=== PATIENT | male | born 1940 | race Caucasian/White ===

== ENCOUNTER 2017-01-03 13:08 | Emergency (ER) | payer BC, OTHER ==
[2017-01-03 13:24] VITALS: BP 151/72; PULSE 65; TEMP 97.4; BMI 33.3
--- NOTE | 2017-01-03 15:53 | PDOC ---
History of Present Illness - General Chief Complaint: Redness To Affected Area Stated Complaint: LT ARM/WRIST PAIN, SWOLLEN Time Seen by Provider: 01/03/17 14:07 Past History - Past Medical History Allergies/Adverse Reactions: Allergies Allergy/AdvReac Type Severity Reaction Status Date / Time No Known Allergies Allergy Verified 01/03/17 13:19 Home Medications: Ambulatory Orders Rivaroxaban [Xarelto -] 15 mg PO DAILY 09/11/15 Furosemide [Lasix -] 40 mg PO DAILY 05/04/16 Nebivolol HCl [Bystolic] 10 mg PO DAILY 05/04/16 Gabapentin [Neurontin -] 100 mg PO TID #90 capsule 05/13/16 Rosuvastatin [Crestor -] 5 mg PO HS tablet 05/13/16 Naproxen Sodium [Aleve] 220 mg PO PRN PRN 01/03/17 Oxycodone HCl/Acetaminophen [Percocet 5-325 mg Tablet] 1 tab PO TID PRN Anemia: No Asthma: No Cancer: No Cardiac Disorders: Yes (arrythmia; cad) CVA: No COPD: No Dementia: No Diabetes: No GI Disorders: No Disorders: No HTN: Yes Hypercholesterolemia: No Liver Disease: No Seizures: No Thyroid Disease: No Other medical history: pad - Surgical History Abdominal Surgery: No Appendectomy: No Cardiac Surgery: Yes (triple bypass 1992) Cholecystectomy: No Lung Surgery: No Neurologic Surgery: No Orthopedic Surgery: No - Psycho/Social/Smoking Cessation Hx Anxiety: No Suicidal Ideation: No Smoking History: Never smoked Have you smoked in the past 12 months: No Information on smoking cessation initiated: No Hx Alcohol Use: No Drug/Substance Use Hx: No Substance Use Type: None *Physical Exam - Vital Signs Last Vital Signs Temp Pulse Resp BP Pulse Ox 97.4 F L 65 18 151/72 95 01/03/17 13:19 01/03/17 13:19 01/03/17 13:19 01/03/17 13:19 01/03/17 13:19 Medical Decision Making - Medical Decision Making 01/03/17 15:02 Unable to locate patient in the emergency department, waiting area, ER ramp, or hallways. As per nurse information systems project manager patient was oppositional regards to changing over to a gown for evaluation and feels patient may have left before medical evaluation. *DC/Admit/Observation/Transfer Diagnosis at time of Disposition: lbme - Discharge Dispostion Disposition: LEFT BEFORE MED EVAL, [facility] Condition at time of disposition: Unchanged/Unknown - Referrals Referrals: Isidro Brooks PA [Primary Care Provider] -
== END 2017-01-03 16:30 | disposition left against medical advice (07) ==
LOC: JER 13:08
DX: Z53.21 Procedure and treatment not carried out due to patient leaving prior to being seen by health care provider (principal)
CPT/HCPCS: 99282-25

== ENCOUNTER 2018-10-10 18:43 | Emergency (ER) | payer BC, OTHER ==
--- NOTE | 2018-10-10 18:53 | PDOC ---
Rapid Medical Evaluation Time Seen by Provider: 10/10/18 18:49 Medical Evaluation: Allergies Allergy/AdvReac Type Severity Reaction Status Date / Time No Known Allergies Allergy Verified 01/03/17 13:19 10/10/18 18:50 I have performed a brief in-person evaluation of this patient. The patient presents with a chief complaint of: pedal edema Pertinent physical exam findings: End expiratory wheezes. RRR. s1s1. No m/r/g. I have ordered the following: labs, urine, CXR, EKG The patient will proceed to the ED for further evaluation. Discharge Disposition - Diagnosis Edema - Referrals - Patient Instructions - Post Discharge Activity
[2018-10-10 18:55] VITALS: BMI 32.1
[2018-10-10 20:01] LABS: BASO % 0.9 % (0-2.0); EOS % 5.9 % (0-4.5); HEMOGLOBIN 10.7 GM/dL (11.7-16.9); LYMPH % 12.7 % (8-40); MCH 29.3 pg (25.7-33.7); MCHC 34.5 g/dl (32.0-35.9); MEAN PLT VOLUME 6.3 fl (7.5-11.1); MONO % 7.2 % (3.8-10.2); NEUT % 73.3 % (42.8-82.8); PLATELET COUNT 359 K/MM3 (134-434); RBC 3.65 M/mm3 (4.00-5.60); RDW 15.3 % (11.9-15.9); WHITE BLOOD COUNT 8.1 K/mm3 (4.0-10.0)
[2018-10-10 20:08] LABS: INR 1.35 (0.83-1.09)
[2018-10-10 20:22] LABS: ALBUMIN 2.8 g/dl (3.4-5.0); ALK PHOS 88 U/L (45-117); ANION GAP 8 MMOL/L (8-16); BILIRUBIN,TOTAL 0.6 mg/dL (0.2-1); BLOOD UREA NITROGEN 26 mg/dL (7-18); CALCIUM 8.3 mg/dL (8.5-10.1); CHLORIDE 100 mmol/L (98-107); CO2 27 mmol/L (21-32); CREATININE 1.9 mg/dL (0.55-1.3); GLUCOSE,RANDOM 108 mg/dL (74-106); MAGNESIUM 2.3 mg/dL (1.8-2.4); N-TERMINAL BNP 3466.8 pg/ml (5-450); POTASSIUM 3.9 mmol/L (3.5-5.1); SGOT/AST 15 U/L (15-37); SGPT/ALT 12 U/L (13-61); SODIUM 135 mmol/L (136-145)
--- NOTE | 2018-10-10 22:21 | PDOC ---
History of Present Illness - General Chief Complaint: Edema Stated Complaint: PCP ADMIT/LEG PAIN Time Seen by Provider: 10/10/18 18:49 - History of Present Illness Initial Comments: 10/10/18 22:18 78 yo M with h/o HLD, HTN, CAD s/p CABG, A-fib on AC, who p/w BL LE edema. Patient reports 1 week of worsening BLE swelling. 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 Denies leg pain. Patient with crhonic leg redness, and non healing ulcers. Recent vasuclar procedure and debridement of LLE leg wound/ulcer. Denies recent leg trauma or recent immobilization, or calf pain. Lasix recently d/c'd x 2 weeks ago. Now on Toresmide 20 mg BID. No other complaints. Patient compliant with medications. Patient denies N/V, cough, wheezing, orthopnea, PND, F,C, CP, SOB, urinary complaints, abdominal pain, diarrhea, constipation, lightheadedness, weakness, sensory changes. PMHx: as noted above ROS: as noted Allergies: [facility] [employer] Dr. Margarette Aldrich [facility] Past History - Past Medical History Allergies/Adverse Reactions: Allergies Allergy/AdvReac Type Severity Reaction Status Date / Time No Known Allergies Allergy Verified 01/03/17 13:19 Home Medications: Ambulatory Orders Rivaroxaban [Xarelto] 15 mg PO DAILY 09/11/15 Gabapentin [Neurontin -] 100 mg PO TID #90 capsule 05/13/16 Oxycodone HCl/Acetaminophen [Percocet 5-325 mg Tablet] 1 tab PO TID PRN Atorvastatin Ca [Lipitor] 20 mg PO HS 10/10/18 Torsemide 20 mg PO BID 10/10/18 Anemia: No Asthma: No Cancer: No Cardiac Disorders: Yes (arrythmia; cad) CVA: No COPD: No Dementia: No Diabetes: No GI Disorders: No Disorders: No HTN: Yes Hypercholesterolemia: No Liver Disease: No Seizures: No Thyroid Disease: No - Surgical History Abdominal Surgery: No Appendectomy: No Cardiac Surgery: Yes (triple bypass 1992) Cholecystectomy: No Lung Surgery: No Neurologic Surgery: No Orthopedic Surgery: No - Suicide/Smoking/Psychosocial Hx Smoking History: Never smoked Have you smoked in the past 12 months: No Hx Alcohol Use: No Drug/Substance Use Hx: No Substance Use Type: None Review of Systems - Review of Systems Comments:: 10/10/18 22:20 GENERAL/CONSTITUTIONAL: No fever or chills. No weakness. HEAD, EYES, EARS, NOSE AND THROAT: No change in vision. No ear pain or discharge. No sore throat. CARDIOVASCULAR: No chest pain or shortness of breath RESPIRATORY: No cough, wheezing, or hemoptysis. GASTROINTESTINAL: No nausea, vomiting, diarrhea or constipation. GENITOURINARY: No dysuria, frequency, or change in urination. MUSCULOSKELETAL: BL LE edema. No joint or muscle pain. No neck or back pain. SKIN: No rash NEUROLOGIC: No headache, vertigo, loss of consciousness, or change in strength/ sensation. ENDOCRINE: No increased thirst. No abnormal weight change HEMATOLOGIC/LYMPHATIC: No anemia, easy bleeding, or history of blood clots. ALLERGIC/IMMUNOLOGIC: No hives or skin allergy. *Physical Exam - Vital Signs Last Vital Signs Temp Pulse Resp BP Pulse Ox 97.8 F 82 20 160/72 99 10/10/18 18:49 10/10/18 18:49 10/10/18 18:49 10/10/18 18:49 10/10/18 18:49 - Physical Exam Comments: 10/10/18 22:20 GENERAL: Awake, alert, and fully oriented, in no acute distress HEAD: No signs of trauma, normocephalic, atraumatic EYES: PERRLA, EOMI, sclera anicteric, conjunctiva clear ENT: Auricles normal inspection, hearing grossly normal, nares patent, oropharynx clear without exudates. Moist mucosa NECK: Normal ROM, supple, no lymphadenopathy, JVD, or masses LUNGS: No distress, speaks full sentences, clear to auscultation bilaterally HEART: Regular rate and rhythm, normal S1 and S2, no murmurs, rubs or gallops, peripheral pulses normal and equal bilaterally. EXTREMITIES : BL LE with circumferential, erythema extending from dorsum of foot to knee. 2+ pitting edema throughout BL LE. 2 x 2cm left pretibial ulcers with full thickness tissue loss, and absent bony visualization. BL LE with warmth, and slight ttp. difficult to palpate DP and PT pulses. Normal range of motion, No clubbing or cyanosis. SKIN: Warm, Dry, normal turgor, no rashes or lesions noted Moderate Sedation - Procedure Monitoring Vital Signs: Procedure Monitoring Vital Signs Temperature 97.8 F 10/10/18 18:49 Pulse Rate 82 10/10/18 18:49 Respiratory Rate 20 10/10/18 18:49 Blood Pressure 160/72 10/10/18 18:49 O2 Sat by Pulse Oximetry (%) 99 10/10/18 18:49 ED Treatment Course - LABORATORY CBC & Chemistry Diagram: 10/10/18 19:48 10/10/18 19:48 - ADDITIONAL ORDERS Additional order review: Laboratory Results 10/10/18 10/10/18 19:48 19:48 PT with INR 16.00 H INR 1.35 H Sodium 135 L Potassium 3.9 Chloride 100 Carbon Dioxide 27 Anion Gap 8 BUN 26 H Creatinine 1.9 H Creat Clearance w eGFR 34.46 Random Glucose 108 H Calcium 8.3 L Magnesium 2.3 Total Bilirubin 0.6 AST 15 ALT 12 L Alkaline Phosphatase 88 Creatine Kinase 61 Troponin I < 0.02 B-Natriuretic Peptide 3466.8 H Total Protein 9.0 H Albumin 2.8 L 10/10/18 19:48 RBC 3.65 L MCV 85.0 MCHC 34.5 RDW 15.3 MPV 6.3 L Neutrophils % 73.3 Lymphocytes % 12.7 Monocytes % 7.2 Eosinophils % 5.9 H D Basophils % 0.9 Medical Decision Making - Medical Decision Making 10/10/18 23:18 78 yo M with h/o HLD, HTN, CAD s/p CABG, A-fib on AC, who p/w acute on chronic BL LE edema. VSS, AF, A&OX3. + 2 + BL LE edema, with erythema, and warmth. No other evidence of fluid/volume overload. Lungs CTA. Low suspicon acute CHF. Low risk DVT based on Weils criteria. Possible cellultiis. Low suspicion nec. fasc. or abscess. Ed Course: clindamycin 10/10/18 23:24 WBC: 8.1 Patient with acute IMMANUEL BUN/CR: 26/1.9 (baseline Cr~1.5-1.9) 10/10/18 23:25 BNP: 3467, patient without resp complaints D/c with f/u wound care and cardiology. Medicine / Dr. Wilcox consulted and patient does not meet admission criteria. *DC/Admit/Observation/Transfer Diagnosis at time of Disposition: IMMANUEL (acute kidney injury) Edema Qualifiers: Edema type: unspecified Qualified Code(s): R60.9 - Edema, unspecified - Discharge Dispostion Condition at time of disposition: Stable Decision to Admit order: Yes - Referrals Referrals: Delfino Parks [Primary Care Provider] - Adalberto Owens MD [Non Staff, Medical] - - Patient Instructions Printed Discharge Instructions: DI for Peripheral Edema -- Bilateral Additional Instructions: Please return to the emergency department with any new or worsening symptoms or concerns. Please follow up with your primary care physician within 72 hours. Please follow up with wound care clinic/vascular within one week. - Post Discharge Activity
[2018-10-10] MEDS ORDERED: CLINDAMYCIN 600MG PREMIX IVPB 600 MG/50 ML BAG IVPB ONE (23:30)
--- NOTE | 2018-10-10 23:59 | PDOC ---
Attending Attestation - HPI HPI: 10/10/18 23:59 Patient is a 78 year old male with a significant past medical history of AFIB, CAD, CABG, Vein Stripping/Ligation, who presents to the ED with complaints of bilateral leg swelling that began last week. Patient reports experiencing chronic leg edema but states it began to gradually increase in intensity over time prompting him to come into the ED for further evaluation. He reports experiencing associated drainage from his legs as well as increased redness that begins at the knee and radiates towards his toes. Patient reports being prescribed lasix but states he was recently switched to torsemide x2 weeks ago and has been compliant with the medication. Denies chest pain, Sob. Denies nausea, vomiting. Denies fevers, chills. Denies contact with sick individuals, out of state travelling.. Denies dysuria, hematuria. Denies diarrhea, constipation. Denies trauma to affected area. Denies any other symptoms. Allergies: None Social history: Former smoker. No alcohol. No illicit drugs. Surgical history: triple bypass 1992 PMD: Dr. Parks <Denny Scott - Last Filed: 10/10/18 23:59> - Resident Resident Name: Manjinder Chiu - ED Attending Attestation I have performed the following: I have examined & evaluated the patient, The case was reviewed & discussed with the resident, I agree w/resident's findings & plan, Exceptions are as noted - Physicial Exam PE: 10/11/18 03:48 Agree with exam as documented by resident Ext consistent with skin irritation 2/2 chronic edema - Medical Decision Making 10/11/18 03:49 LE consistent with chronic edema and skin changes with uninfected ulcers distally No signs of infection f/u wound care c/w diruesis plan per pcp <Jan Prabhakar - Last Filed: 10/11/18 03:49>
[2018-10-11 00:39] VITALS: BP 139/68; PULSE 56; TEMP 97.9
--- NOTE | 2018-10-11 11:59 | EKG ---
Test Reason : Blood Pressure : / mmHG Vent. Rate : 066 BPM Atrial Rate : 060 BPM P-R Int : 000 ms QRS Dur : 108 ms QT Int : 432 ms P-R-T Axes : 000 060 -32 degrees QTc Int : 452 ms ATRIAL FIBRILLATION NONSPECIFIC T WAVE ABNORMALITY ABNORMAL ECG WHEN COMPARED WITH ECG OF 04-MAY-2016 17:35, NONSPECIFIC T WAVE ABNORMALITY NOW EVIDENT IN ANTERIOR LEADS Confirmed by MORIAH BLUM, DONOVAN ([id number]) on 10/11/2018 11:59:00 AM Referred By: Confirmed By:DONOVAN MAJOR MD
== END 2018-10-11 00:43 | disposition home or self-care (01) ==
LOC: JER 18:43
DX: N17.9 Acute kidney failure, unspecified (principal); R60.0 Localized edema; I25.810 Atherosclerosis of coronary artery bypass graft(s) without angina pectoris; I13.10 Hypertensive heart and chronic kidney disease without heart failure, with stage 1 through stage 4 chronic kidney disease, or unspecified chronic kidney disease; Z95.1 Presence of aortocoronary bypass graft; I48.91 Unspecified atrial fibrillation; Z79.01 Long term (current) use of anticoagulants; E78.5 Hyperlipidemia, unspecified
CPT/HCPCS: 36415; 71046-TC-FY; 80053; 82550; 83735; 83880; 84484; 85025; 85610; 93005; 93010; 99283-25

== ENCOUNTER 2019-07-22 18:53 | Inpatient (IN) | payer OTHER ==
--- NOTE | 2019-07-22 19:19 | PDOC ---
Rapid Medical Evaluation Medical Evaluation: Allergies Allergy/AdvReac Type Severity Reaction Status Date / Time No Known Allergies Allergy Verified 01/03/17 13:19 I have performed a brief in-person evaluation of this patient. The patient presents with a chief complaint of: hx AFIB, CAD, CABG, Vein Stripping/Ligation; c/o LLQ pain from 2 days ago; +emesis, denies diarrhea; last BM 3 days ago; denies urinary complaints; hx of inguinal hernia 1992, denies other abd surgeries Pertinent physical exam findings: In NAD, +TTP LUQ/LLQ I have ordered the following: Labs The patient will proceed to the ED for further evaluation. 07/22/19 19:15
--- NOTE | 2019-07-22 19:59 | PDOC ---
Attending Attestation - Resident Resident Name: Leopoldo Davis - ED Attending Attestation I have performed the following: I have examined & evaluated the patient, The case was reviewed & discussed with the resident, I agree w/resident's findings & plan - HPI HPI: 07/23/19 03:07 see resident hpi - Physicial Exam PE: 07/23/19 03:07 agree with resident exam - Medical Decision Making 07/23/19 03:07 79-year-old male with abdominal pain CT scan consistent with small bowel obstruction Plan for surgical consultation and admission
[2019-07-22 21:19] LABS: BASO % 0.5 % (0-2.0); EOS % 0.5 % (0-4.5); HEMATOCRIT 44.7 % (35.4-49); HEMOGLOBIN 14.7 GM/dL (11.7-16.9); LYMPH % 10.8 % (8-40); MCH 28.9 pg (25.7-33.7); MCHC 32.8 g/dl (32.0-35.9); MEAN CELL VOLUME 87.9 fl (80-96); MEAN PLT VOLUME 7.3 fl (7.5-11.1); MONO % 14.8 % (3.8-10.2); NEUT % 73.4 % (42.8-82.8); PLATELET COUNT 327 K/MM3 (134-434); RBC 5.09 M/mm3 (4.00-5.60); RDW 15.8 % (11.9-15.9)
[2019-07-22 21:37] LABS: INR 1.23 (0.83-1.09); PROTHROMBIN TIME (PATIENT) 14.6 SEC (9.7-13.0)
[2019-07-22 21:39] LABS: ACTIVATED PTT 34.8 SECONDS (25.2-36.5)
[2019-07-22 21:52] LABS: ALBUMIN 3.8 g/dl (3.4-5.0); BILIRUBIN,TOTAL 1.8 mg/dL (0.2-1); CALCIUM 9.6 mg/dL (8.5-10.1); CREATININE 2.2 mg/dL (0.55-1.3); POTASSIUM 4.7 mmol/L (3.5-5.1)
[2019-07-22] MEDS ORDERED: ACETAMINOPHEN 1000 MG/100 ML VIAL (NON FORMULARY) IVPB ONE (23:08)
--- NOTE | 2019-07-23 01:34 | PDOC ---
History of Present Illness - General Chief Complaint: Pain Stated Complaint: LOWER ABD PAIN Time Seen by Provider: 07/22/19 19:14 History Source: Patient - History of Present Illness Initial Comments: 07/23/19 02:34 Mr. Arevalo is a 79 y/o M with hx afib on eliquis, HTN, CABG, CHF p/w three days of lower abdominal pain, N, V. He reports that the pain began on Monday after eating a sandwhich and has been worsening since its onset. 06/22 intensity, no radiation, sharp. He endorses nausea that also began on Monday, as well as 3x NBNB vomiting today. He reports that he has maintained a liquid diet since it's onset as he has been nauseated and concerned that he would vomit with solid food. He reports that the episodes of emesis today were after attempting to eat crackers. Hernia repair in 1992. PCP: [facility] Associate: Valdemar Past History - Past Medical History Allergies/Adverse Reactions: Allergies Allergy/AdvReac Type Severity Reaction Status Date / Time No Known Allergies Allergy Verified 01/03/17 13:19 Home Medications: Ambulatory Orders Rivaroxaban [Xarelto] 15 mg PO DAILY 09/11/15 Gabapentin [Neurontin -] 100 mg PO TID #90 capsule 05/13/16 Oxycodone HCl/Acetaminophen [Percocet 5-325 mg Tablet] 1 tab PO TID PRN Atorvastatin Ca [Lipitor] 20 mg PO HS 10/10/18 Torsemide 20 mg PO BID 10/10/18 Anemia: No Asthma: No Cancer: No Cardiac Disorders: Yes (arrythmia; cad) CVA: No COPD: No Dementia: No Diabetes: No GI Disorders: No Disorders: No HTN: Yes Hypercholesterolemia: No Liver Disease: No Seizures: No Thyroid Disease: No - Surgical History Abdominal Surgery: No Appendectomy: No Cardiac Surgery: Yes (triple bypass 1992) Cholecystectomy: No Lung Surgery: No Neurologic Surgery: No Orthopedic Surgery: No - Suicide/Smoking/Psychosocial Hx Smoking History: Current every day smoker Have you smoked in the past 12 months: No Number of Cigarettes Smoked Daily: 1 Information on smoking cessation initiated: No Hx Alcohol Use: No Drug/Substance Use Hx: No Substance Use Type: None Review of Systems - Review of Systems Able to Perform ROS?: Yes Comments:: 07/23/19 03:45 ROS: GENERAL/CONSTITUTIONAL: No fever or chills. No weakness. HEAD, EYES, EARS, NOSE AND THROAT: No change in vision. No ear pain or discharge. No sore throat. CARDIOVASCULAR: No chest pain or shortness of breath RESPIRATORY: No cough, wheezing, or hemoptysis. GASTROINTESTINAL: Nausea, vomiting, constipation, watery diarrhea. GENITOURINARY: No dysuria, frequency, or change in urination. MUSCULOSKELETAL: No joint or muscle swelling or pain. No neck or back pain. SKIN: No rash NEUROLOGIC: No headache, vertigo, loss of consciousness, or change in strength/ sensation. ENDOCRINE: No increased thirst. No abnormal weight change HEMATOLOGIC/LYMPHATIC: No anemia, easy bleeding, or history of blood clots. ALLERGIC/IMMUNOLOGIC: No hives or skin allergy. *Physical Exam - Vital Signs Last Vital Signs Temp Pulse Resp BP Pulse Ox 98.2 F 64 18 108/59 L 100 07/22/19 19:16 07/22/19 19:16 07/22/19 19:16 07/22/19 19:16 07/22/19 19:16 - Physical Exam Comments: 07/23/19 03:42 PE: GENERAL: Awake, alert, and fully oriented, mild distress HEAD: No signs of trauma, normocephalic, atraumatic EYES: PERRLA, EOMI, sclera anicteric, conjunctiva clear ENT: Auricles normal inspection, hearing grossly normal, nares patent, oropharynx clear without exudates. Moist mucosa NECK: Normal ROM, supple, no lymphadenopathy, JVD, or masses LUNGS: No distress, speaks full sentences, clear to auscultation bilaterally HEART: Regular rate and rhythm, normal S1 and S2, no murmurs, rubs or gallops, peripheral pulses normal and equal bilaterally. ABDOMEN: Mild tenderness with deep palpations of LLQ, RLQ. Soft, normoactive bowel sounds. No guarding, no rebound. No masses EXTREMITIES : Normal inspection, Normal range of motion, no edema. No clubbing or cyanosis NEUROLOGICAL: Normal speech, normal gait, no focal sensorimotor deficits SKIN: Warm, Dry, normal turgor, no rashes or lesions noted ED Treatment Course - LABORATORY CBC & Chemistry Diagram: 07/22/19 21:05 07/22/19 21:05 - ADDITIONAL ORDERS Additional order review: Laboratory Results 07/22/19 07/22/19 07/22/19 21:05 21:05 21:05 PT with INR 14.60 H INR 1.23 H PTT (Actin FS) 34.8 Sodium Potassium Chloride Carbon Dioxide Anion Gap BUN Creatinine Est GFR (CKD-EPI)AfAm Est GFR (CKD-EPI)NonAf Random Glucose Lactic Acid 2.0 Calcium Total Bilirubin AST ALT Alkaline Phosphatase Creatine Kinase 98 Troponin I < 0.02 Total Protein Albumin Lipase 07/22/19 21:05 PT with INR INR PTT (Actin FS) Sodium 137 Potassium 4.7 Chloride 96 L Carbon Dioxide 32 Anion Gap 9 BUN 44.0 H Creatinine 2.2 H Est GFR (CKD-EPI)AfAm 31.84 Est GFR (CKD-EPI)NonAf 27.47 Random Glucose 109 H Lactic Acid Calcium 9.6 Total Bilirubin 1.8 H AST 21 ALT 15 Alkaline Phosphatase 98 Creatine Kinase Troponin I Total Protein 9.0 H Albumin 3.8 Lipase 79 07/22/19 21:05 RBC 5.09 MCV 87.9 MCHC 32.8 RDW 15.8 MPV 7.3 L D Neutrophils % 73.4 Lymphocytes % 10.8 Monocytes % 14.8 H D Eosinophils % 0.5 D Basophils % 0.5 - RADIOLOGY Radiology Studies Ordered: Category Date Time Status ABDOMEN & PELVIS CT W/O CONTR [CT] Stat CT Scan 07/23/19 00:13 Taken - Medications Given in the ED: ED Medications Discontinued Medications Generic Name Dose Route Start Last Admin Trade Name Freq PRN Reason Stop Dose Admin Acetaminophen 1,000 mg 07/22/19 23:08 07/23/19 00:10 Ofirmev Injection - IVPB 07/22/19 23:09 1,000 mg ONCE ONE Administration Medical Decision Making - Medical Decision Making 79 M with hx afib on eliquis, HTN, CABG, CHF p/w three days of lower abdominal pain, N, V, constipation, concerning for SBO vs other abdominal pathology. Plan: CBC CMP Lactate Lipase UA CT abdomen pelvis Dispo: Pending imaging, labs 07/23/19 02:45 CT notable for small bowel obstruction - R inguinal hernia with dilated bowel entering, collapsed bowel exiting. Transition zone - distal ileum within R sided inguinal hernia sac. Calcifications of L inguinal hernia sac. Some fluid in hernia sacs, in peritoneal cavity. 07/23/19 04:[address] Barone, he will see pt in AM. Plan for admission. *DC/Admit/Observation/Transfer Diagnosis at time of Disposition: Small bowel obstruction - Discharge Dispostion Condition at time of disposition: Stable Decision to Admit order: Yes - Referrals - Patient Instructions - Post Discharge Activity
[2019-07-23 01:51] LABS: EPI CELLS 2.6 /HPF (0-5/HPF); HYALINE CASTS 28 /lpf (0-8); URINE APPEARANCE CLOUDY; URINE BACTERIA 1185.1 /hpf (NEGATIVE); URINE BILIRUBIN 2+ (NEGATIVE); URINE COLOR DK YELLOW; URINE GLUCOSE (UA) NEGATIVE (NEGATIVE); URINE KETONE TRACE (NEGATIVE); URINE LEUK ESTERASE 1+ (NEGATIVE); URINE NITRITE NEGATIVE (NEGATIVE); URINE PROTEIN TRACE (NEGATIVE); URINE WBC 42 /hpf (0-5)
[2019-07-23 02:08] LABS: URINE RBC 4 /hpf (0-4)
--- NOTE | 2019-07-23 04:45 | HP ---
Admitting History and Physical - Primary Care Physician PCP: Dr. Sherman - Admission Chief Complaint: Lower/Mid abdomen pain History Source: Patient Limitations to Obtaining History: No Limitations - Past Medical History Cardiovascular: Yes: AFIB, CAD, CHF, HTN Musculoskeletal: Yes: Other (pvd/venous statsis b/l) - Past Surgical History Past Surgical History: Yes: CABG, Vein Stripping/Ligation (left leg) - Smoking History Smoking history: Current every day smoker Have you smoked in the past 12 months: No Aproximately how many cigarettes per day: 1 - Alcohol/Substance Use Hx Alcohol Use: No Home Medications - Allergies Allergies/Adverse Reactions: Allergies Allergy/AdvReac Type Severity Reaction Status Date / Time No Known Allergies Allergy Verified 01/03/17 13:19 - Home Medications Home Medications: Ambulatory Orders Rivaroxaban [Xarelto] 15 mg PO DAILY 09/11/15 Gabapentin [Neurontin -] 100 mg PO TID #90 capsule 05/13/16 Oxycodone HCl/Acetaminophen [Percocet 5-325 mg Tablet] 1 tab PO TID PRN Atorvastatin Ca [Lipitor] 20 mg PO HS 10/10/18 Torsemide 20 mg PO BID 10/10/18 Family Disease History - Family Disease History Family Disease History: Diabetes: Mother Review of Systems - Review of Systems Constitutional: reports: No Symptoms Eyes: reports: No Symptoms HENT: reports: No Symptoms Neck: reports: No Symptoms Cardiovascular: reports: No Symptoms Respiratory: reports: No Symptoms Gastrointestinal: reports: Abdominal Pain (lower abdominal pain, N, V, constipation - monday night had watery diarrhea x1) Genitourinary: reports: No Symptoms Musculoskeletal: reports: No Symptoms Integumentary: reports: No Symptoms Neurological: reports: No Symptoms Endocrine: reports: No Symptoms Hematology/Lymphatic: reports: No Symptoms Psychiatric: reports: No Symptoms Physical Examination Vital Signs: Vital Signs Temperature 97.3 F L 07/23/19 01:33 Pulse Rate 81 07/23/19 01:33 Respiratory Rate 20 07/23/19 01:33 Blood Pressure 136/75 07/23/19 01:33 O2 Sat by Pulse Oximetry (%) 96 07/23/19 01:33 Constitutional: Yes: No Distress, Calm Eyes: Yes: Conjunctiva Clear, EOM Intact HENT: Yes: Atraumatic, Normocephalic Neck: Yes: Supple, Trachea Midline Respiratory: Yes: Regular, CTA Bilaterally Gastrointestinal: Yes: Normal Bowel Sounds, Soft, Other (mild tenderness with deep palpations of LLQ, RLQ) Musculoskeletal: Yes: WNL Extremities: Yes: WNL Integumentary: Yes: WNL Neurological: Yes: Alert, Oriented Labs: CBC, BMP 07/22/19 21:05 07/22/19 21:05 Imaging - Results Cat Scan: Pending, Report Reviewed (CT Abd: notable for small bowel obstruction - R inguinal hernia with dilated bowel entering, collapsed bowel exiting. Transition zone - distal ileum within R sided inguinal hernia sac. Calcifications of L inguinal hernia sac. Some fluid in hernia sacs, in peritoneal cavity.) Problem List - Problems (1) CKD (chronic kidney disease) Code(s): N18.9 - CHRONIC KIDNEY DISEASE, UNSPECIFIED (2) CHF (congestive heart failure) Code(s): I50.9 - HEART FAILURE, UNSPECIFIED (3) Small bowel obstruction Code(s): K56.609 - UNSP INTESTNL OBST, UNSP TO PARTIAL VERSUS COMPLETE OBST (4) Hyperlipidemia Code(s): E78.5 - HYPERLIPIDEMIA, UNSPECIFIED Qualifiers: Hyperlipidemia type: Pure hypercholesterolemia (5) Hypertension Code(s): I10 - ESSENTIAL (PRIMARY) HYPERTENSION Qualifiers: Hypertension type: essential hypertension Qualified Code(s): I10 - Essential (primary) hypertension (6) S/P CABG (coronary artery bypass graft) Code(s): Z95.1 - PRESENCE OF AORTOCORONARY BYPASS GRAFT Assessment/Plan 79 y/o M with hx afib on eliquis, HTN, CABG, CHF arrived to ED for three days of lower abdominal pain, N, V. Patient reports that the pain began on Monday after eating a sandwich and has been worsening since its onset. pain 8/10, no radiation, sharp at times. patient complains of nausea that began on Monday, as well as 3x NBNB vomiting today. Patient has been avoiding whole food, has been maintained a liquid diet since onset of symptoms. # SBO CT Abd: notable for small bowel obstruction - R inguinal hernia with dilated bowel entering, collapsed bowel exiting. Transition zone - distal ileum within R sided inguinal hernia sac. Calcifications of L inguinal hernia sac. Some fluid in hernia sacs, in peritoneal cavity. - NPO - will start low rate IV fluids - follow up cbc, bmp - follow up Dr. Barone in AM # CKD - monito renal function - continue with low rate hydration # A-fib, HTN, h/o CABG, CHF - monitor vitals - hold home meds for now until cleared by surgery - Rivaroxaban 15 mg PO DAILY - Atorvastatin Ca 20 mg PO HS - Torsemide 20 mg PO BID DVT: heparin SQ for now, until cleared by surgery for Po meds Diet: NPO Visit type - Emergency Visit Emergency Visit: Yes Care time: The patient presented to the Emergency Department on the above date and was hospitalized for further evaluation of their emergent condition. - New Patient This patient is new to me today: Yes Date on this admission: 07/23/19 - Critical Care Critical Care patient: No
[2019-07-23] MEDS ORDERED: SODIUM CHLORIDE 1,000 ML IV SCH (05:15)
[2019-07-23] MEDS ORDERED: ACETAMINOPHEN 1000 MG/100 ML VIAL (NON FORMULARY) IVPB ONE ×2 (08:12→14:00)
--- NOTE | 2019-07-23 09:17 | CONSULT ---
Consult Consult Specialty:: General Surgery Reason for Consultation:: SBO - History of Present Illness Chief Complaint: Abdominal Pain and Vomiting History of Present Illness: 79 yo male PMH Afib on eliquis, HTN, CABG, CHF presented to the ED with three days of lower abdominal pain, nausea and vomiting. He reports that the pain began on Monday after eating a sandwhich and has been worsening since its onset. 8/10 intensity, no radiation, sharp. He endorses nausea that also began on Monday, as well as 3x NBNB vomiting today. He reports that he has maintained a liquid diet since it's onset as he has been nauseated and concerned that he would vomit with solid food. He reports that the episodes of emesis today were after attempting to eat crackers. Hernia repair in 1992. no previous colonoscopy (he refused when offred by PMD) we were called to assess. - History Source History Provided By: Patient, Medical Record Limitations to Obtaining History: No Limitations - Past Medical History Cardio/Vascular: Yes: AFIB, CAD, CHF, HTN Musculoskeletal: Yes: Other (pvd/venous statsis b/l) - Past Surgical History Past Surgical History: Yes: CABG, Vein Stripping/Ligation (left leg) - Alcohol/Substance Use Hx Alcohol Use: No History of Substance Use: reports: None - Smoking History Smoking history: Current every day smoker Have you smoked in the past 12 months: No Aproximately how many cigarettes per day: 1 - Social History Place of : [facility] History of Recent Travel: No Home Medications - Allergies Allergies/Adverse Reactions: Allergies Allergy/AdvReac Type Severity Reaction Status Date / Time No Known Allergies Allergy Verified 01/03/17 13:19 - Home Medications Home Medications: Ambulatory Orders Rivaroxaban [Xarelto] 15 mg PO DAILY 09/11/15 Gabapentin [Neurontin -] 100 mg PO TID #90 capsule 05/13/16 Oxycodone HCl/Acetaminophen [Percocet 5-325 mg Tablet] 1 tab PO TID PRN Atorvastatin Ca [Lipitor] 20 mg PO HS 10/10/18 Torsemide 20 mg PO BID 10/10/18 Family Disease History - Family Disease History Family Disease History: Diabetes: Mother Review of Systems - Review of Systems Constitutional: denies: Chills, Fever Eyes: denies: Blind Spots, Recent Change in Vision HENT: denies: Difficult Swallowing, Throat Pain Neck: denies: Decreased ROM, Tenderness Cardiovascular: denies: Chest Pain, Palpitations Respiratory: denies: Cough, SOB Gastrointestinal: reports: Abdominal Pain, Constipation, Vomiting Genitourinary: denies: Burning, Discharge, Dysuria Breasts: reports: No Symptoms Reported. denies: Pain Musculoskeletal: denies: Joint Swelling, Muscle Pain Integumentary: denies: Lump, Rash Neurological: denies: Seizure, Syncope Endocrine: denies: Unexplained Weight Gain, Unexplained Weight Loss Hematology/Lymphatic: denies: Easily Bruised, Excessive Bleeding Psychiatric: denies: Anxiety, Depression Physical Exam Vital Signs: Vital Signs Temperature 97.8 F 07/23/19 08:18 Pulse Rate 84 07/23/19 08:18 Respiratory Rate 16 07/23/19 08:18 Blood Pressure 143/79 07/23/19 08:18 O2 Sat by Pulse Oximetry (%) 95 07/23/19 08:18 Constitutional: Yes: Well Nourished, No Distress, Calm Eyes: Yes: Conjunctiva Clear, EOM Intact HENT: Yes: Atraumatic, Normocephalic Neck: Yes: Supple, Trachea Midline Cardiovascular: Yes: Regular Rate and Rhythm, S1, S2 Respiratory: Yes: Regular, CTA Bilaterally Gastrointestinal: Yes: Normal Bowel Sounds, Soft, Abdomen, Obese, Distention, Hernia (Bilateral inguinal hernias, right is non reducible) ...Rectal Exam: Yes: Deferred Renal/: No: CVA Tenderness - Left, CVA Tenderness - Right Breast(s): No: Mass, Nipple Inversion, Skin Changes Musculoskeletal: No: Muscle Pain, Muscle Weakness Extremities: No: Cool, Cyanosis Edema: No Peripheral Pulses WNL: Yes Integumentary: No: Jaundice, Rash Neurological: Yes: Alert, Oriented Psychiatric: Yes: Alert, Oriented Labs: CBC, BMP 07/22/19 21:05 07/22/19 21:05 Imaging - Results Cat Scan: Report Reviewed, Image Reviewed Problem List - Problems (1) Incarcerated right inguinal hernia Assessment/Plan: 79 yo male with MMP with recurrent incarcerated right inginal hernia causing SBO and a reducible left inguinal hernia NPO and IVF hydration IV antibiotcis Adequate analgesia OR for repair of recurrent incarcerted right inguinal hernia with mesh Discussed with patient risks, benefits and alternatives of laparoscopic possible open ectomy, including but not limited to bleeding, infection, injury to adjacent structures, leak or injury, intraabdominal abscess, incisional hernia, need for further procedures, ; alternatives include antibiotics, delayed or no surgery - risks of this include failure of nonoperative therapy, perforation, sepsis, recurrence, . Patient desires to proceed with operation - will take to OR for above. Informed consent signed for same. Thank you for the opportunity to participate in the care of this patient. Code(s): K40.30 - UNIL INGUINAL HERNIA, W OBST, W/O GANGR, NOT SPCF RECUR (2) CHF (congestive heart failure) Code(s): I50.9 - HEART FAILURE, UNSPECIFIED Qualifiers: Heart failure type: diastolic Heart failure chronicity: chronic Qualified Code(s): I50.32 - Chronic diastolic (congestive) heart failure (3) CKD (chronic kidney disease) Code(s): N18.9 - CHRONIC KIDNEY DISEASE, UNSPECIFIED Qualifiers: Chronic kidney disease stage: stage 3 (moderate) Qualified Code(s): N18.3 - Chronic kidney disease, stage 3 (moderate) (4) IMMANUEL (acute kidney injury) Code(s): N17.9 - ACUTE KIDNEY FAILURE, UNSPECIFIED (5) Atrial fibrillation Code(s): I48.91 - UNSPECIFIED ATRIAL FIBRILLATION Qualifiers: Atrial fibrillation type: persistent Qualified Code(s): I48.1 - Persistent atrial fibrillation
--- NOTE | 2019-07-23 09:32 | PDOC ---
*Physical Exam - Vital Signs Last Vital Signs Temp Pulse Resp BP Pulse Ox 97.8 F 84 16 143/79 95 07/23/19 08:18 07/23/19 08:18 07/23/19 08:18 07/23/19 08:18 07/23/19 08:18 ED Treatment Course - LABORATORY CBC & Chemistry Diagram: 07/22/19 21:05 07/22/19 21:05 - ADDITIONAL ORDERS Additional order review: Laboratory Results 07/23/19 07/22/19 07/22/19 00:45 21:05 21:05 PT with INR 14.60 H INR 1.23 H PTT (Actin FS) 34.8 Sodium Potassium Chloride Carbon Dioxide Anion Gap BUN Creatinine Est GFR (CKD-EPI)AfAm Est GFR (CKD-EPI)NonAf Random Glucose Lactic Acid 2.0 Calcium Total Bilirubin AST ALT Alkaline Phosphatase Creatine Kinase Troponin I Total Protein Albumin Lipase Urine Color Dk yellow Urine Appearance Cloudy Urine pH 5.0 Ur Specific [place] 1.031 Urine Protein Trace Urine Glucose (UA) Negative Urine Ketones Trace H Urine Blood Negative Urine Nitrite Negative Urine Bilirubin 2+ H Urine Urobilinogen 1.0 Ur Leukocyte Esterase 1+ H Urine WBC (Auto) 42 Urine RBC (Auto) 4 Urine Casts (Auto) 28 U Pathogenic Cast Auto None seen U Epithel Cells (Auto) 2.6 Urine Bacteria (Auto) 1185.1 07/22/19 07/22/19 21:05 21:05 PT with INR INR PTT (Actin FS) Sodium 137 Potassium 4.7 Chloride 96 L Carbon Dioxide 32 Anion Gap 9 BUN 44.0 H Creatinine 2.2 H Est GFR (CKD-EPI)AfAm 31.84 Est GFR (CKD-EPI)NonAf 27.47 Random Glucose 109 H Lactic Acid Calcium 9.6 Total Bilirubin 1.8 H AST 21 ALT 15 Alkaline Phosphatase 98 Creatine Kinase 98 Troponin I < 0.02 Total Protein 9.0 H Albumin 3.8 Lipase 79 Urine Color Urine Appearance Urine pH Ur Specific [place] Urine Protein Urine Glucose (UA) Urine Ketones Urine Blood Urine Nitrite Urine Bilirubin Urine Urobilinogen Ur Leukocyte Esterase Urine WBC (Auto) Urine RBC (Auto) Urine Casts (Auto) U Pathogenic Cast Auto U Epithel Cells (Auto) Urine Bacteria (Auto) 07/22/19 21:05 RBC 5.09 MCV 87.9 MCHC 32.8 RDW 15.8 MPV 7.3 L D Neutrophils % 73.4 Lymphocytes % 10.8 Monocytes % 14.8 H D Eosinophils % 0.5 D Basophils % 0.5 - Medications Given in the ED: ED Medications Discontinued Medications Generic Name Dose Route Start Last Admin Trade Name Thu PRN Reason Stop Dose Admin Acetaminophen 1,000 mg 07/22/19 23:08 07/23/19 00:10 Ofirmev Injection - IVPB 07/22/19 23:09 1,000 mg ONCE ONE Administration Acetaminophen 1,000 mg 07/23/19 08:12 07/23/19 08:29 Ofirmev Injection - IVPB 07/23/19 08:13 1,000 mg ONCE ONE Administration Medical Decision Making - Medical Decision Making 07/23/19 09:30 Elvin Arevalo is a 79yM w SBO NG tube not placed because hospital does not have NG tubes in supply. OG tubes do not connect to wall suction Attempted to place gastric tube x2 in both nostrils, pt refused due to discomfort. *DC/Admit/Observation/Transfer Diagnosis at time of Disposition: Small bowel obstruction - Discharge Dispostion Condition at time of disposition: Stable - Referrals - Patient Instructions - Post Discharge Activity
[2019-07-23 09:34] LABS: HEMATOCRIT 41.7 % (35.4-49); HEMOGLOBIN 13.8 GM/dL (11.7-16.9); MCH 29.1 pg (25.7-33.7); MCHC 33.2 g/dl (32.0-35.9); MEAN CELL VOLUME 87.8 fl (80-96); MEAN PLT VOLUME 7.3 fl (7.5-11.1); PLATELET COUNT 275 K/MM3 (134-434); RBC 4.75 M/mm3 (4.00-5.60); RDW 16.3 % (11.9-15.9); WHITE BLOOD COUNT 3.8 K/mm3 (4.0-10.0)
[2019-07-23 09:53] LABS: BLOOD UREA NITROGEN 53.2 mg/dL (7-18); CALCIUM 9.1 mg/dL (8.5-10.1); CREATININE 2.1 mg/dL (0.55-1.3); POTASSIUM 3.9 mmol/L (3.5-5.1)
[2019-07-23] MEDS: HEPARIN NA (PORCINE) 5,000 UNITS/ML 1ML VIAL SQ SCH ×3 (10:25→21:37)
--- NOTE | 2019-07-23 10:50 | EKG ---
Test Reason : Blood Pressure : / mmHG Vent. Rate : 092 BPM Atrial Rate : 086 BPM P-R Int : 000 ms QRS Dur : 100 ms QT Int : 386 ms P-R-T Axes : 000 059 260 degrees QTc Int : 477 ms POOR DATA QUALITY, INTERPRETATION MAY BE ADVERSELY AFFECTED ATRIAL FIBRILLATION T WAVE ABNORMALITY, CONSIDER INFEROLATERAL ISCHEMIA PROLONGED QT ABNORMAL ECG WHEN COMPARED WITH ECG OF 10-OCT-2018 19:55, T WAVE INVERSION MORE EVIDENT IN INFERIOR LEADS T WAVE INVERSION NOW EVIDENT IN LATERAL LEADS Confirmed by Lexa Mattson MD ([id number]) on 07/23/2019 10:50:22 AM Referred By: Confirmed By:Lexa Mattson MD
--- NOTE | 2019-07-23 11:00 | PN ---
Progress Note, Physician Chief Complaint: SBO History of Present Illness: 79 year old pleasant male, reluctant to get surgical intervention for SBO. Wants to consult Jagruti Mcfadden-Cardiology from [facility], would like to get transferred if Dr Aldrich agrees. Denies any pain or discomfort during my exam. Seen by surgery - Current Medication List Current Medications: Active Medications Heparin Sodium (Porcine) (Heparin -) 5,000 unit SQ BID [facility] Last Admin: 07/23/19 10:25 Dose: 5,000 unit Sodium Chloride (Normal Saline -) 1,000 mls @ 42 mls/hr IV ASDIR [facility] Last Admin: 07/23/19 05:32 Dose: 42 mls/hr - Objective Vital Signs: Vital Signs Temperature 97.8 F 07/23/19 08:18 Pulse Rate 84 07/23/19 08:18 Respiratory Rate 16 07/23/19 08:18 Blood Pressure 143/79 07/23/19 08:18 O2 Sat by Pulse Oximetry (%) 95 07/23/19 08:18 Constitutional: Yes: Well Nourished, No Distress, Calm Cardiovascular: Yes: Pulse Irregular Respiratory: Yes: Regular Gastrointestinal: Yes: Abdomen, Obese, Hypoactive Bowel Sounds, Other (diffuse rigidity) Musculoskeletal: Yes: WNL Extremities: Yes: WNL Edema: No Peripheral Pulses WNL: Yes Integumentary: Yes: Erythema (BLLE) Wound/Incision: Yes: Dressing Dry and Intact (BLLE javier bandage for PVD) Neurological: Yes: Alert, Oriented Psychiatric: Yes: Alert, Oriented Labs: CBC, BMP 07/23/19 09:10 07/23/19 09:10 INR, PTT INR 1.23 (0.83-1.09) H 07/22/19 21:05 Problem List - Problems (1) Small bowel obstruction Assessment/Plan: -CT Abd: notable for small bowel obstruction - R inguinal hernia with dilated bowel entering, collapsed bowel exiting. Transition zone - distal ileum within R sided inguinal hernia sac. Calcifications of L inguinal hernia sac. Some fluid in hernia sacs, in peritoneal cavity. -Seen by general surgery -Pt refused NG/OG -NPO -Change IVF to D51/2NS+[id number] @50cc/hr Code(s): K56.609 - UNSP INTESTNL OBST, UNSP TO PARTIAL VERSUS COMPLETE OBST (2) Atrial fibrillation Assessment/Plan: -AC on hold pending surgical intervention -Pt refuses dvt ppx Code(s): I48.91 - UNSPECIFIED ATRIAL FIBRILLATION Qualifiers: Atrial fibrillation type: persistent Qualified Code(s): I48.1 - Persistent atrial fibrillation (3) Venous (peripheral) insufficiency Assessment/Plan: -Continue with Javier bandage dressing daily -BLLE elevation Code(s): I87.2 - VENOUS INSUFFICIENCY (CHRONIC) (PERIPHERAL) Assessment/Plan -Pending surgical intervention, if patient agrees or gets transferred to [facility]. Dr Barone has already initiated communication to reach Dr Aldrich.
[2019-07-23] MEDS ORDERED: ACETAMINOPHEN 1000 MG/100 ML VIAL (NON FORMULARY) IVPB PRN (11:07)
[2019-07-23] MEDS ORDERED: D5-NS + 20 MEQ KCL - 20 MEQ/1,000 ML INFUS.BAG IV SCH (11:15)
[2019-07-23] MEDS ORDERED: PETROLATUM, WHITE 30 GM TUBE TP SCH (11:30)
[2019-07-23] MEDS ORDERED: D5-1/2NS+20 MEQ KCL - 20 MEQ/1,000 ML INFUS.BAG IV SCH (11:30)
[2019-07-23] MEDS ORDERED: ROCURONIUM BROMIDE 50 MG/5 ML SYRINGE ONE (12:09)
[2019-07-23] MEDS ORDERED: DEXAMETHASONE SOD PHOSPHATE 4 MG/1 ML VIAL ONE (12:12)
[2019-07-23] MEDS ORDERED: KETOROLAC TROMETHAMINE 30 MG/1 ML VIAL ONE (12:12)
[2019-07-23] MEDS ORDERED: LIDOCAINE HCL/PF 2% SDV 5ML VIAL ONE (12:12)
[2019-07-23] MEDS ORDERED: PROPOFOL 20 ML ONE ×2 (12:13)
[2019-07-23] MEDS ORDERED: SUCCINYLCHOLINE CHLORIDE 200 MG/10 ML SYRINGE ONE (12:14)
[2019-07-23] MEDS ORDERED: MIDAZOLAM HCL 2 MG/2 ML SINGLE DOSE VIAL ONE (12:34)
[2019-07-23] MEDS ORDERED: ONDANSETRON 4 MG/2 ML VIAL IVPUSH PRN (12:38)
[2019-07-23] MEDS ORDERED: LIDOCAINE HCL 1%, 10 MG/ML (20ML VIAL) ONE (12:45)
[2019-07-23] MEDS ORDERED: BUPIVACAINE HCL/PF 0.5% (5 MG/ML) 30 ML VIAL IJ ONE ×2 (12:45→13:04)
[2019-07-23] MEDS ORDERED: LACTATED RINGERS SOLUTION 1,000 ML IV SCH (12:45)
[2019-07-23] MEDS ORDERED: LIDOCAINE HCL 1%, 10 MG/ML (20ML VIAL) INF ONE (13:05)
[2019-07-23] MEDS ORDERED: ceFAZolin SODIUM 1 GM VIAL ONE (13:30)
[2019-07-23] MEDS ORDERED: ceFAZolin SODIUM 1 GM VIAL IVPB ONE (13:31)
[2019-07-23] MEDS ORDERED: NEOSTIGMINE METHYLSULFATE 0.5 MG/ML - 10 ML MDV ONE (14:52)
--- NOTE | 2019-07-23 15:18 | OP ---
Operative Note - Note: Operative Date: 07/23/19 Pre-Operative Diagnosis: recurrent incarcerted right inguinal hernia with small bowel obstruction Operation: repair of recurrent incarcerated/ strangulated right inguinal hernia with mesh, removal of right inguinal hernia mesh, segmental resection of small bowel with primary stapled anatomisis Findings: recurrent incarcerted right inguinal hernia, strangulated stricture of small intestines, segmental resection of this area with a primary stapled anastomosis. Onlay phasixs mesh used to reinforce the resecured area of repair Implants: phasics mesh [id number] cut to [id number] Post-Operative Diagnosis: Same as Pre-op Surgeon: Xavier Barone Tool Procurement Coordinator: Onofre Abrams Anesthesiologist/INSULATION SPRAYER: Stephanie Fitzpatrick Anesthesia: General Specimens Removed: explanted mesh and segment of small intestines Estimated Blood Loss (mls): 10 Drains & Tubes with Location: shanks and gastric tube (single lumen) Drains, Volume Out (mls): 40 (UOP (shanks)) Fluid Volume Replaced (mls): 1,200
[2019-07-23] MEDS: D5-1/2NS+20 MEQ KCL - 20 MEQ/1,000 ML INFUS.BAG IV SCH (18:15)
--- NOTE | 2019-07-23 19:07 | OP ---
DATE OF OPERATION: 07/23/2019 PREOPERATIVE DIAGNOSIS: Recurrent incarcerated right inguinal hernia with small-bowel obstruction. POSTOPERATIVE DIAGNOSIS: Recurrent incarcerated right inguinal hernia with small-bowel obstruction. PROCEDURE: Repair of incarcerated strangulated right inguinal hernia with mesh, removal of right inguinal hernia mesh, and segmental resection of small bowel with primary stapled anastomosis. ATTENDING SURGEON: Xavier Barone MD LEAD DATA ENTRY OPERATOR: Onofre Abrams MD ANESTHESIA: Stephanie Fitzpatrick, REF-CRN ANESTHESIA TYPE: General. SPECIMEN REMOVED: Explanted mesh and a segment of small intestines. ESTIMATED BLOOD LOSS: 10 mL. IV FLUID ADMINISTERED: 1200 mL. DRAINS: Munroe and single-lumen gastric tube to intermittent suction. URINE OUTPUT: 40 mL during the case. IMPLANT: A Phasix mesh 4 x 6, cut down to 2 x 6 inches. BRIEF FINDINGS: The patient had a recurrent incarcerated right inguinal hernia, a strangulated stricture of small intestines. Segmental resection of this area was performed in a primary stapled anastomosis. Onlay Phasix mesh used to reinforce the area and secured in the area of the repair. INDICATION: The patient is a 79-year-old male presenting with bowel obstructive symptoms for a period of 1 week. He was obstipated, he was dehydrated. CAT scan revealed a segment of small intestines incarcerated in the right inguinal hernia, although he had bilateral inguinal hernias. A previous right inguinal hernia repair had failed. He was counseled regarding risks, benefits, and alternatives to surgical repair, signed informed consent, and was taken for procedure. PROCEDURE: The patient was brought to the operating room, placed in supine position on the operating table. The lower extremities had SCDs placed to compression. The patient was induced with general anesthesia and endotracheally intubated without incident. He received intravenous Ancef prior to the start of surgery. A formal timeout was completed, identifying the operative site and procedure. The prince was identified, with all parties in agreement. We began first with an incision which was localized over the inguinal ligament between the anterior superior iliac spine and the pubic tubercle. It was incised with a 15 blade scalpel, deepened and widened through subcutaneous tissue with Bovie cautery. Hemostasis was obtained down to dissection of the external oblique fibers, which were running diagonal, superior to inferior. These fibers were then opened with a small slit with a 15 blade scalpel and then extended with the Metzenbaum towards the external ring. The wings of the external oblique reflection were then used to identify the spermatic cord where it entered adjacent to the pubic tubercle. The spermatic cord structures in the previous repair were encircled with a Alexis drain and retracted. The previous mesh was also then debrided from the underlying external oblique fascia and the transversalis. It was sent for final pathologic diagnosis and confirmation. With the cord structures and hernia isolated, there was a blunt entry into the hernia sac itself. The contents of the hernia sac was reduced into the surgical wound. There appeared to be a strictured area of small intestines. It was freed and then it was identified that this strictured area was strangulated and nonviable. Decision was made to do a segmental resection of this area. A segment of approximately 8 cm was taken, including the necrotic stricture. The cut ends were then fashioned into a primary stapled anastomosis in standard fashion. JOSE CARLOS 60 stapler was used to transect the segment, LigaSure device used to take the segment off its mesenteric pedicle, followed by approximation of the 2 cut ends using 3-0 silk, and in standard fashion, a stapled anastomosis was performed with a 60 JOSE CARLOS and a TA 60 stapler. Once complete, the anastomosis was checked for integrity and the rent in the mesentery was closed with 3-0 Vicryl. The anastomosis and the remainder of the small intestines was then dropped into the abdomen and reduced with a sponge stick. The peritoneal layer was then approximated with 3-0 Vicryl in running fashion along its length, closing the abdominal cavity. With the abdominal cavity closed, we proceeded then with the remaining scar on the previous repair, which had the mesh debrided from it, was then packed to the transversalis fascia as an overlay layer, reapproximating the spermatic cord structures in anatomic position. A Phasix mesh 4 x 6 inches was then cut to 2 x 6 to allow for additional onlay repair of this area. The onlay was carried through from the pubic tubercle on the lower aspect along the inguinal ligament and then superiorly onto the transversalis fascia. The repair was then carried to its leaf, lateralizing the cord structures to the repair. After this was complete, it was secured in approximately 9 locations using 2-0 Prolene stitch. Once completed, the area was irrigated and then the external oblique fascia was repaired over it. This was done with 2-0 Vicryl in running fashion, recreating the external ring. The skin was then cleaned and closed in layers. Kristie fascia was approximated with 3-0 Vicryl, followed by a deep dermal layer and then finally skin christiano. The patient was awoken from general anesthesia, having tolerated the procedure well. He was stable throughout the procedure. All instrument counts were correct prior to closure of the abdomen. MD ROSE MARIE Hunter/[id number]
[2019-07-24] MEDS: SODIUM CHLORIDE 0.45% 1,000 ML IV SCH ×2 (04:52→18:59)
[2019-07-24] MEDS: ACETAMINOPHEN 1000 MG/100 ML VIAL (NON FORMULARY) IVPB PRN ×3 (07:00→23:39)
[2019-07-24 07:18] LABS: BASO % 0.6 % (0-2.0); EOS % 0.1 % (0-4.5); HEMATOCRIT 37.3 % (35.4-49); HEMOGLOBIN 12.5 GM/dL (11.7-16.9); LYMPH % 6.1 % (8-40); MCH 29.3 pg (25.7-33.7); MCHC 33.5 g/dl (32.0-35.9); MEAN CELL VOLUME 87.7 fl (80-96); MEAN PLT VOLUME 7.4 fl (7.5-11.1); MONO % 10.8 % (3.8-10.2); NEUT % 82.4 % (42.8-82.8); PLATELET COUNT 231 K/MM3 (134-434); RBC 4.26 M/mm3 (4.00-5.60); RDW 15.8 % (11.9-15.9)
[2019-07-24 08:14] LABS: ALBUMIN 2.7 g/dl (3.4-5.0); BILIRUBIN,TOTAL 1.2 mg/dL (0.2-1); BLOOD UREA NITROGEN 55.8 mg/dL (7-18); CALCIUM 8.2 mg/dL (8.5-10.1); POTASSIUM 4.3 mmol/L (3.5-5.1); TOT PROT 6.7 g/dl (6.4-8.2)
[2019-07-24] MEDS ORDERED: PETROLATUM, WHITE 30 GM TUBE TP SCH (10:00)
[2019-07-24] MEDS: HEPARIN NA (PORCINE) 5,000 UNITS/ML 1ML VIAL SQ SCH ×2 (10:54→22:09)
--- NOTE | 2019-07-24 11:48 | CON.CARD ---
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 CT scan confirms SBO with recurrent incarcerted right inguinal hernia for which he underwent repair of recurrent incarcerated/ strangulated right inguinal hernia with mesh, removal of right inguinal hernia mesh, segmental resection of small bowel with primary stapled anatomisis. Since then, he reports relief of nausea, emesis, NGT in place, awaiting flatus, denies chest pain, dyspnea, near or true syncope, palpitations, orthopnea, PND or LE edema. - History Source History Provided By: Patient Limitations to Obtaining History: No Limitations - Past Medical History Cardio/Vascular: Yes: AFIB, CAD, CHF, HTN Musculoskeletal: Yes: Other (pvd/venous statsis b/l) - Past Surgical History Past Surgical History: Yes: CABG, Vein Stripping/Ligation (left leg) - Alcohol/Substance Use Hx Alcohol Use: No - Smoking History Smoking history: Former smoker Have you smoked in the past 12 months: No Aproximately how many cigarettes per day: 1 Home Medications - Allergies Allergies/Adverse Reactions: Allergies Allergy/AdvReac Type Severity Reaction Status Date / Time No Known Allergies Allergy Verified 01/03/17 13:19 - Home Medications Home Medications: Ambulatory Orders Rivaroxaban [Xarelto] 15 mg PO DAILY 09/11/15 Gabapentin [Neurontin -] 100 mg PO TID #90 capsule 05/13/16 Oxycodone HCl/Acetaminophen [Percocet 5-325 mg Tablet] 1 tab PO TID PRN Atorvastatin Ca [Lipitor] 20 mg PO HS 10/10/18 Torsemide 20 mg PO BID 10/10/18 Family Disease History - Family Disease History Family Disease History: Diabetes: Mother Review of Systems - Review of Systems Gastrointestinal: reports: Abdominal Pain, Nausea, Vomiting Vital Signs: Vital Signs Temperature 98.4 F 07/24/19 05:40 Pulse Rate 71 07/24/19 05:40 Respiratory Rate 18 07/24/19 05:40 Blood Pressure 122/59 L 07/24/19 05:40 O2 Sat by Pulse Oximetry (%) 96 07/23/19 21:00 Constitutional: Yes: No Distress, Calm Neck: Yes: Supple Respiratory: Yes: Regular, Diminished, On Nasal O2 Gastrointestinal: Yes: Soft, Hypoactive Bowel Sounds, Other (Post-op) Cardiovascular: Yes: Pulse Irregular JVD: No Carotid Bruit: Yes Murmur: Yes: Systolic Murmur, Grade 1 Edema: Yes Edema: LLE: Trace, RLE: Trace - Other Data Labs, Other Data: CBC, BMP 07/24/19 06:40 07/24/19 06:40 INR, PTT INR 1.23 (0.83-1.09) H 07/22/19 21:05 Afib @ 92 inferolateral [facility] Imaging - Results Chest X-ray: Report Reviewed (NAD) Problem List - Problems (1) CHF (congestive heart failure) Code(s): I50.9 - HEART FAILURE, UNSPECIFIED Qualifiers: Heart failure type: diastolic Heart failure chronicity: chronic Qualified Code(s): I50.32 - Chronic diastolic (congestive) heart failure (2) CKD (chronic kidney disease) Code(s): N18.9 - CHRONIC KIDNEY DISEASE, UNSPECIFIED Qualifiers: Chronic kidney disease stage: stage 3 (moderate) Qualified Code(s): N18.3 - Chronic kidney disease, stage 3 (moderate) (3) Small bowel obstruction Code(s): K56.609 - UNSP INTESTNL OBST, UNSP TO PARTIAL VERSUS COMPLETE OBST (4) Atrial fibrillation Code(s): I48.91 - UNSPECIFIED ATRIAL FIBRILLATION Qualifiers: Atrial fibrillation type: persistent Qualified Code(s): I48.1 - Persistent atrial fibrillation (5) Coronary artery disease Code(s): I25.10 - ATHSCL HEART DISEASE OF [place] CORONARY ARTERY W/O ANG PCTRS Qualifiers: Coronary Disease-Associated Artery/Lesion type: [place] artery [place] vs. transplanted heart: [place] heart Associated angina: without angina Qualified Code(s): I25.10 - Atherosclerotic heart disease of [place] coronary artery without angina pectoris (6) Hyperlipidemia Code(s): E78.5 - HYPERLIPIDEMIA, UNSPECIFIED Qualifiers: Hyperlipidemia type: pure hypercholesterolemia Qualified Code(s): E78.00 - Pure hypercholesterolemia, unspecified; E78.0 - Pure hypercholesterolemia (7) Hypertension Code(s): I10 - ESSENTIAL (PRIMARY) HYPERTENSION Qualifiers: Hypertension type: essential hypertension Qualified Code(s): I10 - Essential (primary) hypertension (8) S/P CABG (coronary artery bypass graft) Code(s): Z95.1 - PRESENCE OF AORTOCORONARY BYPASS GRAFT (9) Chronic anticoagulation Code(s): Z79.01 - ADMINISTRATOR [employer] W[employer] (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 Transition zone - distal ileum within R sided inguinal hernia sac. Calcifications of L inguinal hernia sac. Some fluid in hernia sacs, in peritoneal cavity.) 1. SBO referable to recurrent incarcerated/strangulated right inguinal hernia with mesh s/p repair (removal of right inguinal hernia mesh, segmental resection of small bowel with primary stapled anatomisis) 2. CAD s/p CABG 3. Persistent afib 4. Chronic venous insufficiency 5. Carotid stenosis 6. Gout P:1. Routine post-op care, await recovery of bowel function, judicious hydration 2. Resume Lipitor 20 qd, Xarelto 20 qd, Aldactone 50 qd, Demadex 20 bid once oral intake restored and hemostasis assured 3. DVT prophylaxis, compression therapy 4. Eventual f/u with his archivist Dr. Jairo Aldrich at [facility] [place] 5. Thank you for consultative opportunity
--- NOTE | 2019-07-24 13:37 | PN ---
Progress Note, Physician Chief Complaint: SBO Afib History of Present Illness: Previous notes and events reviewed awake and alert NAD complain of pain to surgical site no reports of BM or passing flatus NGT to LCS minimal output noted in cannister - Current Medication List Current Medications: Active Medications Acetaminophen (Ofirmev Injection -) 1,000 mg IVPB Q6H PRN PRN Reason: FEVER Last Admin: 07/24/19 07:00 Dose: 1,000 mg Heparin Sodium (Porcine) (Heparin -) 5,000 unit SQ BID [facility] Last Admin: 07/24/19 10:54 Dose: Not Given Potassium Chloride/Dextrose/Sod Cl (D5-1/2ns+20 Meq Kcl -) 20 meq in 1,000 mls @ 50 mls/hr IV ASDIR [facility] Last Admin: 07/23/19 18:15 Dose: 0 mls Sodium Chloride (1/2 Normal Saline) 1,000 mls @ 75 mls/hr IV ASDIR [facility] Last Admin: 07/24/19 04:52 Dose: 75 mls/hr - Objective Vital Signs: Vital Signs Temperature 98.4 F 07/24/19 09:00 Pulse Rate 74 07/24/19 09:00 Respiratory Rate 18 07/24/19 09:00 Blood Pressure 125/58 L 07/24/19 09:00 O2 Sat by Pulse Oximetry (%) 96 07/24/19 09:00 Constitutional: Yes: No Distress, Calm Eyes: Yes: Conjunctiva Clear HENT: Yes: Atraumatic Neck: Yes: Thyromegaly Cardiovascular: Yes: Pulse Irregular Respiratory: Yes: Regular, CTA Bilaterally Gastrointestinal: Yes: Normal Bowel Sounds, Soft, Tenderness (diffuse) Genitourinary: Yes: [place] Present (dark colored urine) Musculoskeletal: Yes: Muscle Weakness Extremities: Yes: WNL Wound/Incision: Yes: Dressing Dry and Intact Neurological: Yes: Alert, Oriented Psychiatric: Yes: Alert, Oriented Labs: CBC, BMP 07/24/19 06:40 07/24/19 06:40 INR, PTT INR 1.23 (0.83-1.09) H 07/22/19 21:05 Problem List - Problems (1) CKD (chronic kidney disease) Assessment/Plan: -BUN/Cr 55.8/2.0 -monitor renal function Code(s): N18.9 - CHRONIC KIDNEY DISEASE, UNSPECIFIED Qualifiers: Chronic kidney disease stage: stage 3 (moderate) Qualified Code(s): N18.3 - Chronic kidney disease, stage 3 (moderate) (2) Small bowel obstruction Assessment/Plan: -POD #1 repair of incarcerated strangulated hernia and segmental resection of small bowel -NGT to LCS -Incentive Spirometer -pain control -dvt ppx -initial CT scan showed high grade SBO related to an incarcerated right inguinal hernia involving distal ileal loops, left inguinal hernia without evidence of incarceration Code(s): K56.609 - UNSP INTESTNL OBST, UNSP TO PARTIAL VERSUS COMPLETE OBST (3) Atrial fibrillation Assessment/Plan: -continue Xarelto when resume PO intake -Heparin SQ Code(s): I48.91 - UNSPECIFIED ATRIAL FIBRILLATION Qualifiers: Atrial fibrillation type: persistent Qualified Code(s): I48.1 - Persistent atrial fibrillation (4) Hyperlipidemia Assessment/Plan: -continue Lipitor when resume PO intake Code(s): E78.5 - HYPERLIPIDEMIA, UNSPECIFIED Qualifiers: Hyperlipidemia type: pure hypercholesterolemia Qualified Code(s): E78.00 - Pure hypercholesterolemia, unspecified; E78.0 - Pure hypercholesterolemia Assessment/Plan see problem list
--- NOTE | 2019-07-24 15:13 | PN ---
Progress Note, Physician Chief Complaint: Reccurent incarcerated right inguinal hernia with SBO History of Present Illness: 79 yo male PMH Afib on eliquis, HTN, CABG, CHF presented to the ED with three days of lower abdominal pain, nausea and vomiting. He reports that the pain began on Monday after eating a sandwhich and has been worsening since its onset. 8/10 intensity, no radiation, sharp. He has been stable post operatively. - Current Medication List Current Medications: Active Medications Acetaminophen (Ofirmev Injection -) 1,000 mg IVPB Q6H PRN PRN Reason: FEVER Last Admin: 07/24/19 07:00 Dose: 1,000 mg Heparin Sodium (Porcine) (Heparin -) 5,000 unit SQ BID [facility] Last Admin: 07/24/19 10:54 Dose: Not Given Potassium Chloride/Dextrose/Sod Cl (D5-1/2ns+20 Meq Kcl -) 20 meq in 1,000 mls @ 50 mls/hr IV ASDIR [facility] Last Admin: 07/23/19 18:15 Dose: 0 mls Sodium Chloride (1/2 Normal Saline) 1,000 mls @ 75 mls/hr IV ASDIR [facility] Last Admin: 07/24/19 04:52 Dose: 75 mls/hr - Objective Vital Signs: Vital Signs Temperature 98.4 F 07/24/19 09:00 Pulse Rate 74 07/24/19 09:00 Respiratory Rate 18 07/24/19 09:00 Blood Pressure 125/58 L 07/24/19 09:00 O2 Sat by Pulse Oximetry (%) 96 07/24/19 09:00 Constitutional: Yes: Well Nourished, No Distress, Calm Eyes: Yes: Conjunctiva Clear, EOM Intact HENT: Yes: Atraumatic, Normocephalic Neck: Yes: Supple, Trachea Midline Cardiovascular: Yes: Regular Rate and Rhythm, S1, S2 Respiratory: Yes: Regular, CTA Bilaterally Gastrointestinal: Yes: Normal Bowel Sounds, Soft, Hernia (reducible left inguinal hernia,), Tenderness (incisonal tenderness) ...Rectal Exam: Yes: Deferred Genitourinary: No: CVA Tenderness - Left, CVA Tenderness - Right Breast(s): No: Mass, Skin Changes Musculoskeletal: No: Muscle Pain, Muscle Weakness Extremities: No: Cool, Cyanosis Edema: No Peripheral Pulses WNL: Yes Peripheral Pulses: Left Radial: 2+, Right Radial: 2+, Left Doralis Pedis: 2+, Right Dorsalis Pedis: 2+, Left Femoral: 2+, Right Femoral: 2+ Wound/Incision: Yes: Clean/Dry, Well Approximated, Royce Intact. No: Draining , Reddened Neurological: Yes: Alert, Oriented Psychiatric: Yes: Alert, Oriented Labs: CBC, BMP 07/24/19 06:40 07/24/19 06:40 INR, PTT INR 1.23 (0.83-1.09) H 07/22/19 21:05 Problem List - Problems (1) Incarcerated right inguinal hernia Assessment/Plan: 79 yo male with MMP with recurrent incarcerated right inginal hernia causing SBO and a reducible left inguinal hernia POD#2 s/p repair of right recurrent incarcerated RIH with mesh. clear liquid diet, advance as tolerated Remove NGT Remove Munroe Adequate analgesia OOB and ambulate Physical therapy evaluation for mobilization Will follow Code(s): K40.30 - UNIL INGUINAL HERNIA, W OBST, W/O GANGR, NOT SPCF RECUR (2) CHF (congestive heart failure) Code(s): I50.9 - HEART FAILURE, UNSPECIFIED Qualifiers: Heart failure type: diastolic Heart failure chronicity: chronic Qualified Code(s): I50.32 - Chronic diastolic (congestive) heart failure (3) CKD (chronic kidney disease) Code(s): N18.9 - CHRONIC KIDNEY DISEASE, UNSPECIFIED Qualifiers: Chronic kidney disease stage: stage 3 (moderate) Qualified Code(s): N18.3 - Chronic kidney disease, stage 3 (moderate) (4) Small bowel obstruction Code(s): K56.609 - UNSP INTESTNL OBST, UNSP TO PARTIAL VERSUS COMPLETE OBST (5) Atrial fibrillation Code(s): I48.91 - UNSPECIFIED ATRIAL FIBRILLATION Qualifiers: Atrial fibrillation type: persistent Qualified Code(s): I48.1 - Persistent atrial fibrillation
[2019-07-25] MEDS: SODIUM CHLORIDE 0.45% 1,000 ML IV SCH (06:41)
[2019-07-25 08:40] LABS: HEMATOCRIT 38.4 % (35.4-49); HEMOGLOBIN 12.9 GM/dL (11.7-16.9); MCH 29.5 pg (25.7-33.7); MCHC 33.5 g/dl (32.0-35.9); MEAN CELL VOLUME 88.1 fl (80-96); MEAN PLT VOLUME 7.6 fl (7.5-11.1); PLATELET COUNT 215 K/MM3 (134-434); RBC 4.36 M/mm3 (4.00-5.60); RDW 16.1 % (11.9-15.9); WHITE BLOOD COUNT 9.6 K/mm3 (4.0-10.0)
[2019-07-25 09:01] LABS: ALBUMIN 2.5 g/dl (3.4-5.0); BILIRUBIN,TOTAL 1.4 mg/dL (0.2-1); BLOOD UREA NITROGEN 42.6 mg/dL (7-18); CALCIUM 8.4 mg/dL (8.5-10.1); CREATININE 1.3 mg/dL (0.55-1.3); POTASSIUM 3.9 mmol/L (3.5-5.1); TOT PROT 6.4 g/dl (6.4-8.2)
[2019-07-25] MEDS: ACETAMINOPHEN 1000 MG/100 ML VIAL (NON FORMULARY) IVPB PRN (09:27)
[2019-07-25] MEDS: HEPARIN NA (PORCINE) 5,000 UNITS/ML 1ML VIAL SQ SCH ×2 (09:28→21:43)
--- NOTE | 2019-07-25 10:31 | PN ---
Progress Note, Physician Chief Complaint: SBO Afib History of Present Illness: Previous notes and events reviewed awake and alert NAD complain of pain to surgical site with cough refusing Heparin SQ continues with no report of BM or passing flatus NGT to LCS with 500cc dark colored output - Current Medication List Current Medications: Active Medications Heparin Sodium (Porcine) (Heparin -) 5,000 unit SQ BID [facility] Last Admin: 07/25/19 09:28 Dose: Not Given Potassium Chloride/Dextrose/Sod Cl (D5-1/2ns+20 Meq Kcl -) 20 meq in 1,000 mls @ 50 mls/hr IV ASDIR [facility] Last Admin: 07/23/19 18:15 Dose: 0 mls Sodium Chloride (1/2 Normal Saline) 1,000 mls @ 75 mls/hr IV ASDIR [facility] Last Admin: 07/25/19 06:41 Dose: 75 mls/hr - Objective Vital Signs: Vital Signs Temperature 98.0 F 07/25/19 05:48 Pulse Rate 77 07/25/19 05:48 Respiratory Rate 18 07/25/19 05:48 Blood Pressure 154/80 07/25/19 05:48 O2 Sat by Pulse Oximetry (%) 95 07/25/19 08:46 Constitutional: Yes: No Distress, Calm Eyes: Yes: Conjunctiva Clear HENT: Yes: Atraumatic Cardiovascular: Yes: Pulse Irregular Respiratory: Yes: Regular, CTA Bilaterally, On Nasal O2 Gastrointestinal: Yes: Soft, Hypoactive Bowel Sounds, Tenderness (diffuse) Genitourinary: Yes: [place] Present Musculoskeletal: Yes: Muscle Weakness Extremities: Yes: WNL Edema: No Wound/Incision: Yes: Dressing Dry and Intact Neurological: Yes: Alert, Oriented Psychiatric: Yes: Alert, Oriented Labs: CBC, BMP 07/25/19 08:00 07/25/19 08:00 INR, PTT INR 1.23 (0.83-1.09) H 07/22/19 21:05 Problem List - Problems (1) CKD (chronic kidney disease) Assessment/Plan: -BUN/Cr 42.6/1.3 -monitor renal function -improving Code(s): N18.9 - CHRONIC KIDNEY DISEASE, UNSPECIFIED Qualifiers: Chronic kidney disease stage: stage 3 (moderate) Qualified Code(s): N18.3 - Chronic kidney disease, stage 3 (moderate) (2) Small bowel obstruction Assessment/Plan: -POD #2 repair of incarcerated strangulated hernia and segmental resection of small bowel -NGT to LCS -Incentive Spirometer -pain control -dvt ppx -initial CT scan showed high grade SBO related to an incarcerated right inguinal hernia involving distal ileal loops, left inguinal hernia without evidence of incarceration Code(s): K56.609 - UNSP INTESTNL OBST, UNSP TO PARTIAL VERSUS COMPLETE OBST (3) Atrial fibrillation Assessment/Plan: -continue Xarelto when resume PO intake -since refusing Heparin will consider Lovenox until resumes PO intake Code(s): I48.91 - UNSPECIFIED ATRIAL FIBRILLATION Qualifiers: Atrial fibrillation type: persistent Qualified Code(s): I48.1 - Persistent atrial fibrillation (4) Hyperlipidemia Assessment/Plan: -continue Lipitor when resume PO intake Code(s): E78.5 - HYPERLIPIDEMIA, UNSPECIFIED Qualifiers: Hyperlipidemia type: pure hypercholesterolemia Qualified Code(s): E78.00 - Pure hypercholesterolemia, unspecified; E78.0 - Pure hypercholesterolemia Assessment/Plan see problem list
--- NOTE | 2019-07-25 11:25 | PN ---
Progress Note, Physician History of Present Illness: No nausea, emesis, NGT in place, awaiting flatus, denies chest pain, dyspnea, near or true syncope, palpitations, orthopnea, PND or LE edema. - Current Medication List Current Medications: Active Medications Heparin Sodium (Porcine) (Heparin -) 5,000 unit SQ BID [facility] Last Admin: 07/25/19 09:28 Dose: Not Given Potassium Chloride/Dextrose/Sod Cl (D5-1/2ns+20 Meq Kcl -) 20 meq in 1,000 mls @ 50 mls/hr IV ASDIR [facility] Last Admin: 07/23/19 18:15 Dose: 0 mls Sodium Chloride (1/2 Normal Saline) 1,000 mls @ 75 mls/hr IV ASDIR [facility] Last Admin: 07/25/19 06:41 Dose: 75 mls/hr - Objective Vital Signs: Vital Signs Temperature 98.0 F 07/25/19 05:48 Pulse Rate 77 07/25/19 05:48 Respiratory Rate 18 07/25/19 05:48 Blood Pressure 154/80 07/25/19 05:48 O2 Sat by Pulse Oximetry (%) 95 07/25/19 08:46 Constitutional: Yes: No Distress, Calm HENT: Yes: Other (NGT in place) Neck: Yes: Supple Cardiovascular: Yes: Pulse Irregular Respiratory: Yes: Regular, Diminished Gastrointestinal: Yes: Soft, Hypoactive Bowel Sounds Edema: No Labs: CBC, BMP 07/25/19 08:00 07/25/19 08:00 INR, PTT INR 1.23 (0.83-1.09) H 07/22/19 21:05 Problem List - Problems (1) CHF (congestive heart failure) Code(s): I50.9 - HEART FAILURE, UNSPECIFIED Qualifiers: Heart failure type: diastolic Heart failure chronicity: chronic Qualified Code(s): I50.32 - Chronic diastolic (congestive) heart failure (2) CKD (chronic kidney disease) Code(s): N18.9 - CHRONIC KIDNEY DISEASE, UNSPECIFIED Qualifiers: Chronic kidney disease stage: stage 3 (moderate) Qualified Code(s): N18.3 - Chronic kidney disease, stage 3 (moderate) (3) Small bowel obstruction Code(s): K56.609 - UNSP INTESTNL OBST, UNSP TO PARTIAL VERSUS COMPLETE OBST (4) Atrial fibrillation Code(s): I48.91 - UNSPECIFIED ATRIAL FIBRILLATION Qualifiers: Atrial fibrillation type: persistent Qualified Code(s): I48.1 - Persistent atrial fibrillation (5) Coronary artery disease Code(s): I25.10 - ATHSCL HEART DISEASE OF [place] CORONARY ARTERY W/O ANG PCTRS Qualifiers: Coronary Disease-Associated Artery/Lesion type: [place] artery [place] vs. transplanted heart: [place] heart Associated angina: without angina Qualified Code(s): I25.10 - Atherosclerotic heart disease of [place] coronary artery without angina pectoris (6) Hyperlipidemia Code(s): E78.5 - HYPERLIPIDEMIA, UNSPECIFIED Qualifiers: Hyperlipidemia type: pure hypercholesterolemia Qualified Code(s): E78.00 - Pure hypercholesterolemia, unspecified; E78.0 - Pure hypercholesterolemia (7) Hypertension Code(s): I10 - ESSENTIAL (PRIMARY) HYPERTENSION Qualifiers: Hypertension type: essential hypertension Qualified Code(s): I10 - Essential (primary) hypertension (8) S/P CABG (coronary artery bypass graft) Code(s): Z95.1 - PRESENCE OF AORTOCORONARY BYPASS GRAFT (9) Chronic anticoagulation Code(s): Z79.01 - [employer]RE [employer]UT[employer]INE (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 Transition zone - distal ileum within R sided inguinal hernia sac. Calcifications of L inguinal hernia sac. Some fluid in hernia sacs, in peritoneal cavity.) 1. SBO referable to recurrent incarcerated/strangulated right inguinal hernia with mesh s/p repair (removal of right inguinal hernia mesh, segmental resection of small bowel with primary stapled anatomisis) POD#2 2. CAD s/p CABG 3. Persistent afib 4. Chronic venous insufficiency 5. Carotid stenosis 6. Gout 7. Acute on ckd resolving P:1. Routine post-op care, await recovery of bowel function, judicious hydration 2. Resume Lipitor 20 qd, Xarelto 20 qd, Aldactone 50 qd, but hold Demadex 20 bid once oral intake restored and hemostasis assured 3. DVT prophylaxis, compression therapy 4. Eventual f/u with his upstairs maid Dr. Jairo Aldrich at [facility] [place]
--- NOTE | 2019-07-25 15:12 | PATH ---
Surgical Pathology Report Patient Name: SONDRA WHITTEN [facility]. Rec. #: [id number] /Age/Gender: 1940 (Age: 79) / M Account: [id number] Location: [address] [place] [address] Taken: 07/23/2019 Received: 07/24/2019 Reported: 07/25/2019 Physicians: Brando Sherman M.D. Specimen(s) Received A: SEGMENT OF SMALL BOWEL B: EXPLANTED MESH Clinical History Small bowel obstruction Incarcerated right inguinal hernia, recurrent Final Diagnosis A. SMALL BOWEL SEGMENT, RESECTION: PORTION OF SMALL BOWEL WITH AREA OF MARKED ACUTE AND CHRONIC TRANSMURAL INFLAMMATION WITH ASSOCIATED STRICTURE FORMATION. SURGICAL MARGINS ARE VIABLE. SEPARATE SEGMENT OF SMALL BOWEL MUCOSA WITHOUT SIGNIFICANT PATHOLOGIC FINDINGS (DONUT). B. EXPLANTED MESH, EXPLANTATION: FOREIGN BODY MATERIAL (MESH) WITH ADHERENT FIBROADIPOSE TISSUE WITH ASSOCIATED FOREIGN BODY GIANT CELL REACTION. Electronically Signed yJoti Sprague M.D. Gross Description A. Received in formalin labeled "segment of small bowel" is a segment of undesignated small bowel with stapled margins of resection and surrounding scant cecile-intestinal fat measuring 6 cm in length with a luminal diameter of 3 cm. Focal circumferential stricture is identified, 2 cm from both resection margins. Received separately in the container is an annular portion of bowel consistent with donut measuring 3 x 1.5 x 1 cm. Specification Consultant section of the segment of small bowel, and entire donut are submitted as follows: A1-2- resection margins; A3- stricture; 4- doughnut. B. Received in formalin labeled "explanted mesh" is a portion of irregular mesh with adherent soft tissue measuring 4 x 4 x 1.5 cm. Specification Consultant section is submitted in one cassette. MLSZ/07/24/2019 sanml/07/24/2019
[2019-07-25] MEDS ORDERED: ONDANSETRON 4 MG/2 ML VIAL IVPUSH PRN (16:00)
[2019-07-25] MEDS: D5-1/2NS+20 MEQ KCL - 20 MEQ/1,000 ML INFUS.BAG IV SCH ×2 (16:40)
[2019-07-25] MEDS: CEFAZOLIN 2 GM/D5W 2 GM/50 ML ML IVPB SCH (17:26)
[2019-07-26] MEDS: CEFAZOLIN 2 GM/D5W 2 GM/50 ML ML IVPB SCH ×2 (01:03→09:09)
[2019-07-26] MEDS: MORPHINE SULFATE 2 MG/ML VIAL IVPUSH PRN ×2 (04:41→18:29)
[2019-07-26] MEDS: D5-1/2NS+20 MEQ KCL - 20 MEQ/1,000 ML INFUS.BAG IV SCH (04:48)
[2019-07-26] MEDS ORDERED: PT OWN MED DRAWER 7, Y5N ONE (09:02)
[2019-07-26] MEDS: HEPARIN NA (PORCINE) 5,000 UNITS/ML 1ML VIAL SQ SCH (09:08)
[2019-07-26 09:33] LABS: ALBUMIN 2.4 g/dl (3.4-5.0); BILIRUBIN,TOTAL 0.9 mg/dL (0.2-1); BLOOD UREA NITROGEN 35.6 mg/dL (7-18); CALCIUM 8.4 mg/dL (8.5-10.1); CREATININE 1.3 mg/dL (0.55-1.3); HEMATOCRIT 37.7 % (35.4-49); HEMOGLOBIN 12.4 GM/dL (11.7-16.9); MCH 28.9 pg (25.7-33.7); MCHC 32.9 g/dl (32.0-35.9); MEAN PLT VOLUME 7.8 fl (7.5-11.1); PLATELET COUNT 216 K/MM3 (134-434); RBC 4.28 M/mm3 (4.00-5.60); RDW 15.7 % (11.9-15.9); TOT PROT 6.1 g/dl (6.4-8.2); WHITE BLOOD COUNT 11.4 K/mm3 (4.0-10.0)
--- NOTE | 2019-07-26 11:25 | PN ---
Progress Note, Physician History of Present Illness: NGT d/boby, having BM and tolerating clear liquid diet, denies chest pain, dyspnea, near or true syncope, palpitations, orthopnea, PND or LE edema. - Current Medication List Current Medications: Active Medications Heparin Sodium (Porcine) (Heparin -) 5,000 unit SQ BID ENDER Last Admin: 07/26/19 09:08 Dose: Not Given Potassium Chloride/Dextrose/Sod Cl (D5-1/2ns+20 Meq Kcl -) 20 meq in 1,000 mls @ 50 mls/hr IV ASDIR ENDER Last Admin: 07/25/19 16:40 Dose: Not Given Cefazolin Sodium/Dextrose (Ancef 2 Gm Premixed Ivpb -) 2 gm in 50 mls @ 100 mls /hr IVPB Q8H-IV ENDER Stop: 07/26/19 17:59 Last Admin: 07/26/19 09:09 Dose: 100 mls/hr Potassium Chloride/Dextrose/Sod Cl (D5-1/2ns+20 Meq Kcl -) 20 meq in 1,000 mls @ 125 mls/hr IV ASDIR ENDER Last Admin: 07/26/19 04:48 Dose: 125 mls/hr Morphine Sulfate (Morphine Sulfate) 4 mg IVPUSH Q4H PRN PRN Reason: PAIN LEVEL 7 - 10 Last Admin: 07/26/19 04:41 Dose: 4 mg Ondansetron HCl (Zofran Injection) 4 mg IVPUSH Q8H PRN PRN Reason: NAUSEA - Objective Vital Signs: Vital Signs Temperature 98.4 F 07/26/19 05:33 Pulse Rate 92 H 07/26/19 05:33 Respiratory Rate 20 07/26/19 05:33 Blood Pressure 162/84 07/26/19 05:33 O2 Sat by Pulse Oximetry (%) 96 07/25/19 21:00 Constitutional: Yes: No Distress, Calm Neck: Yes: Supple Cardiovascular: Yes: Pulse Irregular Respiratory: Yes: Regular, Diminished Gastrointestinal: Yes: Normal Bowel Sounds, Soft Edema: No Integumentary: Yes: Venous Stasis Changes Labs: CBC, BMP 07/26/19 07:42 07/26/19 07:42 INR, PTT INR 1.23 (0.83-1.09) H 07/22/19 21:05 Problem List - Problems (1) CHF (congestive heart failure) Code(s): I50.9 - HEART FAILURE, UNSPECIFIED Qualifiers: Heart failure type: diastolic Heart failure chronicity: chronic Qualified Code(s): I50.32 - Chronic diastolic (congestive) heart failure (2) CKD (chronic kidney disease) Code(s): N18.9 - CHRONIC KIDNEY DISEASE, UNSPECIFIED Qualifiers: Chronic kidney disease stage: stage 3 (moderate) Qualified Code(s): N18.3 - Chronic kidney disease, stage 3 (moderate) (3) Small bowel obstruction Code(s): K56.609 - UNSP INTESTNL OBST, UNSP TO PARTIAL VERSUS COMPLETE OBST (4) Atrial fibrillation Code(s): I48.91 - UNSPECIFIED ATRIAL FIBRILLATION Qualifiers: Atrial fibrillation type: persistent Qualified Code(s): I48.1 - Persistent atrial fibrillation (5) Coronary artery disease Code(s): I25.10 - ATHSCL HEART DISEASE OF [place] CORONARY ARTERY W/O ANG PCTRS Qualifiers: Coronary Disease-Associated Artery/Lesion type: [place] artery [place] vs. transplanted heart: [place] heart Associated angina: without angina Qualified Code(s): I25.10 - Atherosclerotic heart disease of [place] coronary artery without angina pectoris (6) Hyperlipidemia Code(s): E78.5 - HYPERLIPIDEMIA, UNSPECIFIED Qualifiers: Hyperlipidemia type: pure hypercholesterolemia Qualified Code(s): E78.00 - Pure hypercholesterolemia, unspecified; E78.0 - Pure hypercholesterolemia (7) Hypertension Code(s): I10 - ESSENTIAL (PRIMARY) HYPERTENSION Qualifiers: Hypertension type: essential hypertension Qualified Code(s): I10 - Essential (primary) hypertension (8) S/P CABG (coronary artery bypass graft) Code(s): Z95.1 - PRESENCE OF AORTOCORONARY BYPASS GRAFT (9) Chronic anticoagulation Code(s): Z79.01 - [employer] (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 Transition zone - distal ileum within R sided inguinal hernia sac. Calcifications of L inguinal hernia sac. Some fluid in hernia sacs, in peritoneal cavity.) 1. SBO referable to recurrent incarcerated/strangulated right inguinal hernia with mesh s/p repair (removal of right inguinal hernia mesh, segmental resection of small bowel with primary stapled anatomisis) POD#3 2. CAD s/p CABG 3. Persistent afib 4. Chronic venous insufficiency 5. Carotid stenosis 6. Gout 7. Acute on ckd resolving to baseline P:1. Routine post-op care, advance diet as tolerated, d/c hydration 2. Resume Allopurinol 100 qd, Lipitor 20 qd, Xarelto 20 qd, Aldactone 25 qd, but hold Demadex 20 bid as LE edema resolved and hemostasis assured 3. DVT prophylaxis, compression therapy 4. Eventual f/u with his draw frame tender Dr. Jairo Aldrich at [facility]
--- NOTE | 2019-07-26 15:19 | DS ---
Physical Examination Vital Signs: Vital Signs Temperature 98.2 F 07/26/19 14:59 Pulse Rate 86 07/26/19 14:59 Respiratory Rate 18 07/26/19 14:59 Blood Pressure 142/73 07/26/19 14:59 O2 Sat by Pulse Oximetry (%) 95 07/26/19 10:00 Constitutional: Yes: Calm Cardiovascular: Yes: Regular Rate and Rhythm, S1, S2 Respiratory: Yes: CTA Bilaterally Gastrointestinal: Yes: Normal Bowel Sounds, Soft Neurological: Yes: Alert Labs: CBC, BMP 07/26/19 07:42 07/26/19 07:42 Discharge Summary Reason For Visit: SMALL BOWEL OBSTRUCTION Current Active Problems CHF (congestive heart failure) (Acute) CKD (chronic kidney disease) (Acute) Chronic anticoagulation (Acute) Incarcerated right inguinal hernia (Acute) Small bowel obstruction (Acute) Hospital Course: Chief Complaint: came in for palpitations History of Present Illness: 74 yo M with a hx of HTN (on HCTZ and lisinopril), HLD, and BPH presents to the emergency department with referral for tachycardia at Dr. Sherman's office. Per the patient, he was asymptomatic and was getting a routine check up at the office when it was noted he had tachycardia. The patient while in our emergency department stated he continued to have no symptoms. Denies the following: palpitations, chest pain, SOB, lightheadedness, dizziness, headache, visual disturbance, previous cardiax hx, new medications, dysuria, hematuria, and leg pain/swelling. Allergies: NKDA' admitted for surgery right incarcerated hernia s/p surgery now to go home CT scan high grade SBO with incarcerated hernia Condition: Stable - Instructions Diet, Activity, Other Instructions: Postoperative instructions: You had a right inguinal hernia repair with segmental ressection of small bowel on 07/24/[address] Xavier Barone of [facility]. Activity: Resume your usual activities gradually, but no heavy exertion or lifting more than 10-15 pounds for 4-6 weeks. Remove dressings 48 hours after surgery, if they are not already off. You may shower daily starting then, just pat the incision areas dry. No bath or swimming until skin incisions have healed. [place] should not need to be recovered with any dressings, unless you have been told otherwise. Eat lightly at first, but advance to your usual diet as tolerated. Pain: For pain, you may use and alternate Tylenol (acetaminophen) 1-2 pills and/ or ibuprofen 200 mg (1-3 pills) every 6 hours each as needed; this means that you can take one OR the other at 3-hour intervals. If you are prescribed a Tylenol/narcotic combination for severe pain, use it instead of plain Tylenol as needed and switch back when your pain starts decreasing. Do not take more than 4000 mg of acetaminophen in a day. Take medications as prescribed or indicated on the labeling. Follow-up: Call Dr. Barone' office at [phone] to make your postop appointment (Monday in approximately 2 weeks after surgery as advised). Clinic is held in the [facility] on the first floor of [facility]. Call the office if you have: * increasing pain not responsive to pain medication * fever of 101F or higher * vomiting * unusual or increasing bleeding or drainage from wounds * increasing redness or swelling at wound sites * inability to urinate Also, see your primary medical doctor within 1-2 weeks. Referrals: Brando Sherman MD [Staff Physician] - Disposition: HOME - Home Medications Comprehensive Discharge Medication List: Ambulatory Orders Rivaroxaban [Xarelto] 15 mg PO DAILY 09/11/15 Gabapentin [Neurontin -] 100 mg PO TID #90 capsule 05/13/16 Oxycodone HCl/Acetaminophen [Percocet 5-325 mg Tablet] 1 tab PO TID PRN Atorvastatin Ca [Lipitor] 20 mg PO HS 10/10/18 Torsemide 20 mg PO BID 10/10/18
--- NOTE | 2019-07-26 16:52 | PN ---
Progress Note (short form) - Note Progress Note: dc home if tolerates diet with VNS and home care
[2019-07-26] MEDS: RIVAROXABAN 20 MG TABLET PO SCH (17:18)
[2019-07-26] MEDS: ATORVASTATIN CA 20 MG TABLET (FP) PO SCH (21:39)
[2019-07-27 07:07] LABS: BASO % 0.8 % (0-2.0); EOS % 4.3 % (0-4.5); HEMATOCRIT 37.2 % (35.4-49); HEMOGLOBIN 12.5 GM/dL (11.7-16.9); LYMPH % 9.7 % (8-40); MCH 29.4 pg (25.7-33.7); MCHC 33.5 g/dl (32.0-35.9); MEAN CELL VOLUME 87.8 fl (80-96); MEAN PLT VOLUME 7.4 fl (7.5-11.1); MONO % 8.9 % (3.8-10.2); NEUT % 76.3 % (42.8-82.8); PLATELET COUNT 207 K/MM3 (134-434); RBC 4.24 M/mm3 (4.00-5.60); WHITE BLOOD COUNT 9.3 K/mm3 (4.0-10.0)
[2019-07-27] MEDS: SPIRONOLACTONE 25 MG TABLET (FP) PO SCH (09:42)
[2019-07-27] MEDS: ALLOPURINOL 100 MG TABLET (FP) PO SCH (09:42)
--- NOTE | 2019-07-27 11:31 | PN ---
Progress Note, Physician Chief Complaint: SBO History of Present Illness: 79 year old male s/p hernia mesh repair of incarcerated hernia with mesh, c/o pain 9/10, denies abdominal pain at rest. In no distress. pt states he is tolerating his diet. Denies Nausea and Vomiting. Feels frustrated, doesn't want to be in the hospital. - Current Medication List Current Medications: Active Medications Allopurinol (Zyloprim -) 100 mg PO DAILY [facility] Last Admin: 07/27/19 09:42 Dose: 100 mg Atorvastatin Calcium (Lipitor -) 20 mg PO HS [facility] Last Admin: 07/26/19 21:39 Dose: 20 mg Morphine Sulfate (Morphine Sulfate) 4 mg IVPUSH Q4H PRN PRN Reason: PAIN LEVEL 7 - 10 Last Admin: 07/26/19 18:29 Dose: 4 mg Ondansetron HCl (Zofran Injection) 4 mg IVPUSH Q8H PRN PRN Reason: NAUSEA Rivaroxaban (Xarelto) 20 mg PO DAILY@1800 [facility] Last Admin: 07/26/19 17:18 Dose: 20 mg Spironolactone (Aldactone -) 25 mg PO DAILY [facility] Last Admin: 07/27/19 09:42 Dose: 25 mg - Objective Vital Signs: Vital Signs Temperature 98.0 F 07/27/19 10:00 Pulse Rate 88 07/27/19 10:00 Respiratory Rate 18 07/27/19 10:00 Blood Pressure 130/68 07/27/19 10:00 O2 Sat by Pulse Oximetry (%) 96 07/27/19 08:38 Constitutional: Yes: No Distress, Calm, Anxious, Other (frustrated) Cardiovascular: Yes: Regular Rate and Rhythm Respiratory: Yes: Regular Gastrointestinal: Yes: Normal Bowel Sounds, Hypoactive Bowel Sounds, Tenderness (RUQ/ RLQ) Musculoskeletal: Yes: Muscle Weakness Extremities: Yes: WNL Edema: No Peripheral Pulses WNL: Yes Wound/Incision: Yes: Dressing Dry and Intact Neurological: Yes: Alert, Oriented Psychiatric: Yes: Alert, Oriented Labs: CBC, BMP 07/27/19 06:48 07/26/19 07:42 INR, PTT INR 1.23 (0.83-1.09) H 07/22/19 21:05 Problem List - Problems (1) Small bowel obstruction Assessment/Plan: -CT Abd: notable for small bowel obstruction - R inguinal hernia with dilated bowel entering, collapsed bowel exiting. Transition zone - distal ileum within R sided inguinal hernia sac. Calcifications of L inguinal hernia sac. Some fluid in hernia sacs, in peritoneal cavity. -Seen by general surgery -s/p repair of recurrent incarcerated/ strangulated right inguinal hernia with mesh, removal of right inguinal hernia mesh, segmental resection of small bowel with primary stapled anastomosis -Pain management -tolerating diet Code(s): K56.609 - UNSP INTESTNL OBST, UNSP TO PARTIAL VERSUS COMPLETE OBST (2) Atrial fibrillation Assessment/Plan: -AC Xarelto resumed -rate controlled Code(s): I48.91 - UNSPECIFIED ATRIAL FIBRILLATION Qualifiers: Atrial fibrillation type: persistent Qualified Code(s): I48.1 - Persistent atrial fibrillation (3) Venous (peripheral) insufficiency Assessment/Plan: -Continue with Javier bandage dressing daily -BLLE elevation Code(s): I87.2 - VENOUS INSUFFICIENCY (CHRONIC) (PERIPHERAL) Assessment/Plan Pt lives by himself, has walked with PT POD1 25 ft unsteady gait. Likely not a safe discharge even with home care services. Will reassess physical condition after pain is better controlled and patient is able to do PT. Pt may need SNF
[2019-07-27] MEDS: oxyCODONE HCL 5 MG TABLET PO PRN (12:08)
[2019-07-27] MEDS ORDERED: SODIUM CHLORIDE 1,000 ML IV SCH (12:15)
[2019-07-27] MEDS: RIVAROXABAN 20 MG TABLET PO SCH (17:33)
[2019-07-27] MEDS: ATORVASTATIN CA 20 MG TABLET (FP) PO SCH (21:27)
[2019-07-28] MEDS: ALLOPURINOL 100 MG TABLET (FP) PO SCH (10:14)
[2019-07-28] MEDS: SPIRONOLACTONE 25 MG TABLET (FP) PO SCH (10:14)
[2019-07-28] MEDS: DOCUSATE SODIUM 100 MG CAPSULE (FP) PO SCH (10:14)
[2019-07-28] MEDS: ACETAMINOPHEN 325 MG TABLET (FP) PO PRN (10:17)
[2019-07-28] MEDS: oxyCODONE HCL 5 MG TABLET PO PRN ×2 (10:18→17:11)
--- NOTE | 2019-07-28 11:34 | PN ---
Progress Note, Physician Chief Complaint: SBO History of Present Illness: 79 year old male s/p hernia mesh repair of incarcerated hernia with mesh, c/o pain 9/10, denies abdominal pain at rest. In no distress. pt states he is tolerating his diet. Denies Nausea and Vomiting. Feels frustrated, doesn't want to be in the hospital. Urine is more clear today. Encouraged PO fluids Refused PT, encouraged to get out bed. PT to see pt again in the afternoon - Current Medication List Current Medications: Active Medications Acetaminophen (Tylenol -) 650 mg PO Q4H PRN PRN Reason: FEVER Last Admin: 07/28/19 10:17 Dose: 650 mg Allopurinol (Zyloprim -) 100 mg PO DAILY [facility] Last Admin: 07/28/19 10:14 Dose: 100 mg Atorvastatin Calcium (Lipitor -) 20 mg PO HS [facility] Last Admin: 07/27/19 21:27 Dose: 20 mg Docusate Sodium (Colace -) 100 mg PO DAILY [facility] Last Admin: 07/28/19 10:14 Dose: 100 mg Sodium Chloride (Normal Saline -) 1,000 mls @ 50 mls/hr IV ASDIR [facility] Stop: 07/28/19 12:10 Last Admin: 07/27/19 12:16 Dose: 50 mls/hr Ondansetron HCl (Zofran Injection) 4 mg IVPUSH Q8H PRN PRN Reason: NAUSEA Oxycodone HCl (Roxicodone -) 5 mg PO Q6H PRN PRN Reason: PAIN LEVEL 7 - 10 Last Admin: 07/28/19 10:18 Dose: 5 mg Rivaroxaban (Xarelto) 20 mg PO DAILY@1800 [facility] Last Admin: 07/27/19 17:33 Dose: 20 mg Spironolactone (Aldactone -) 25 mg PO DAILY [facility] Last Admin: 07/28/19 10:14 Dose: 25 mg Tramadol HCl (Ultram -) 50 mg PO Q8H PRN PRN Reason: PAIN LEVEL 4 - 6 - Objective Vital Signs: Vital Signs Temperature 97.6 F 07/28/19 08:50 Pulse Rate 96 H 07/28/19 08:50 Respiratory Rate 18 07/28/19 09:00 Blood Pressure 132/82 07/28/19 08:50 O2 Sat by Pulse Oximetry (%) 96 07/28/19 09:00 Constitutional: Yes: Well Nourished, No Distress, Calm Cardiovascular: Yes: Regular Rate and Rhythm Respiratory: Yes: Regular Gastrointestinal: Yes: Normal Bowel Sounds, Soft, Abdomen, Obese, Tenderness ( incisional) Genitourinary: Yes: WNL Musculoskeletal: Yes: Muscle Weakness Extremities: Yes: WNL Edema: No Peripheral Pulses WNL: Yes Neurological: Yes: Alert, Oriented Psychiatric: Yes: Alert, Oriented Labs: CBC, BMP 07/27/19 06:48 07/26/19 07:42 INR, PTT INR 1.23 (0.83-1.09) H 07/22/19 21:05 Problem List - Problems (1) Small bowel obstruction Assessment/Plan: -CT Abd: notable for small bowel obstruction - R inguinal hernia with dilated bowel entering, collapsed bowel exiting. Transition zone - distal ileum within R sided inguinal hernia sac. Calcifications of L inguinal hernia sac. Some fluid in hernia sacs, in peritoneal cavity. -Seen by general surgery -s/p repair of recurrent incarcerated/ strangulated right inguinal hernia with mesh, removal of right inguinal hernia mesh, segmental resection of small bowel with primary stapled anastomosis -Pain management -tolerating diet -Encourage PO fluids -Continue IVF Code(s): K56.609 - UNSP INTESTNL OBST, UNSP TO PARTIAL VERSUS COMPLETE OBST (2) Atrial fibrillation Assessment/Plan: -AC Xarelto resumed -rate controlled Code(s): I48.91 - UNSPECIFIED ATRIAL FIBRILLATION Qualifiers: Atrial fibrillation type: persistent Qualified Code(s): I48.1 - Persistent atrial fibrillation (3) Venous (peripheral) insufficiency Assessment/Plan: -Continue with Javier bandage dressing daily -BLLE elevation Code(s): I87.2 - VENOUS INSUFFICIENCY (CHRONIC) (PERIPHERAL) Assessment/Plan Pt lives by himself, has walked with PT POD1 25 ft unsteady gait. Likely not a safe discharge even with home care services. Will reassess physical condition after pain is better controlled and patient is able to do PT. Pt may need SNF
--- NOTE | 2019-07-28 12:43 | PN ---
Progress Note, Physician Chief Complaint: Reccurent incarcerated right inguinal hernia with SBO History of Present Illness: 79 yo male PMH Afib on eliquis, HTN, CABG, CHF presented to the ED with three days of lower abdominal pain, nausea and vomiting. He reports that the pain began on Monday after eating a sandwhich and has been worsening since its onset. 8/10 intensity, no radiation, sharp. He has been stable post operatively and has resumed GI fucntion - Current Medication List Current Medications: Active Medications Acetaminophen (Tylenol -) 650 mg PO Q4H PRN PRN Reason: FEVER Last Admin: 07/28/19 10:17 Dose: 650 mg Allopurinol (Zyloprim -) 100 mg PO DAILY [facility] Last Admin: 07/28/19 10:14 Dose: 100 mg Atorvastatin Calcium (Lipitor -) 20 mg PO HS [facility] Last Admin: 07/27/19 21:27 Dose: 20 mg Docusate Sodium (Colace -) 100 mg PO DAILY [facility] Last Admin: 07/28/19 10:14 Dose: 100 mg Ondansetron HCl (Zofran Injection) 4 mg IVPUSH Q8H PRN PRN Reason: NAUSEA Oxycodone HCl (Roxicodone -) 5 mg PO Q6H PRN PRN Reason: PAIN LEVEL 7 - 10 Last Admin: 07/28/19 10:18 Dose: 5 mg Rivaroxaban (Xarelto) 20 mg PO DAILY@1800 [facility] Last Admin: 07/27/19 17:33 Dose: 20 mg Spironolactone (Aldactone -) 25 mg PO DAILY [facility] Last Admin: 07/28/19 10:14 Dose: 25 mg Tramadol HCl (Ultram -) 50 mg PO Q8H PRN PRN Reason: PAIN LEVEL 4 - 6 - Objective Vital Signs: Vital Signs Temperature 97.6 F 07/28/19 08:50 Pulse Rate 96 H 07/28/19 08:50 Respiratory Rate 18 07/28/19 09:00 Blood Pressure 132/82 07/28/19 08:50 O2 Sat by Pulse Oximetry (%) 96 07/28/19 09:00 Vital Signs Period Temp Pulse Resp BP Sys/Blas Pulse Ox Last 24 Hr 97.6 F-98.9 F 81-96 18-18 128-146/64-82 96-96 Intake & Output 07/27/19 07/28/19 07/28/19 23:59 07:59 15:59 Intake Total 300 600 220 Balance 300 600 220 Weight 221 lb 5 oz Intake: IV 600 Normal Saline - 1,000 ml 600 @ 50 mls/hr IV ASDIR ENDER Rx#:[id number] Oral 300 220 Other: Voiding Method Urinal Urinal # Unmeasured Voids [place] 1 Void 2 Bowel Movement Yes Yes # Bowel Movements 1 Weight Measurement Method Built in [facility] Constitutional: Yes: Well Nourished, No Distress, Calm Eyes: Yes: Conjunctiva Clear, EOM Intact HENT: Yes: Atraumatic, Normocephalic Neck: Yes: Supple, Trachea Midline Cardiovascular: Yes: Regular Rate and Rhythm, S1, S2 Respiratory: Yes: Regular, CTA Bilaterally Gastrointestinal: Yes: Normal Bowel Sounds, Soft, Distention, Tenderness (right inguinal incision) ...Rectal Exam: Yes: Deferred Genitourinary: No: CVA Tenderness - Left, CVA Tenderness - Right Breast(s): No: Mass, Skin Changes Musculoskeletal: No: Muscle Pain, Muscle Weakness Extremities: No: Cool, Cyanosis Edema: No Peripheral Pulses WNL: Yes Peripheral Pulses: Left Radial: 2+, Right Radial: 2+, Left Doralis Pedis: 2+, Right Dorsalis Pedis: 2+, Left Femoral: 2+, Right Femoral: 2+ Integumentary: No: Jaundice Wound/Incision: Yes: Clean/Dry, Well Approximated, [place] Intact, Open to air Neurological: Yes: Alert Psychiatric: Yes: Alert, Oriented Labs: CBC, BMP 07/27/19 06:48 07/26/19 07:42 INR, PTT INR 1.23 (0.83-1.09) H 07/22/19 21:05 Problem List - Problems (1) Incarcerated right inguinal hernia Assessment/Plan: 79 yo male with MMP with recurrent incarcerated right inginal hernia causing SBO and a reducible left inguinal hernia POD#5 s/p repair of right recurrent incarcerated RIH with mesh. Tolerating his diet complaining of team. Diet as tolerated Adequate analgesia OOB and ambulate Physical therapy evaluation for mobilization discharge at discretion of primary team Code(s): K40.30 - UNIL INGUINAL HERNIA, W OBST, W/O GANGR, NOT SPCF RECUR (2) CHF (congestive heart failure) Code(s): I50.9 - HEART FAILURE, UNSPECIFIED Qualifiers: Heart failure type: diastolic Heart failure chronicity: chronic Qualified Code(s): I50.32 - Chronic diastolic (congestive) heart failure (3) CKD (chronic kidney disease) Code(s): N18.9 - CHRONIC KIDNEY DISEASE, UNSPECIFIED Qualifiers: Chronic kidney disease stage: stage 3 (moderate) Qualified Code(s): N18.3 - Chronic kidney disease, stage 3 (moderate) (4) Small bowel obstruction Code(s): K56.609 - UNSP INTESTNL OBST, UNSP TO PARTIAL VERSUS COMPLETE OBST (5) Atrial fibrillation Code(s): I48.91 - UNSPECIFIED ATRIAL FIBRILLATION Qualifiers: Atrial fibrillation type: persistent Qualified Code(s): I48.1 - Persistent atrial fibrillation
[2019-07-28] MEDS: RIVAROXABAN 20 MG TABLET PO SCH (17:11)
--- NOTE | 2019-07-28 18:10 | PN ---
Progress Note, Physician History of Present Illness: Having BM, reports nausea w/o emesis, denies chest pain, dyspnea, near or true syncope, palpitations, orthopnea, PND or LE edema. Awaiting PT and d/c planning. - Current Medication List Current Medications: Active Medications Acetaminophen (Tylenol -) 650 mg PO Q4H PRN PRN Reason: FEVER Last Admin: 07/28/19 10:17 Dose: 650 mg Allopurinol (Zyloprim -) 100 mg PO DAILY [facility] Last Admin: 07/28/19 10:14 Dose: 100 mg Atorvastatin Calcium (Lipitor -) 20 mg PO HS [facility] Last Admin: 07/27/19 21:27 Dose: 20 mg Docusate Sodium (Colace -) 100 mg PO DAILY [facility] Last Admin: 07/28/19 10:14 Dose: 100 mg Ondansetron HCl (Zofran Injection) 4 mg IVPUSH Q8H PRN PRN Reason: NAUSEA Oxycodone HCl (Roxicodone -) 5 mg PO Q6H PRN PRN Reason: PAIN LEVEL 7 - 10 Last Admin: 07/28/19 17:11 Dose: 5 mg Rivaroxaban (Xarelto) 20 mg PO DAILY@1800 [facility] Last Admin: 07/28/19 17:11 Dose: 20 mg Spironolactone (Aldactone -) 25 mg PO DAILY [facility] Last Admin: 07/28/19 10:14 Dose: 25 mg Tramadol HCl (Ultram -) 50 mg PO Q8H PRN PRN Reason: PAIN LEVEL 4 - 6 - Objective Vital Signs: Vital Signs Temperature 97.6 F 07/28/19 08:50 Pulse Rate 96 H 07/28/19 08:50 Respiratory Rate 18 07/28/19 09:00 Blood Pressure 132/82 07/28/19 08:50 O2 Sat by Pulse Oximetry (%) 96 07/28/19 09:00 Constitutional: Yes: No Distress, Calm Neck: Yes: Supple Cardiovascular: Yes: Pulse Irregular Respiratory: Yes: Regular, Diminished Gastrointestinal: Yes: Normal Bowel Sounds, Soft Edema: No Integumentary: Yes: Venous Stasis Changes Labs: CBC, BMP 07/27/19 06:48 07/26/19 07:42 INR, PTT INR 1.23 (0.83-1.09) H 07/22/19 21:05 Problem List - Problems (1) CHF (congestive heart failure) Code(s): I50.9 - HEART FAILURE, UNSPECIFIED Qualifiers: Heart failure type: diastolic Heart failure chronicity: chronic Qualified Code(s): I50.32 - Chronic diastolic (congestive) heart failure (2) CKD (chronic kidney disease) Code(s): N18.9 - CHRONIC KIDNEY DISEASE, UNSPECIFIED Qualifiers: Chronic kidney disease stage: stage 3 (moderate) Qualified Code(s): N18.3 - Chronic kidney disease, stage 3 (moderate) (3) Small bowel obstruction Code(s): K56.609 - UNSP INTESTNL OBST, UNSP TO PARTIAL VERSUS COMPLETE OBST (4) Atrial fibrillation Code(s): I48.91 - UNSPECIFIED ATRIAL FIBRILLATION Qualifiers: Atrial fibrillation type: persistent Qualified Code(s): I48.1 - Persistent atrial fibrillation (5) Coronary artery disease Code(s): I25.10 - ATHSCL HEART DISEASE OF [place] CORONARY ARTERY W/O ANG PCTRS Qualifiers: Coronary Disease-Associated Artery/Lesion type: [place] artery [place] vs. transplanted heart: [place] heart Associated angina: without angina Qualified Code(s): I25.10 - Atherosclerotic heart disease of 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 Transition zone - distal ileum within R sided inguinal hernia sac. Calcifications of L inguinal hernia sac. Some fluid in hernia sacs, in peritoneal cavity.) 1. SBO referable to recurrent incarcerated/strangulated right inguinal hernia with mesh s/p repair (removal of right inguinal hernia mesh, segmental resection of small bowel with primary stapled anatomisis) POD#5 2. CAD s/p CABG 3. Persistent afib 4. Chronic venous insufficiency 5. Carotid stenosis 6. Gout 7. Acute on ckd resolving to baseline P:1. Routine post-op care, diet as tolerated 2. Continue Allopurinol 100 qd, Lipitor 20 qd, Xarelto 20 qd, Aldactone 25 qd, add Toprol XL 25 qd for rate-control, but hold Demadex 20 bid as LE edema has resolved 3. DVT prophylaxis, compression therapy 4. 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 Jairo Aldrich at [facility] upon d/c
[2019-07-28] MEDS: metoPROLOL SUCCINATE 25 MG TAB.SR.24H (FP) PO SCH (18:24)
[2019-07-28] MEDS: ATORVASTATIN CA 20 MG TABLET (FP) PO SCH (21:54)
[2019-07-28] MEDS: traMADol HCL 50 MG TABLET PO PRN (21:55)
[2019-07-29] MEDS: ACETAMINOPHEN 325 MG TABLET (FP) PO PRN (09:02)
[2019-07-29] MEDS: SPIRONOLACTONE 25 MG TABLET (FP) PO SCH (09:02)
[2019-07-29] MEDS: oxyCODONE HCL 5 MG TABLET PO PRN ×2 (09:02→21:05)
[2019-07-29] MEDS: ALLOPURINOL 100 MG TABLET (FP) PO SCH (09:03)
[2019-07-29] MEDS: metoPROLOL SUCCINATE 25 MG TAB.SR.24H (FP) PO SCH (09:03)
[2019-07-29] MEDS: DOCUSATE SODIUM 100 MG CAPSULE (FP) PO SCH (09:04)
--- NOTE | 2019-07-29 10:54 | PN ---
Progress Note, Physician Chief Complaint: patient seen and examined in bed - Current Medication List Current Medications: Active Medications Acetaminophen (Tylenol -) 650 mg PO Q4H PRN PRN Reason: FEVER Last Admin: 07/29/19 09:02 Dose: 650 mg Allopurinol (Zyloprim -) 100 mg PO DAILY [facility] Last Admin: 07/29/19 09:03 Dose: 100 mg Atorvastatin Calcium (Lipitor -) 20 mg PO HS [facility] Last Admin: 07/28/19 21:54 Dose: 20 mg Docusate Sodium (Colace -) 100 mg PO DAILY [facility] Last Admin: 07/29/19 09:04 Dose: Not Given Metoprolol Succinate (Toprol Xl -) 25 mg PO DAILY [facility] Last Admin: 07/29/19 09:03 Dose: 25 mg Ondansetron HCl (Zofran Injection) 4 mg IVPUSH Q8H PRN PRN Reason: NAUSEA Oxycodone HCl (Roxicodone -) 5 mg PO Q6H PRN PRN Reason: PAIN LEVEL 7 - 10 Last Admin: 07/29/19 09:02 Dose: 5 mg Rivaroxaban (Xarelto) 20 mg PO DAILY@1800 [facility] Last Admin: 07/28/19 17:11 Dose: 20 mg Spironolactone (Aldactone -) 25 mg PO DAILY [facility] Last Admin: 07/29/19 09:02 Dose: 25 mg Tramadol HCl (Ultram -) 50 mg PO Q8H PRN PRN Reason: PAIN LEVEL 4 - 6 Last Admin: 07/28/19 21:55 Dose: 50 mg - Objective Vital Signs: Vital Signs Temperature 99.1 F 07/29/19 09:00 Pulse Rate 91 H 07/29/19 09:00 Respiratory Rate 18 07/29/19 09:00 Blood Pressure 116/59 L 07/29/19 09:00 O2 Sat by Pulse Oximetry (%) 96 07/29/19 09:00 Constitutional: Yes: Calm Cardiovascular: Yes: Pulse Irregular, S1, S2 Respiratory: Yes: CTA Bilaterally Gastrointestinal: Yes: Soft, Other (right ingiunal incision) Wound/Incision: Yes: Dressing Dry and Intact Labs: CBC, BMP 07/27/19 06:48 07/26/19 07:42 INR, PTT INR 1.23 (0.83-1.09) H 07/22/19 21:05 Problem List - Problems (1) Incarcerated right inguinal hernia Assessment/Plan: s/p surgery oob to chair analgesic Code(s): K40.30 - UNIL INGUINAL HERNIA, W OBST, W/O GANGR, NOT SPCF RECUR (2) Atrial fibrillation Assessment/Plan: xarelto and toprol for rate control Code(s): I48.91 - UNSPECIFIED ATRIAL FIBRILLATION Qualifiers: Atrial fibrillation type: persistent Qualified Code(s): I48.1 - Persistent atrial fibrillation (3) Hyperlipidemia Assessment/Plan: statin Code(s): E78.5 - HYPERLIPIDEMIA, UNSPECIFIED Qualifiers: Hyperlipidemia type: pure hypercholesterolemia Qualified Code(s): E78.00 - Pure hypercholesterolemia, unspecified; E78.0 - Pure hypercholesterolemia Assessment/Plan PT dc planning home with VNS
--- NOTE | 2019-07-29 11:40 | PN ---
Progress Note, Physician History of Present Illness: Having BM, reports nausea w/o emesis, denies chest pain, dyspnea, near or true syncope, palpitations, orthopnea, PND or LE edema. Tolerating diet, awaiting PT and d/c planning. - Current Medication List Current Medications: Active Medications Acetaminophen (Tylenol -) 650 mg PO Q4H PRN PRN Reason: FEVER Last Admin: 07/29/19 09:02 Dose: 650 mg Allopurinol (Zyloprim -) 100 mg PO DAILY [facility] Last Admin: 07/29/19 09:03 Dose: 100 mg Atorvastatin Calcium (Lipitor -) 20 mg PO HS [facility] Last Admin: 07/28/19 21:54 Dose: 20 mg Docusate Sodium (Colace -) 100 mg PO DAILY [facility] Last Admin: 07/29/19 09:04 Dose: Not Given Metoprolol Succinate (Toprol Xl -) 25 mg PO DAILY [facility] Last Admin: 07/29/19 09:03 Dose: 25 mg Ondansetron HCl (Zofran Injection) 4 mg IVPUSH Q8H PRN PRN Reason: NAUSEA Oxycodone HCl (Roxicodone -) 5 mg PO Q6H PRN PRN Reason: PAIN LEVEL 7 - 10 Last Admin: 07/29/19 09:02 Dose: 5 mg Rivaroxaban (Xarelto) 20 mg PO DAILY@1800 [facility] Last Admin: 07/28/19 17:11 Dose: 20 mg Spironolactone (Aldactone -) 25 mg PO DAILY [facility] Last Admin: 07/29/19 09:02 Dose: 25 mg Tramadol HCl (Ultram -) 50 mg PO Q8H PRN PRN Reason: PAIN LEVEL 4 - 6 Last Admin: 07/28/19 21:55 Dose: 50 mg - Objective Vital Signs: Vital Signs Temperature 99.1 F 07/29/19 09:00 Pulse Rate 91 H 07/29/19 09:00 Respiratory Rate 18 07/29/19 09:00 Blood Pressure 116/59 L 07/29/19 09:00 O2 Sat by Pulse Oximetry (%) 96 07/29/19 09:00 Constitutional: Yes: No Distress, Calm Neck: Yes: Supple Cardiovascular: Yes: Pulse Irregular Respiratory: Yes: Regular, CTA Bilaterally Gastrointestinal: Yes: Normal Bowel Sounds, Soft Edema: No Integumentary: Yes: Venous Stasis Changes Labs: CBC, BMP 07/27/19 06:48 07/26/19 07:42 INR, PTT INR 1.23 (0.83-1.09) H 07/22/19 21:05 Problem List - Problems (1) CHF (congestive heart failure) Code(s): I50.9 - HEART FAILURE, UNSPECIFIED Qualifiers: Heart failure type: diastolic Heart failure chronicity: chronic Qualified Code(s): I50.32 - Chronic diastolic (congestive) heart failure (2) CKD (chronic kidney disease) Code(s): N18.9 - CHRONIC KIDNEY DISEASE, UNSPECIFIED Qualifiers: Chronic kidney disease stage: stage 3 (moderate) Qualified Code(s): N18.3 - Chronic kidney disease, stage 3 (moderate) (3) Small bowel obstruction Code(s): K56.609 - UNSP INTESTNL OBST, UNSP TO PARTIAL VERSUS COMPLETE OBST (4) Atrial fibrillation Code(s): I48.91 - UNSPECIFIED ATRIAL FIBRILLATION Qualifiers: Atrial fibrillation type: persistent Qualified Code(s): I48.1 - Persistent atrial fibrillation (5) Coronary artery disease Code(s): I25.10 - ATHSCL HEART DISEASE OF [place] CORONARY ARTERY W/O ANG PCTRS Qualifiers: Coronary Disease-Associated Artery/Lesion type: [place] artery [place] vs. transplanted heart: [place] heart Associated angina: without angina Qualified Code(s): I25.10 - Atherosclerotic heart disease of [place] coronary artery without angina pectoris (6) Hyperlipidemia Code(s): E78.5 - HYPERLIPIDEMIA, UNSPECIFIED Qualifiers: Hyperlipidemia type: pure hypercholesterolemia Qualified Code(s): E78.00 - Pure hypercholesterolemia, unspecified; E78.0 - Pure hypercholesterolemia (7) Hypertension Code(s): I10 - ESSENTIAL (PRIMARY) HYPERTENSION Qualifiers: Hypertension type: essential hypertension Qualified Code(s): I10 - Essential (primary) hypertension (8) S/P CABG (coronary artery bypass graft) Code(s): Z95.1 - PRESENCE OF AORTOCORONARY BYPASS GRAFT (9) Chronic anticoagulation Code(s): Z79.01 - LACQUER MIXER (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 Transition zone - distal ileum within R sided inguinal hernia sac. Calcifications of L inguinal hernia sac. Some fluid in hernia sacs, in peritoneal cavity.) 1. SBO referable to recurrent incarcerated/strangulated right inguinal hernia with mesh s/p repair (removal of right inguinal hernia mesh, segmental resection of small bowel with primary stapled anatomisis) POD#6 2. CAD s/p CABG 3. Persistent afib 4. Chronic venous insufficiency 5. Carotid stenosis 6. Gout 7. Acute on ckd resolving to baseline P:1. Routine post-op care, diet as tolerated 2. Continue Allopurinol 100 qd, Lipitor 20 qd, Xarelto 20 qd, Aldactone 25 qd, Toprol XL 25 qd for rate-control, but hold Demadex 20 bid as LE edema has resolved 3. DVT prophylaxis, compression therapy, PT as tolerated 4. Eventual f/u with his ring maker Dr. Jairo Aldrich at [facility] [place] upon d/c
--- NOTE | 2019-07-29 13:52 | PN ---
Progress Note, Physician Chief Complaint: Reccurent incarcerated right inguinal hernia with SBO History of Present Illness: 79 yo male PMH Afib on eliquis, HTN, CABG, CHF presented to the ED with three days of lower abdominal pain, nausea and vomiting. He reports that the pain began on Monday after eating a sandwhich and has been worsening since its onset. 8/10 intensity, no radiation, sharp. He has been stable post operatively and has resumed GI fucntion. - Current Medication List Current Medications: Active Medications Acetaminophen (Tylenol -) 650 mg PO Q4H PRN PRN Reason: FEVER Last Admin: 07/29/19 09:02 Dose: 650 mg Allopurinol (Zyloprim -) 100 mg PO DAILY [facility] Last Admin: 07/29/19 09:03 Dose: 100 mg Atorvastatin Calcium (Lipitor -) 20 mg PO HS [facility] Last Admin: 07/28/19 21:54 Dose: 20 mg Docusate Sodium (Colace -) 100 mg PO DAILY [facility] Last Admin: 07/29/19 09:04 Dose: Not Given Metoprolol Succinate (Toprol Xl -) 25 mg PO DAILY [facility] Last Admin: 07/29/19 09:03 Dose: 25 mg Ondansetron HCl (Zofran Injection) 4 mg IVPUSH Q8H PRN PRN Reason: NAUSEA Oxycodone HCl (Roxicodone -) 5 mg PO Q6H PRN PRN Reason: PAIN LEVEL 7 - 10 Last Admin: 07/29/19 09:02 Dose: 5 mg Rivaroxaban (Xarelto) 20 mg PO DAILY@1800 [facility] Last Admin: 07/28/19 17:11 Dose: 20 mg Spironolactone (Aldactone -) 25 mg PO DAILY [facility] Last Admin: 07/29/19 09:02 Dose: 25 mg Tramadol HCl (Ultram -) 50 mg PO Q8H PRN PRN Reason: PAIN LEVEL 4 - 6 Last Admin: 07/28/19 21:55 Dose: 50 mg - Objective Vital Signs: Vital Signs Temperature 99.1 F 07/29/19 09:00 Pulse Rate 91 H 07/29/19 09:00 Respiratory Rate 18 07/29/19 09:00 Blood Pressure 116/59 L 07/29/19 09:00 O2 Sat by Pulse Oximetry (%) 96 07/29/19 09:00 Vital Signs Period Temp Pulse Resp BP Sys/Blas Pulse Ox Last 24 Hr 98 F-99.1 F 84-91 18-21 116-139/59-80 96-98 Constitutional: Yes: Well Nourished, No Distress, Calm, Obese Eyes: Yes: Conjunctiva Clear, EOM Intact HENT: Yes: Atraumatic, Normocephalic Neck: Yes: Supple, Trachea Midline Cardiovascular: Yes: Regular Rate and Rhythm, S1, S2 Respiratory: Yes: Regular, CTA Bilaterally Gastrointestinal: Yes: Normal Bowel Sounds, Soft ...Rectal Exam: Yes: Deferred Genitourinary: No: CVA Tenderness - Left, CVA Tenderness - Right Breast(s): No: Mass, Skin Changes Musculoskeletal: No: Muscle Pain, Muscle Weakness Extremities: No: Cool, Cyanosis Edema: No Peripheral Pulses WNL: Yes Peripheral Pulses: Left Radial: 2+, Right Radial: 2+, Left Doralis Pedis: 2+, Right Dorsalis Pedis: 2+, Left Femoral: 2+, Right Femoral: 2+ Wound/Incision: Yes: Clean/Dry, Well Approximated, [place] Intact, Dressing Dry and Intact, Reddened. No: Draining, Bleeding, Excoriated Neurological: Yes: Alert, Oriented Psychiatric: Yes: Alert, Oriented Labs: CBC, BMP 07/27/19 06:48 07/26/19 07:42 INR, PTT INR 1.23 (0.83-1.09) H 07/22/19 21:05 Problem List - Problems (1) Incarcerated right inguinal hernia Assessment/Plan: 79 yo male with MMP with recurrent incarcerated right inginal hernia causing SBO and a reducible left inguinal hernia POD#5 s/p repair of right recurrent incarcerated RIH with mesh. Tolerating his diet complaining of team. Diet as tolerated Adequate analgesia OOB and ambulate Physical therapy evaluation for mobilization discharge at discretion of primary team Code(s): K40.30 - UNIL INGUINAL HERNIA, W OBST, W/O GANGR, NOT SPCF RECUR (2) CHF (congestive heart failure) Code(s): I50.9 - HEART FAILURE, UNSPECIFIED Qualifiers: Heart failure type: diastolic Heart failure chronicity: chronic Qualified Code(s): I50.32 - Chronic diastolic (congestive) heart failure (3) CKD (chronic kidney disease) Code(s): N18.9 - CHRONIC KIDNEY DISEASE, UNSPECIFIED Qualifiers: Chronic kidney disease stage: stage 3 (moderate) Qualified Code(s): N18.3 - Chronic kidney disease, stage 3 (moderate) (4) Small bowel obstruction Code(s): K56.609 - UNSP INTESTNL OBST, UNSP TO PARTIAL VERSUS COMPLETE OBST (5) Atrial fibrillation Code(s): I48.91 - UNSPECIFIED ATRIAL FIBRILLATION Qualifiers: Atrial fibrillation type: persistent Qualified Code(s): I48.1 - Persistent atrial fibrillation
--- NOTE | 2019-07-29 15:25 | PN ---
Progress Note (short form) - Note Progress Note: ID CONSULT DICTATED ASYMPTOMATIC BACTERURIA + URINE C/S VRE/E COLI S/P REPAIR OF INCARCERATED HERNIA OBSERVE OFF ANTIBIOTICS CONTACT PRECAUTIONS
[2019-07-29 16:01] LABS: BASO % 0.7 % (0-2.0); EOS % 2.3 % (0-4.5); HEMATOCRIT 35.5 % (35.4-49); HEMOGLOBIN 11.7 GM/dL (11.7-16.9); LYMPH % 8.2 % (8-40); MCH 29.3 pg (25.7-33.7); MCHC 32.9 g/dl (32.0-35.9); MEAN CELL VOLUME 89.2 fl (80-96); MEAN PLT VOLUME 7.3 fl (7.5-11.1); MONO % 8.5 % (3.8-10.2); NEUT % 80.3 % (42.8-82.8); PLATELET COUNT 237 K/MM3 (134-434); RBC 3.98 M/mm3 (4.00-5.60); RDW 15.5 % (11.9-15.9); WHITE BLOOD COUNT 11.2 K/mm3 (4.0-10.0)
[2019-07-29 16:41] LABS: ALBUMIN 2.2 g/dl (3.4-5.0); ALK PHOS 88 U/L (45-117); ANION GAP 7 MMOL/L (8-16); BILIRUBIN,TOTAL 0.9 mg/dL (0.2-1); BLOOD UREA NITROGEN 29.8 mg/dL (7-18); CALCIUM 8.3 mg/dL (8.5-10.1); CHLORIDE 102 mmol/L (98-107); CO2 28 mmol/L (21-32); CREATININE 1.3 mg/dL (0.55-1.3); GLUCOSE,RANDOM 86 mg/dL (74-106); POTASSIUM 4.2 mmol/L (3.5-5.1); SGOT/AST 17 U/L (15-37); SGPT/ALT < 6 U/L (13-61); SODIUM 136 mmol/L (136-145); TOT PROT 6.1 g/dl (6.4-8.2)
[2019-07-29] MEDS: RIVAROXABAN 20 MG TABLET PO SCH (17:18)
--- NOTE | 2019-07-29 18:38 | CONS ---
INFECTIOUS DISEASE CONSULTATION DATE OF CONSULTATION: DATE OF DICTATION: 07/29/2019 The patient is a 79-year-old male who is evaluated for positive urine culture. He was admitted to the hospital on July 23, 2019, with a 3-day history of left lower quadrant abdominal pain and constipation. CAT scan revealed a small-bowel obstruction secondary to an incarcerated right inguinal hernia. The patient was taken to the operating room on July 23, where small-bowel resection and repair of the incarcerated hernia were performed. Postoperatively, he reports discoloration of his urine. However, denied any dysuria or hematuria. A [place] catheter, which was inserted perioperatively, was discontinued. At the present time, he is able to void. He has no urinary tract complaints. He denies any dysuria or hematuria. No fever or chills. PAST MEDICAL HISTORY: Positive for atrial fibrillation, hypertension, coronary artery disease, congestive heart failure. PAST SURGICAL HISTORY: Status post coronary artery bypass graft, hernia repairs. ALLERGIES: No known allergies. MEDICATIONS: Include Tylenol, Zyloprim, Lipitor, Colace, Toprol, oxycodone, Aldactone, tramadol. SOCIAL HISTORY: Resides in the community. He is a smoker. No history of alcohol abuse. SYSTEMS REVIEW: Neurologic: No loss of consciousness, seizure activity, focal weakness. Cardiac: Negative chest pain or palpitations. Respiratory: Negative cough or sputum production. Gastrointestinal: As per HPI. Genitourinary: As per HPI. LABORATORY DATA: White count 9.3, hematocrit 37.2, platelets 207. BUN 35, creatinine 1.3. Urinalysis: White cells 4. Urine culture E. coli and VRE. PHYSICAL EXAMINATION: General: He is awake and alert. Has moderate postoperative incisional discomfort. Non-toxic appearing. Vital Signs: Temperature 97.7; blood pressure 146/71; pulse 68, regular; respirations 18 per minute. HEENT: Sclera anicteric. Heart: Sounds S1, S2. Lungs: Clear. Abdomen: Soft. There is lower quadrant tenderness to palpation. Surgical dressing is in place. Extremities: Edema 1+. Bilateral lower extremity stasis dermatitis. There is a 1-cm ulceration present over the mid right pretibial area without purulent drainage or surrounding erythema. IMPRESSION: 1. Asymptomatic bacteriuria. 2. Positive urine culture, vancomycin-resistant enterococci and Escherichia coli. 3. Status post repair of incarcerated hernia. Advise observation off antibiotic therapy for this patient with asymptomatic bacteriuria. Contact precautions for VRE. Thank you for the kind referral. MIQUEL RODRIGUEZ M.D. [id number]
[2019-07-29] MEDS: ATORVASTATIN CA 20 MG TABLET (FP) PO SCH (21:41)
--- NOTE | 2019-07-30 10:54 | PN ---
Progress Note, Physician Chief Complaint: SBO History of Present Illness: 79 year old male s/p hernia mesh repair of incarcerated hernia with mesh, c/o pain 9/10, denies abdominal pain at rest. In no distress. pt states he is tolerating his diet. Denies Nausea and Vomiting. Feels frustrated, doesn't want to be in the hospital. Urine is more clear today. Encouraged PO fluids Has been refusing physical therapy due to pain Pt lives alone in apartment building, takes care of 1 cat. Last PT note, pt walked 25 ft, hesitant, is at fall risk Pt encouraged to get OOB w/ assistance once pain control is achieved - Current Medication List Current Medications: Active Medications Acetaminophen (Tylenol -) 650 mg PO Q4H PRN PRN Reason: FEVER Last Admin: 07/29/19 09:02 Dose: 650 mg Allopurinol (Zyloprim -) 100 mg PO DAILY [facility] Last Admin: 07/29/19 09:03 Dose: 100 mg Atorvastatin Calcium (Lipitor -) 20 mg PO HS [facility] Last Admin: 07/29/19 21:41 Dose: 20 mg Docusate Sodium (Colace -) 100 mg PO DAILY [facility] Last Admin: 07/29/19 09:04 Dose: Not Given Metoprolol Succinate (Toprol Xl -) 25 mg PO DAILY [facility] Last Admin: 07/29/19 09:03 Dose: 25 mg Ondansetron HCl (Zofran Injection) 4 mg IVPUSH Q8H PRN PRN Reason: NAUSEA Oxycodone HCl (Roxicodone -) 5 mg PO Q6H PRN PRN Reason: PAIN LEVEL 7 - 10 Last Admin: 07/29/19 21:05 Dose: 5 mg Rivaroxaban (Xarelto) 20 mg PO DAILY@1800 [facility] Last Admin: 07/29/19 17:18 Dose: 20 mg Spironolactone (Aldactone -) 25 mg PO DAILY [facility] Last Admin: 07/29/19 09:02 Dose: 25 mg Tramadol HCl (Ultram -) 50 mg PO Q8H PRN PRN Reason: PAIN LEVEL 4 - 6 Last Admin: 07/28/19 21:55 Dose: 50 mg - Objective Vital Signs: Vital Signs Temperature 98.4 F 07/30/19 06:00 Pulse Rate 80 07/30/19 06:00 Respiratory Rate 18 07/29/19 22:00 Blood Pressure 125/68 07/30/19 06:00 O2 Sat by Pulse Oximetry (%) 96 07/29/19 22:00 Constitutional: Yes: Well Nourished, No Distress, Calm Cardiovascular: Yes: Regular Rate and Rhythm Respiratory: Yes: Regular Gastrointestinal: Yes: Normal Bowel Sounds, Soft Genitourinary: Yes: WNL Musculoskeletal: Yes: WNL Extremities: Yes: WNL Edema: No Peripheral Pulses WNL: Yes Neurological: Yes: Alert, Oriented Psychiatric: Yes: Alert, Oriented Labs: CBC, BMP 07/29/19 15:00 07/29/19 15:00 INR, PTT INR 1.23 (0.83-1.09) H 07/22/19 21:05 Problem List - Problems (1) Small bowel obstruction Assessment/Plan: -CT Abd: notable for small bowel obstruction - R inguinal hernia with dilated bowel entering, collapsed bowel exiting. Transition zone - distal ileum within R sided inguinal hernia sac. Calcifications of L inguinal hernia sac. Some fluid in hernia sacs, in peritoneal cavity. -Seen by general surgery -s/p repair of recurrent incarcerated/ strangulated right inguinal hernia with mesh, removal of right inguinal hernia mesh, segmental resection of small bowel with primary stapled anastomosis -Pain management -tolerating diet -Encourage PO fluids -Aggressive physical therapy Code(s): K56.609 - UNSP INTESTNL OBST, UNSP TO PARTIAL VERSUS COMPLETE OBST (2) Atrial fibrillation Assessment/Plan: -AC Xarelto resumed -rate controlled Code(s): I48.91 - UNSPECIFIED ATRIAL FIBRILLATION Qualifiers: Atrial fibrillation type: persistent Qualified Code(s): I48.1 - Persistent atrial fibrillation (3) Venous (peripheral) insufficiency Assessment/Plan: -Continue with Javier bandage dressing daily -BLLE elevation Code(s): I87.2 - VENOUS INSUFFICIENCY (CHRONIC) (PERIPHERAL) Assessment/Plan Pt lives by himself, has walked with PT POD1 25 ft unsteady gait. Not a safe discharge even with home care services. Will reassess physical condition after pain is better controlled and patient is able to do PT. Auth for SNF Communicated with DC planning team
[2019-07-30] MEDS: oxyCODONE HCL 5 MG TABLET PO PRN ×3 (10:58→22:00)
[2019-07-30] MEDS: SPIRONOLACTONE 25 MG TABLET (FP) PO SCH (10:58)
[2019-07-30] MEDS: metoPROLOL SUCCINATE 25 MG TAB.SR.24H (FP) PO SCH (10:58)
[2019-07-30] MEDS: ALLOPURINOL 100 MG TABLET (FP) PO SCH (10:59)
[2019-07-30] MEDS: DOCUSATE SODIUM 100 MG CAPSULE (FP) PO SCH (11:00)
--- NOTE | 2019-07-30 14:03 | PN ---
Progress Note, Physician Chief Complaint: Events noted Expresses frustration History of Present Illness: Patient was seen and examined. Awake and alert. Chart was reviewed Denies chest pain or shortness of breath Asking for help with bowel movement - Current Medication List Current Medications: Active Medications Acetaminophen (Tylenol -) 650 mg PO Q4H PRN PRN Reason: FEVER Last Admin: 07/29/19 09:02 Dose: 650 mg Allopurinol (Zyloprim -) 100 mg PO DAILY [facility] Last Admin: 07/30/19 10:59 Dose: 100 mg Atorvastatin Calcium (Lipitor -) 20 mg PO HS [facility] Last Admin: 07/29/19 21:41 Dose: 20 mg Docusate Sodium (Colace -) 100 mg PO DAILY [facility] Last Admin: 07/30/19 11:00 Dose: 100 mg Metoprolol Succinate (Toprol Xl -) 25 mg PO DAILY [facility] Last Admin: 07/30/19 10:58 Dose: 25 mg Ondansetron HCl (Zofran Injection) 4 mg IVPUSH Q8H PRN PRN Reason: NAUSEA Oxycodone HCl (Roxicodone -) 5 mg PO Q4H PRN PRN Reason: PAIN LEVEL 7 - 10 Rivaroxaban (Xarelto) 20 mg PO DAILY@1800 [facility] Last Admin: 07/29/19 17:18 Dose: 20 mg Spironolactone (Aldactone -) 25 mg PO DAILY [facility] Last Admin: 07/30/19 10:58 Dose: 25 mg Tramadol HCl (Ultram -) 50 mg PO Q8H PRN PRN Reason: PAIN LEVEL 4 - 6 Last Admin: 07/28/19 21:55 Dose: 50 mg - Objective Vital Signs: Vital Signs Temperature 98.4 F 07/30/19 06:00 Pulse Rate 80 07/30/19 06:00 Respiratory Rate 18 07/29/19 22:00 Blood Pressure 125/68 07/30/19 06:00 O2 Sat by Pulse Oximetry (%) 96 07/29/19 22:00 Neck: Yes: Supple Cardiovascular: Yes: Pulse Irregular, S1, S2 Respiratory: Yes: Diminished Gastrointestinal: Yes: Other (Post op) Edema: Yes Integumentary: Yes: Venous Stasis Changes Labs: CBC, BMP 07/29/19 15:00 07/29/19 15:00 Problem List - Problems (1) CHF (congestive heart failure) Code(s): I50.9 - HEART FAILURE, UNSPECIFIED Qualifiers: Heart failure type: diastolic Heart failure chronicity: chronic Qualified Code(s): I50.32 - Chronic diastolic (congestive) heart failure (2) CKD (chronic kidney disease) Code(s): N18.9 - CHRONIC KIDNEY DISEASE, UNSPECIFIED Qualifiers: Chronic kidney disease stage: stage 3 (moderate) Qualified Code(s): N18.3 - Chronic kidney disease, stage 3 (moderate) (3) Incarcerated right inguinal hernia Code(s): K40.30 - UNIL INGUINAL HERNIA, W OBST, W/O GANGR, NOT SPCF RECUR (4) Small bowel obstruction Code(s): K56.609 - UNSP INTESTNL OBST, UNSP TO PARTIAL VERSUS COMPLETE OBST (5) Atrial fibrillation Code(s): I48.91 - UNSPECIFIED ATRIAL FIBRILLATION Qualifiers: Atrial fibrillation type: persistent Qualified Code(s): I48.1 - Persistent atrial fibrillation (6) Coronary artery disease Code(s): I25.10 - ATHSCL HEART DISEASE OF [place] CORONARY ARTERY W/O ANG PCTRS Qualifiers: Coronary Disease-Associated Artery/Lesion type: [place] artery [place] vs. transplanted heart: [place] heart Associated angina: without angina Qualified Code(s): I25.10 - Atherosclerotic heart disease of [place] coronary artery without angina pectoris (7) Hyperlipidemia Code(s): E78.5 - HYPERLIPIDEMIA, UNSPECIFIED Qualifiers: Hyperlipidemia type: pure hypercholesterolemia Qualified Code(s): E78.00 - Pure hypercholesterolemia, unspecified; E78.0 - Pure hypercholesterolemia (8) Hypertension Code(s): I10 - ESSENTIAL (PRIMARY) HYPERTENSION Qualifiers: Hypertension type: essential hypertension Qualified Code(s): I10 - Essential (primary) hypertension (9) S/P CABG (coronary artery bypass graft) Code(s): Z95.1 - PRESENCE OF AORTOCORONARY BYPASS GRAFT (10) Venous (peripheral) insufficiency Code(s): I87.2 - VENOUS INSUFFICIENCY (CHRONIC) (PERIPHERAL) Assessment/Plan 1. SBO referable to recurrent incarcerated/strangulated right inguinal hernia with mesh s/p repair (removal of right inguinal hernia mesh, segmental resection of small bowel) 2. CAD s/p CABG 3. Persistent AF 4. Chronic venous insufficiency 5. Carotid stenosis 6. Gout 7. Acute on ckd resolving to baseline PLAN: 1. Continue post op care 2. Continue Allopurinol 100 mg QD, Lipitor 20 mg QD, Xarelto 20 mg QD, Aldactone 25 mg QD and Toprol XL 25 mg QD for rate-control. Demadex held 3. DVT prophylaxis, compression therapy and PT as tolerated 4. 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airo [place] [facility] [place] Further plans are to follow Bharath King MD
[2019-07-30 16:45] VITALS: BMI 28.5
[2019-07-30] MEDS: RIVAROXABAN 20 MG TABLET PO SCH (17:32)
[2019-07-30] MEDS: ATORVASTATIN CA 20 MG TABLET (FP) PO SCH (22:02)
[2019-07-31] MEDS: oxyCODONE HCL 5 MG TABLET PO PRN ×2 (10:00→19:50)
[2019-07-31] MEDS: metoPROLOL SUCCINATE 25 MG TAB.SR.24H (FP) PO SCH (10:01)
[2019-07-31] MEDS: DOCUSATE SODIUM 100 MG CAPSULE (FP) PO SCH (10:01)
[2019-07-31] MEDS: SPIRONOLACTONE 25 MG TABLET (FP) PO SCH (10:01)
[2019-07-31] MEDS: ALLOPURINOL 100 MG TABLET (FP) PO SCH (10:01)
--- NOTE | 2019-07-31 11:03 | PN ---
Progress Note, Physician History of Present Illness: Reports RLQ pain and tenderness, hesitant for physical therapy. - Current Medication List Current Medications: Active Medications Acetaminophen (Tylenol -) 650 mg PO Q4H PRN PRN Reason: FEVER Last Admin: 07/29/19 09:02 Dose: 650 mg Allopurinol (Zyloprim -) 100 mg PO DAILY [facility] Last Admin: 07/31/19 10:01 Dose: 100 mg Atorvastatin Calcium (Lipitor -) 20 mg PO HS [facility] Last Admin: 07/30/19 22:02 Dose: 20 mg Docusate Sodium (Colace -) 100 mg PO DAILY [facility] Last Admin: 07/31/19 10:01 Dose: 100 mg Metoprolol Succinate (Toprol Xl -) 25 mg PO DAILY [facility] Last Admin: 07/31/19 10:01 Dose: 25 mg Ondansetron HCl (Zofran Injection) 4 mg IVPUSH Q8H PRN PRN Reason: NAUSEA Oxycodone HCl (Roxicodone -) 5 mg PO Q4H PRN PRN Reason: PAIN LEVEL 7 - 10 Last Admin: 07/31/19 10:00 Dose: 5 mg Rivaroxaban (Xarelto) 20 mg PO DAILY@1800 [facility] Last Admin: 07/30/19 17:32 Dose: 20 mg Spironolactone (Aldactone -) 25 mg PO DAILY [facility] Last Admin: 07/31/19 10:01 Dose: 25 mg Tramadol HCl (Ultram -) 50 mg PO Q8H PRN PRN Reason: PAIN LEVEL 4 - 6 Last Admin: 07/28/19 21:55 Dose: 50 mg - Objective Vital Signs: Vital Signs Temperature 98.6 F 07/31/19 10:05 Pulse Rate 86 07/31/19 10:05 Respiratory Rate 18 07/31/19 10:05 Blood Pressure 129/69 07/31/19 10:05 O2 Sat by Pulse Oximetry (%) 95 07/30/19 21:00 Constitutional: Yes: No Distress, Calm Neck: Yes: Supple Cardiovascular: Yes: Pulse Irregular Respiratory: Yes: Regular, Diminished Gastrointestinal: Yes: Soft, Hypoactive Bowel Sounds, Tenderness (RLQ) Edema: No Labs: CBC, BMP 07/29/19 15:00 07/29/19 15:00 INR, PTT INR 1.23 (0.83-1.09) H 07/22/19 21:05 Problem List - Problems (1) CHF (congestive heart failure) Code(s): I50.9 - HEART FAILURE, UNSPECIFIED Qualifiers: Heart failure type: diastolic Heart failure chronicity: chronic Qualified Code(s): I50.32 - Chronic diastolic (congestive) heart failure (2) CKD (chronic kidney disease) Code(s): N18.9 - CHRONIC KIDNEY DISEASE, UNSPECIFIED Qualifiers: Chronic kidney disease stage: stage 3 (moderate) Qualified Code(s): N18.3 - Chronic kidney disease, stage 3 (moderate) (3) Small bowel obstruction Code(s): K56.609 - UNSP INTESTNL OBST, UNSP TO PARTIAL VERSUS COMPLETE OBST (4) Atrial fibrillation Code(s): I48.91 - UNSPECIFIED ATRIAL FIBRILLATION Qualifiers: Atrial fibrillation type: persistent Qualified Code(s): I48.1 - Persistent atrial fibrillation (5) Coronary artery disease Code(s): I25.10 - ATHSCL HEART DISEASE OF [place] CORONARY ARTERY W/O ANG PCTRS Qualifiers: Coronary Disease-Associated Artery/Lesion type: [place] artery [place] vs. transplanted heart: [place] heart Associated angina: without angina Qualified Code(s): I25.10 - Atherosclerotic heart disease of [place] coronary artery without angina pectoris (6) Hyperlipidemia Code(s): E78.5 - HYPERLIPIDEMIA, UNSPECIFIED Qualifiers: Hyperlipidemia type: pure hypercholesterolemia Qualified Code(s): E78.00 - Pure hypercholesterolemia, unspecified; E78.0 - Pure hypercholesterolemia (7) Hypertension Code(s): I10 - ESSENTIAL (PRIMARY) HYPERTENSION Qualifiers: Hypertension type: essential hypertension Qualified Code(s): I10 - Essential (primary) hypertension (8) S/P CABG (coronary artery bypass graft) Code(s): Z95.1 - PRESENCE OF AORTOCORONARY BYPASS GRAFT (9) Chronic anticoagulation Code(s): Z79.01 - 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 Transition zone - distal ileum within R sided inguinal hernia sac. Calcifications of L inguinal hernia sac. Some fluid in hernia sacs, in peritoneal cavity.) 1. SBO referable to recurrent incarcerated/strangulated right inguinal hernia with mesh s/p repair (removal of right inguinal hernia mesh, segmental resection of small bowel) 2. CAD s/p CABG 3. Persistent AF 4. Chronic venous insufficiency 5. Carotid stenosis 6. Gout 7. Acute on ckd resolving to baseline PLAN: 1. Continue post op care, surgical f/u, analgesia as needed 2. Continue Allopurinol 100 mg QD, Lipitor 20 mg QD, Xarelto 20 mg QD, Aldactone 25 mg QD and Toprol XL 25 mg QD for rate-control. Demadex held 3. DVT prophylaxis, compression therapy and PT as tolerated 4. Eventual f/u [place] his informatics consultant [place] [facility] [place]
--- NOTE | 2019-07-31 11:21 | DS ---
Physical Examination Vital Signs: Vital Signs Temperature 98.6 F 07/31/19 10:05 Pulse Rate 86 07/31/19 10:05 Respiratory Rate 18 07/31/19 10:05 Blood Pressure 129/69 07/31/19 10:05 O2 Sat by Pulse Oximetry (%) 95 07/30/19 21:00 Findings/Remarks: Mr. Arevalo is a 79 y/o M with hx afib on eliquis, HTN, CABG, CHF p/w three days of lower abdominal pain, N, V. He reports that the pain began on Monday after eating a sandwhich and has been worsening since its onset. 06/22 intensity, no radiation, sharp. He endorses nausea that also began on Monday, as well as 3x NBNB vomiting today. He reports that he has maintained a liquid diet since it's onset as he has been nauseated and concerned that he would vomit with solid food. He reports that the episodes of emesis today were after attempting to eat crackers. Hernia repair in 1992. Constitutional: Yes: Well Nourished, No Distress, Calm Cardiovascular: Yes: Regular Rate and Rhythm Respiratory: Yes: Regular Gastrointestinal: Yes: Normal Bowel Sounds, Soft, Tenderness (incisional) Renal/: Yes: WNL Musculoskeletal: Yes: Muscle Weakness Extremities: Yes: WNL Edema: No Peripheral Pulses WNL: Yes Wound/Incision: Yes: Dressing Dry and Intact Neurological: Yes: Alert, Oriented Psychiatric: Yes: Alert, Oriented Labs: CBC, BMP 07/29/19 15:00 07/29/19 15:00 Discharge Summary Reason For Visit: SMALL BOWEL OBSTRUCTION Current Active Problems CHF (congestive heart failure) (Acute) CKD (chronic kidney disease) (Acute) Chronic anticoagulation (Acute) Incarcerated right inguinal hernia (Acute) Small bowel obstruction (Acute) Other Procedures: Right inguinal hernia repair with segmental ressection of small bowel on 07/24/[address] Xavier Barone of [facility]. Hospital Course: Laboratory Last Values WBC 11.2 K/mm3 (4.0-10.0) H 07/29/19 15:00 RBC 3.98 M/mm3 (4.00-5.60) L 07/29/19 15:00 Hgb 11.7 GM/dL (11.7-16.9) 07/29/19 15:00 Hct 35.5 % (35.4-49) 07/29/19 15:00 MCV 89.2 fl (80-96) 07/29/19 15:00 MCH 29.3 pg (25.7-33.7) 07/29/19 15:00 MCHC 32.9 g/dl (32.0-35.9) 07/29/19 15:00 RDW 15.5 % (11.9-15.9) 07/29/19 15:00 Plt Count 237 K/MM3 (134-434) 07/29/19 15:00 MPV 7.3 fl (7.5-11.1) L 07/29/19 15:00 Absolute Neuts (auto) 9.0 K/mm3 (1.5-8.0) H 07/29/19 15:00 Neutrophils % 80.3 % (42.8-82.8) 07/29/19 15:00 Lymphocytes % 8.2 % (8-40) 07/29/19 15:00 Monocytes % 8.5 % (3.8-10.2) 07/29/19 15:00 Eosinophils % 2.3 % (0-4.5) 07/29/19 15:00 Basophils % 0.7 % (0-2.0) 07/29/19 15:00 Nucleated RBC % 0 % (0-0) 07/29/19 15:00 PT with INR 14.60 SEC (9.7-13.0) H 07/22/19 21:05 INR 1.23 (0.83-1.09) H 07/22/19 21:05 PTT (Actin FS) 34.8 SECONDS (25.2-36.5) 07/22/19 21:05 Sodium 136 mmol/L (136-145) 07/29/19 15:00 Potassium 4.2 mmol/L (3.5-5.1) 07/29/19 15:00 Chloride 102 mmol/L (98-107) 07/29/19 15:00 Carbon Dioxide 28 mmol/L (21-32) 07/29/19 15:00 Anion Gap 7 MMOL/L (8-16) L 07/29/19 15:00 BUN 29.8 mg/dL (7-18) H 07/29/19 15:00 Creatinine 1.3 mg/dL (0.55-1.3) 07/29/19 15:00 Est GFR (CKD-EPI)AfAm 60.15 07/29/19 15:00 Est GFR (CKD-EPI)NonAf 51.90 07/29/19 15:00 Random Glucose 86 mg/dL (74-106) 07/29/19 15:00 Lactic Acid 2.0 mmol/L (0.4-2.0) 07/22/19 21:05 Calcium 8.3 mg/dL (8.5-10.1) L 07/29/19 15:00 Total Bilirubin 0.9 mg/dL (0.2-1) 07/29/19 15:00 AST 17 U/L (15-37) 07/29/19 15:00 ALT < 6 U/L (13-61) L 07/29/19 15:00 Alkaline Phosphatase 88 U/L (45-117) 07/29/19 15:00 Creatine Kinase 98 U/L (26-308) 07/22/19 21:05 Troponin I < 0.02 ng/ml (0.00-0.05) 07/22/19 21:05 Total Protein 6.1 g/dl (6.4-8.2) L 07/29/19 15:00 Albumin 2.2 g/dl (3.4-5.0) L 07/29/19 15:00 Lipase 79 U/L (73-393) 07/22/19 21:05 Urine Color Dk yellow 07/23/19 00:45 Urine Appearance Cloudy 07/23/19 00:45 Urine pH 5.0 (5.0-8.0) 07/23/19 00:45 Ur Specific Counselor 1.031 (1.010-1.035) 07/23/19 00:45 Urine Protein Trace (NEGATIVE) 07/23/19 00:45 Urine Glucose (UA) Negative (NEGATIVE) 07/23/19 00:45 Urine Ketones Trace (NEGATIVE) H 07/23/19 00:45 Urine Blood Negative (NEGATIVE) 07/23/19 00:45 Urine Nitrite Negative (NEGATIVE) 07/23/19 00:45 Urine Bilirubin 2+ (NEGATIVE) H 07/23/19 00:45 Urine Urobilinogen 1.0 mg/dL (0.2-1.0) 07/23/19 00:45 Ur Leukocyte Esterase 1+ (NEGATIVE) H 07/23/19 00:45 Urine WBC (Auto) 42 /hpf (0-5) 07/23/19 00:45 Urine RBC (Auto) 4 /hpf (0-4) 07/23/19 00:45 Urine Casts (Auto) 28 /lpf (0-8) 07/23/19 00:45 U Pathogenic Cast Auto None seen /lpf (NEGATIVE) 07/23/19 00:45 U Epithel Cells (Auto) 2.6 /HPF (0-5/HPF) 07/23/19 00:45 Urine Bacteria (Auto) 1185.1 /hpf (NEGATIVE) 07/23/19 00:45 Blood Type A2B POSITIVE 07/23/19 12:30 Antibody Screen Negative 07/23/19 09:10 Microbiology 07/27/19 12:10 Urine - Urine Clean Catch Urine Culture - Final Escherichia Coli Vr Ec Faecium -NO TREATMENT RECOMMENDED BY ID FOR UTI-ASYMPTOMATIC UTI Vital Signs Temp 98.6 F 07/31/19 10:05 Pulse 86 07/31/19 10:05 Resp 18 07/31/19 10:05 BP 129/69 07/31/19 10:05 Pulse Ox 95 07/30/19 21:00 Intake & Output 07/30/19 07/30/19 07/31/19 11:59 23:59 11:59 Intake Total 240 675 300 Output Total 850 300 Balance 240 -175 0 Weight 100.698 kg Intake: Oral 240 675 300 Output: Urine 850 300 Void 850 300 Other: Voiding Method Urinal Urinal # Unmeasured Voids Void 1 1 Bowel Movement Yes Yes: watery No # Bowel Movements 1 1 Height 6 ft 2 in Body Mass Index (BMI) 28.5 Condition: Stable - Instructions Diet, Activity, Other Instructions: Postoperative instructions: You had a right inguinal hernia repair with segmental ressection of small bowel on 07/24/[address] Xavier Barone of [facility]. Activity: Resume your usual activities gradually, but no heavy exertion or lifting more than 10-15 pounds for 4-6 weeks. Remove dressings 48 hours after surgery, if they are not already off. You may shower daily starting then, just pat the incision areas dry. No bath or swimming until skin incisions have healed. [place] should not need to be recovered with any dressings, unless you have been told otherwise. Eat lightly at first, but advance to your usual diet as tolerated. Pain: For pain, you may use and alternate Tylenol (acetaminophen) 1-2 pills and/ or ibuprofen 200 mg (1-3 pills) every 6 hours each as needed; this means that you can take one OR the other at 3-hour intervals. If you are prescribed a Tylenol/narcotic combination for severe pain, use it instead of plain Tylenol as needed and switch back when your pain starts decreasing. Do not take more than 4000 mg of acetaminophen in a day. Take medications as prescribed or indicated on the labeling. Follow-up: Call Dr. Barone' office at [phone] to make your postop appointment (Monday in approximately 2 weeks after surgery as advised). Clinic is held in the [facility] on the first floor of [facility]. Call the office if you have: * increasing pain not responsive to pain medication * fever of 101F or higher * vomiting * unusual or increasing bleeding or drainage from wounds * increasing redness or swelling at wound sites * inability to urinate Also, see your primary medical doctor within 1-2 weeks. Referrals: Xavier Barone MD [Staff Physician] - Jairo Aldrich [Non Staff, Medical] - Disposition: VNS/HOME HEALTH CARE - Home Medications Comprehensive Discharge Medication List: Ambulatory Orders Rivaroxaban [Xarelto] 15 mg PO DAILY 09/11/15 Atorvastatin Ca [Lipitor] 20 mg PO HS 10/10/18 Allopurinol [Zyloprim -] 100 mg PO DAILY #30 tablet MDD 07/26/19 Spironolactone [Aldactone -] 25 mg PO DAILY #30 tablet MDD 07/26/19
--- NOTE | 2019-07-31 12:47 | PN ---
Progress Note, Physician Chief Complaint: SBO History of Present Illness: 79 year old male s/p hernia mesh repair of incarcerated hernia with mesh, c/o pain 9/10, denies abdominal pain at rest. In no distress. pt states he is tolerating his diet. Denies Nausea and Vomiting. Feels frustrated, doesn't want to be in the hospital. Urine is more clear today. Encouraged PO fluids Has been refusing physical therapy due to pain Pt lives alone in apartment building, takes care of 1 cat. Last PT note, pt walked 25 ft, hesitant, is at fall risk Pt encouraged to get OOB w/ assistance once pain control is achieved Pt. C/o of suprapubic pain UC+VRE+ Ecoli - Current Medication List Current Medications: Active Medications Acetaminophen (Tylenol -) 650 mg PO Q4H PRN PRN Reason: FEVER Last Admin: 07/29/19 09:02 Dose: 650 mg Allopurinol (Zyloprim -) 100 mg PO DAILY [facility] Last Admin: 07/31/19 10:01 Dose: 100 mg Atorvastatin Calcium (Lipitor -) 20 mg PO HS [facility] Last Admin: 07/30/19 22:02 Dose: 20 mg Docusate Sodium (Colace -) 100 mg PO DAILY [facility] Last Admin: 07/31/19 10:01 Dose: 100 mg Metoprolol Succinate (Toprol Xl -) 25 mg PO DAILY [facility] Last Admin: 07/31/19 10:01 Dose: 25 mg Ondansetron HCl (Zofran Injection) 4 mg IVPUSH Q8H PRN PRN Reason: NAUSEA Oxycodone HCl (Roxicodone -) 5 mg PO Q4H PRN PRN Reason: PAIN LEVEL 7 - 10 Last Admin: 07/31/19 10:00 Dose: 5 mg Rivaroxaban (Xarelto) 20 mg PO DAILY@1800 [facility] Last Admin: 07/30/19 17:32 Dose: 20 mg Spironolactone (Aldactone -) 25 mg PO DAILY [facility] Last Admin: 07/31/19 10:01 Dose: 25 mg Tramadol HCl (Ultram -) 50 mg PO Q8H PRN PRN Reason: PAIN LEVEL 4 - 6 Last Admin: 07/28/19 21:55 Dose: 50 mg - Objective Vital Signs: Vital Signs Temperature 98.6 F 07/31/19 10:05 Pulse Rate 86 07/31/19 10:05 Respiratory Rate 18 07/31/19 10:05 Blood Pressure 129/69 07/31/19 10:05 O2 Sat by Pulse Oximetry (%) 95 07/30/19 21:00 Constitutional: Yes: Well Nourished, No Distress, Calm Cardiovascular: Yes: Regular Rate and Rhythm Respiratory: Yes: Regular Gastrointestinal: Yes: Normal Bowel Sounds, Soft, Tenderness (Incisional+ Supra pubic) Genitourinary: Yes: WNL Musculoskeletal: Yes: Muscle Weakness Extremities: Yes: WNL Edema: No Peripheral Pulses WNL: Yes Neurological: Yes: Alert, Oriented Psychiatric: Yes: Alert, Oriented Labs: CBC, BMP 07/29/19 15:00 07/29/19 15:00 INR, PTT INR 1.23 (0.83-1.09) H 07/22/19 21:05 Problem List - Problems (1) Small bowel obstruction Assessment/Plan: -CT Abd: notable for small bowel obstruction - R inguinal hernia with dilated bowel entering, collapsed bowel exiting. Transition zone - distal ileum within R sided inguinal hernia sac. Calcifications of L inguinal hernia sac. Some fluid in hernia sacs, in peritoneal cavity. -Seen by general surgery -s/p repair of recurrent incarcerated/ strangulated right inguinal hernia with mesh, removal of right inguinal hernia mesh, segmental resection of small bowel with primary stapled anastomosis -Pain management -tolerating diet -Encourage PO fluids -Aggressive physical therapy Code(s): K56.609 - UNSP INTESTNL OBST, UNSP TO PARTIAL VERSUS COMPLETE OBST (2) Atrial fibrillation Assessment/Plan: -AC Xarelto resumed -rate controlled Code(s): I48.91 - UNSPECIFIED ATRIAL FIBRILLATION Qualifiers: Atrial fibrillation type: persistent Qualified Code(s): I48.1 - Persistent atrial fibrillation (3) Venous (peripheral) insufficiency Assessment/Plan: -Continue with Javier bandage dressing daily -BLLE elevation Code(s): I87.2 - VENOUS INSUFFICIENCY (CHRONIC) (PERIPHERAL) (4) UTI (urinary tract infection) Assessment/Plan: -UC: Microbiology 07/27/19 12:10 Urine - Urine Clean Catch Urine Culture - Final Escherichia Coli Vr Ec Faecium 07/25/19 08:00 Urine - Urine [place] Urine Culture - Final Contaminated: Please Repeat -Start on Rocephin x 2 doses -Switch to Macrobid 100 m g po BID x 7 days upon discharge Code(s): N39.0 - URINARY TRACT INFECTION, SITE NOT SPECIFIED Assessment/Plan see problem list PT-poor performance
[2019-07-31] MEDS ORDERED: cefTRIAXone SODIUM 1 GM VIAL ONE (14:37)
[2019-07-31] MEDS ORDERED: DEXTROSE 5%-WATER - 50 ML IVPB ONE (14:37)
[2019-07-31] MEDS: CEFTRIAXONE 1 GM in DEXTROSE 5%-WATER - 50 ML IVPB SCH (14:47)
[2019-07-31] MEDS: RIVAROXABAN 20 MG TABLET PO SCH (18:01)
[2019-07-31] MEDS: ACETAMINOPHEN 325 MG TABLET (FP) PO PRN (19:49)
[2019-07-31] MEDS: ATORVASTATIN CA 20 MG TABLET (FP) PO SCH (22:12)
--- NOTE | 2019-08-01 10:39 | PN ---
Progress Note, Physician Chief Complaint: SBO Afib History of Present Illness: Previous notes and events reviewed awake and alert NAD no complaints SOB or chest pain last dose of Ceftriaxone today will be d/c to SNF with Macrobid - Current Medication List Current Medications: Active Medications Acetaminophen (Tylenol -) 650 mg PO Q4H PRN PRN Reason: FEVER Last Admin: 07/31/19 19:49 Dose: 650 mg Allopurinol (Zyloprim -) 100 mg PO DAILY [facility] Last Admin: 07/31/19 10:01 Dose: 100 mg Atorvastatin Calcium (Lipitor -) 20 mg PO HS [facility] Last Admin: 07/31/19 22:12 Dose: 20 mg Docusate Sodium (Colace -) 100 mg PO DAILY [facility] Last Admin: 07/31/19 10:01 Dose: 100 mg Ceftriaxone Sodium 1 gm/ (Dextrose) 50 mls @ 100 mls/hr IVPB DAILY [facility]; Protocol Last Admin: 07/31/19 14:47 Dose: 100 mls/hr Metoprolol Succinate (Toprol Xl -) 25 mg PO DAILY [facility] Last Admin: 07/31/19 10:01 Dose: 25 mg Ondansetron HCl (Zofran Injection) 4 mg IVPUSH Q8H PRN PRN Reason: NAUSEA Oxycodone HCl (Roxicodone -) 5 mg PO Q4H PRN PRN Reason: PAIN LEVEL 7 - 10 Last Admin: 07/31/19 19:50 Dose: 5 mg Rivaroxaban (Xarelto) 20 mg PO DAILY@1800 [facility] Last Admin: 07/31/19 18:01 Dose: 20 mg Spironolactone (Aldactone -) 25 mg PO DAILY [facility] Last Admin: 07/31/19 10:01 Dose: 25 mg Tramadol HCl (Ultram -) 50 mg PO Q8H PRN PRN Reason: PAIN LEVEL 4 - 6 Last Admin: 07/28/19 21:55 Dose: 50 mg - Objective Vital Signs: Vital Signs Temperature 97.3 F L 08/01/19 04:00 Pulse Rate 86 08/01/19 04:00 Respiratory Rate 20 08/01/19 04:00 Blood Pressure 130/55 L 08/01/19 04:00 O2 Sat by Pulse Oximetry (%) 95 07/31/19 21:00 Constitutional: Yes: No Distress, Calm Eyes: Yes: Conjunctiva Clear HENT: Yes: Atraumatic Cardiovascular: Yes: Regular Rate and Rhythm Respiratory: Yes: Regular, CTA Bilaterally Gastrointestinal: Yes: Normal Bowel Sounds, Soft Musculoskeletal: Yes: Muscle Weakness Extremities: Yes: WNL Edema: No Wound/Incision: Yes: Dressing Dry and Intact Neurological: Yes: Alert, Oriented Psychiatric: Yes: Alert, Oriented Labs: CBC, BMP 07/29/19 15:00 07/29/19 15:00 INR, PTT INR 1.23 (0.83-1.09) H 07/22/19 21:05 Microbiology 07/27/19 12:10 Urine - Urine Clean Catch Urine Culture - Final Escherichia Coli Vr Ec Faecium 07/25/19 08:00 Urine - Urine [place] Urine Culture - Final Contaminated: Please Repeat Problem List - Problems (1) CKD (chronic kidney disease) Assessment/Plan: -BUN/Cr 29.8/1.3 -monitor renal function -improving Code(s): N18.9 - CHRONIC KIDNEY DISEASE, UNSPECIFIED Qualifiers: Chronic kidney disease stage: stage 3 (moderate) Qualified Code(s): N18.3 - Chronic kidney disease, stage 3 (moderate) (2) Small bowel obstruction Assessment/Plan: -repair of incarcerated strangulated hernia and segmental resection of small bowel -Incentive Spirometer -pain control -dvt ppx -initial CT scan showed high grade SBO related to an incarcerated right inguinal hernia involving distal ileal loops, left inguinal hernia without evidence of incarceration -will need PT Code(s): K56.609 - UNSP INTESTNL OBST, UNSP TO PARTIAL VERSUS COMPLETE OBST (3) Atrial fibrillation Assessment/Plan: -continue Xarelto when resume PO intake Code(s): I48.91 - UNSPECIFIED ATRIAL FIBRILLATION Qualifiers: Atrial fibrillation type: persistent Qualified Code(s): I48.1 - Persistent atrial fibrillation (4) Hyperlipidemia Assessment/Plan: -Lipitor Code(s): E78.5 - HYPERLIPIDEMIA, UNSPECIFIED Qualifiers: Hyperlipidemia type: pure hypercholesterolemia Qualified Code(s): E78.00 - Pure hypercholesterolemia, unspecified; E78.0 - Pure hypercholesterolemia Assessment/Plan see problem list
[2019-08-01] MEDS ORDERED: DEXTROSE 5%-WATER - 50 ML IVPB ONE (10:56)
[2019-08-01] MEDS ORDERED: cefTRIAXone SODIUM 1 GM VIAL ONE (10:56)
[2019-08-01] MEDS: CEFTRIAXONE 1 GM in DEXTROSE 5%-WATER - 50 ML IVPB SCH (10:59)
[2019-08-01] MEDS: SPIRONOLACTONE 25 MG TABLET (FP) PO SCH (11:00)
[2019-08-01] MEDS: DOCUSATE SODIUM 100 MG CAPSULE (FP) PO SCH (11:00)
[2019-08-01] MEDS: metoPROLOL SUCCINATE 25 MG TAB.SR.24H (FP) PO SCH (11:00)
[2019-08-01] MEDS: ALLOPURINOL 100 MG TABLET (FP) PO SCH (11:00)
--- NOTE | 2019-08-01 12:35 | PN ---
Progress Note, Physician History of Present Illness: Reports RLQ pain and tenderness, hesitant for physical therapy. - Current Medication List Current Medications: Active Medications Acetaminophen (Tylenol -) 650 mg PO Q4H PRN PRN Reason: FEVER Last Admin: 07/31/19 19:49 Dose: 650 mg Allopurinol (Zyloprim -) 100 mg PO DAILY [facility] Last Admin: 08/01/19 11:00 Dose: 100 mg Atorvastatin Calcium (Lipitor -) 20 mg PO HS [facility] Last Admin: 07/31/19 22:12 Dose: 20 mg Docusate Sodium (Colace -) 100 mg PO DAILY [facility] Last Admin: 08/01/19 11:00 Dose: 100 mg Ceftriaxone Sodium 1 gm/ (Dextrose) 50 mls @ 100 mls/hr IVPB DAILY [facility]; Protocol Last Admin: 08/01/19 10:59 Dose: 100 mls/hr Metoprolol Succinate (Toprol Xl -) 25 mg PO DAILY [facility] Last Admin: 08/01/19 11:00 Dose: 25 mg Ondansetron HCl (Zofran Injection) 4 mg IVPUSH Q8H PRN PRN Reason: NAUSEA Oxycodone HCl (Roxicodone -) 5 mg PO Q4H PRN PRN Reason: PAIN LEVEL 7 - 10 Last Admin: 07/31/19 19:50 Dose: 5 mg Rivaroxaban (Xarelto) 20 mg PO DAILY@1800 [facility] Last Admin: 07/31/19 18:01 Dose: 20 mg Spironolactone (Aldactone -) 25 mg PO DAILY [facility] Last Admin: 08/01/19 11:00 Dose: 25 mg Tramadol HCl (Ultram -) 50 mg PO Q8H PRN PRN Reason: PAIN LEVEL 4 - 6 Last Admin: 07/28/19 21:55 Dose: 50 mg - Objective Vital Signs: Vital Signs Temperature 98.8 F 08/01/19 11:29 Pulse Rate 96 H 08/01/19 11:29 Respiratory Rate 17 08/01/19 11:29 Blood Pressure 126/60 08/01/19 11:29 O2 Sat by Pulse Oximetry (%) 95 07/31/19 21:00 Constitutional: Yes: No Distress, Calm Neck: Yes: Supple Cardiovascular: Yes: Pulse Irregular Respiratory: Yes: Regular, Diminished Gastrointestinal: Yes: Normal Bowel Sounds, Soft, Tenderness (RLQ) Edema: No Integumentary: Yes: Venous Stasis Changes Labs: CBC, BMP 07/29/19 15:00 07/29/19 15:00 INR, PTT INR 1.23 (0.83-1.09) H 07/22/19 21:05 Problem List - Problems (1) CHF (congestive heart failure) Code(s): I50.9 - HEART FAILURE, UNSPECIFIED Qualifiers: Heart failure type: diastolic Heart failure chronicity: chronic Qualified Code(s): I50.32 - Chronic diastolic (congestive) heart failure (2) CKD (chronic kidney disease) Code(s): N18.9 - CHRONIC KIDNEY DISEASE, UNSPECIFIED Qualifiers: Chronic kidney disease stage: stage 3 (moderate) Qualified Code(s): N18.3 - Chronic kidney disease, stage 3 (moderate) (3) Small bowel obstruction Code(s): K56.609 - UNSP INTESTNL OBST, UNSP TO PARTIAL VERSUS COMPLETE OBST (4) Atrial fibrillation Code(s): I48.91 - UNSPECIFIED ATRIAL FIBRILLATION Qualifiers: Atrial fibrillation type: persistent Qualified Code(s): I48.1 - Persistent atrial fibrillation (5) Coronary artery disease Code(s): I25.10 - ATHSCL HEART DISEASE OF [place] CORONARY ARTERY W/O ANG PCTRS Qualifiers: Coronary Disease-Associated Artery/Lesion type: [place] artery [place] vs. transplanted heart: [place] heart Associated angina: without angina Qualified Code(s): I25.10 - Atherosclerotic heart disease of [place] coronary artery without angina pectoris (6) Hyperlipidemia Code(s): E78.5 - HYPERLIPIDEMIA, UNSPECIFIED Qualifiers: Hyperlipidemia type: pure hypercholesterolemia Qualified Code(s): E78.00 - Pure hypercholesterolemia, unspecified; E78.0 - Pure hypercholesterolemia (7) Hypertension Code(s): I10 - ESSENTIAL (PRIMARY) HYPERTENSION Qualifiers: Hypertension type: essential hypertension Qualified Code(s): I10 - Essential (primary) hypertension (8) S/P CABG (coronary artery bypass graft) Code(s): Z95.1 - PRESENCE OF AORTOCORONARY BYPASS GRAFT (9) Chronic anticoagulation Code(s): Z79.01 - USP (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 Transition zone - distal ileum within R sided inguinal hernia sac. Calcifications of L inguinal hernia sac. Some fluid in hernia sacs, in peritoneal cavity.) 1. SBO referable to recurrent incarcerated/strangulated right inguinal hernia with mesh s/p repair (removal of right inguinal hernia mesh, segmental resection of small bowel) 2. CAD s/p CABG 3. Persistent AF 4. Chronic venous insufficiency 5. Carotid stenosis 6. Gout 7. Acute on ckd resolving to baseline PLAN: 1. Continue post op care, surgical f/u, analgesia as needed 2. Continue Allopurinol 100 mg QD, Lipitor 20 mg QD, Xarelto 20 mg QD, Aldactone 25 mg QD and Toprol XL 25 mg QD for rate-control. Demadex held 3. DVT prophylaxis, compression therapy and PT as tolerated 4. 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 [place]airo [place] [facility]
[2019-08-01] MEDS: oxyCODONE HCL 5 MG TABLET PO PRN ×2 (12:57→19:18)
[2019-08-01] MEDS: ACETAMINOPHEN 325 MG TABLET (FP) PO PRN ×2 (12:57→19:18)
[2019-08-01] MEDS: RIVAROXABAN 20 MG TABLET PO SCH (19:18)
--- NOTE | 2019-08-01 20:06 | PN ---
Progress Note, Physician Chief Complaint: Reccurent incarcerated right inguinal hernia with SBO History of Present Illness: 79 yo male PMH Afib on eliquis, HTN, CABG, CHF presented to the ED with three days of lower abdominal pain, nausea and vomiting. He reports that the pain began on Monday after eating a sandwhich and has been worsening since its onset. 8/10 intensity, no radiation, sharp. He has been stable post operatively and has resumed GI fucntion. - Current Medication List Current Medications: Active Medications Acetaminophen (Tylenol -) 650 mg PO Q4H PRN PRN Reason: FEVER Last Admin: 08/01/19 19:18 Dose: 650 mg Allopurinol (Zyloprim -) 100 mg PO DAILY [facility] Last Admin: 08/01/19 11:00 Dose: 100 mg Atorvastatin Calcium (Lipitor -) 20 mg PO HS [facility] Last Admin: 07/31/19 22:12 Dose: 20 mg Docusate Sodium (Colace -) 100 mg PO DAILY [facility] Last Admin: 08/01/19 11:00 Dose: 100 mg Ceftriaxone Sodium 1 gm/ (Dextrose) 50 mls @ 100 mls/hr IVPB DAILY [facility]; Protocol Last Admin: 08/01/19 10:59 Dose: 100 mls/hr Metoprolol Succinate (Toprol Xl -) 25 mg PO DAILY [facility] Last Admin: 08/01/19 11:00 Dose: 25 mg Ondansetron HCl (Zofran Injection) 4 mg IVPUSH Q8H PRN PRN Reason: NAUSEA Oxycodone HCl (Roxicodone -) 5 mg PO Q4H PRN PRN Reason: PAIN LEVEL 7 - 10 Last Admin: 08/01/19 19:18 Dose: 5 mg Rivaroxaban (Xarelto) 20 mg PO DAILY@1800 [facility] Last Admin: 08/01/19 19:18 Dose: 20 mg Spironolactone (Aldactone -) 25 mg PO DAILY [facility] Last Admin: 08/01/19 11:00 Dose: 25 mg Tramadol HCl (Ultram -) 50 mg PO Q8H PRN PRN Reason: PAIN LEVEL 4 - 6 Last Admin: 07/28/19 21:55 Dose: 50 mg - Objective Vital Signs: Vital Signs Temperature 98.8 F 08/01/19 16:35 Pulse Rate 102 H 08/01/19 16:35 Respiratory Rate 22 H 08/01/19 16:35 Blood Pressure 138/68 08/01/19 16:35 O2 Sat by Pulse Oximetry (%) 94 L 08/01/19 09:00 Vital Signs Period Temp Pulse Resp BP Sys/Blas Pulse Ox Last 24 Hr 97.3 F-101.2 F 85-102 17-22 126-146/55-76 94-95 Constitutional: Yes: Well Nourished, No Distress, Calm Eyes: Yes: Conjunctiva Clear, EOM Intact HENT: Yes: Atraumatic, Normocephalic Neck: Yes: Supple, Trachea Midline Cardiovascular: Yes: Regular Rate and Rhythm, S1, S2 Respiratory: Yes: Regular, CTA Bilaterally Gastrointestinal: Yes: Normal Bowel Sounds, Soft, Tenderness (incisonal) ...Rectal Exam: Yes: Deferred Genitourinary: No: CVA Tenderness - Left, CVA Tenderness - Right Musculoskeletal: No: Muscle Pain, Muscle Weakness Extremities: No: Cool, Cyanosis Edema: No Peripheral Pulses WNL: Yes Peripheral Pulses: Left Radial: 2+, Right Radial: 2+, Left Doralis Pedis: 2+, Right Dorsalis Pedis: 2+, Left Femoral: 2+, Right Femoral: 2+ Wound/Incision: Yes: Clean/Dry, Well Approximated, [place] Removed, Draining, Reddened Neurological: Yes: Alert, Oriented Psychiatric: Yes: Alert, Oriented Labs: CBC, BMP 07/29/19 15:00 07/29/19 15:00 INR, PTT INR 1.23 (0.83-1.09) H 07/22/19 21:05 Problem List - Problems (1) Incarcerated right inguinal hernia Assessment/Plan: 79 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 Tolerating his diet complaining of right flank pain. Draining from the wound. Diet as tolerated Adequate analgesia OOB and ambulate wound culture sent Wound VAC Physical therapy evaluation for mobilization discharge at discretion of primary team Code(s): K40.30 - UNIL INGUINAL HERNIA, W OBST, W/O GANGR, NOT SPCF RECUR (2) CHF (congestive heart failure) Code(s): I50.9 - HEART FAILURE, UNSPECIFIED Qualifiers: Heart failure type: diastolic Heart failure chronicity: chronic Qualified Code(s): I50.32 - Chronic diastolic (congestive) heart failure (3) CKD (chronic kidney disease) Code(s): N18.9 - CHRONIC KIDNEY DISEASE, UNSPECIFIED Qualifiers: Chronic kidney disease stage: stage 3 (moderate) Qualified Code(s): N18.3 - Chronic kidney disease, stage 3 (moderate) (4) Small bowel obstruction Code(s): K56.609 - UNSP INTESTNL OBST, UNSP TO PARTIAL VERSUS COMPLETE OBST (5) Atrial fibrillation Code(s): I48.91 - UNSPECIFIED ATRIAL FIBRILLATION Qualifiers: Atrial fibrillation type: persistent Qualified Code(s): I48.1 - Persistent atrial fibrillation
[2019-08-01] MEDS: traMADol HCL 50 MG TABLET PO PRN (21:35)
[2019-08-01] MEDS: ATORVASTATIN CA 20 MG TABLET (FP) PO SCH (23:02)
[2019-08-02 09:00] LABS: BASO % 0.5 % (0-2.0); EOS % 2.6 % (0-4.5); HEMATOCRIT 31.9 % (35.4-49); HEMOGLOBIN 10.5 GM/dL (11.7-16.9); LYMPH % 8.8 % (8-40); MCH 28.9 pg (25.7-33.7); MCHC 32.9 g/dl (32.0-35.9); MEAN CELL VOLUME 87.7 fl (80-96); MEAN PLT VOLUME 7.4 fl (7.5-11.1); NEUT % 83.1 % (42.8-82.8); PLATELET COUNT 297 K/MM3 (134-434); RBC 3.63 M/mm3 (4.00-5.60); RDW 15.3 % (11.9-15.9)
[2019-08-02] MEDS ORDERED: DEXTROSE 5%-WATER - 50 ML IVPB ONE (10:45)
[2019-08-02] MEDS ORDERED: cefTRIAXone SODIUM 1 GM VIAL ONE (10:45)
[2019-08-02] MEDS: DOCUSATE SODIUM 100 MG CAPSULE (FP) PO SCH (10:49)
[2019-08-02] MEDS: metoPROLOL SUCCINATE 25 MG TAB.SR.24H (FP) PO SCH (10:49)
[2019-08-02] MEDS: SPIRONOLACTONE 25 MG TABLET (FP) PO SCH (10:50)
[2019-08-02] MEDS: CEFTRIAXONE 1 GM in DEXTROSE 5%-WATER - 50 ML IVPB SCH (10:50)
[2019-08-02] MEDS: ALLOPURINOL 100 MG TABLET (FP) PO SCH (10:50)
[2019-08-02] MEDS: traMADol HCL 50 MG TABLET PO PRN (10:52)
--- NOTE | 2019-08-02 12:47 | PN ---
Progress Note, Physician History of Present Illness: Reports RLQ pain and tenderness improving after wound vac placed for wound drainage. - Current Medication List Current Medications: Active Medications Acetaminophen (Tylenol -) 650 mg PO Q4H PRN PRN Reason: FEVER Last Admin: 08/01/19 19:18 Dose: 650 mg Allopurinol (Zyloprim -) 100 mg PO DAILY [facility] Last Admin: 08/02/19 10:50 Dose: 100 mg Atorvastatin Calcium (Lipitor -) 20 mg PO HS [facility] Last Admin: 08/01/19 23:02 Dose: 20 mg Docusate Sodium (Colace -) 100 mg PO DAILY [facility] Last Admin: 08/02/19 10:49 Dose: 100 mg Ceftriaxone Sodium 1 gm/ (Dextrose) 50 mls @ 100 mls/hr IVPB DAILY [facility]; Protocol Last Admin: 08/02/19 10:50 Dose: 100 mls/hr Metoprolol Succinate (Toprol Xl -) 25 mg PO DAILY [facility] Last Admin: 08/02/19 10:49 Dose: 25 mg Ondansetron HCl (Zofran Injection) 4 mg IVPUSH Q8H PRN PRN Reason: NAUSEA Oxycodone HCl (Roxicodone -) 5 mg PO Q4H PRN PRN Reason: PAIN LEVEL 7 - 10 Last Admin: 08/01/19 19:18 Dose: 5 mg Rivaroxaban (Xarelto) 20 mg PO DAILY@1800 [facility] Last Admin: 08/01/19 19:18 Dose: 20 mg Spironolactone (Aldactone -) 25 mg PO DAILY [facility] Last Admin: 08/02/19 10:50 Dose: 25 mg Tramadol HCl (Ultram -) 50 mg PO Q8H PRN PRN Reason: PAIN LEVEL 4 - 6 Last Admin: 08/02/19 10:52 Dose: 50 mg - Objective Vital Signs: Vital Signs Temperature 98.0 F 08/02/19 11:00 Pulse Rate 72 08/02/19 11:00 Respiratory Rate 17 08/02/19 11:00 Blood Pressure 119/73 08/02/19 11:00 O2 Sat by Pulse Oximetry (%) 94 L 08/01/19 21:00 Constitutional: Yes: No Distress, Calm Neck: Yes: Supple Cardiovascular: Yes: Pulse Irregular Respiratory: Yes: Regular, Diminished Gastrointestinal: Yes: Normal Bowel Sounds, Soft, Tenderness (RLQ wound vac in place) Edema: No Integumentary: Yes: Venous Stasis Changes Wound/Incision: Yes: Draining (Wound vac in place) Labs: CBC, BMP 08/02/19 07:15 07/29/19 15:00 INR, PTT INR 1.23 (0.83-1.09) H 07/22/19 21:05 Problem List - Problems (1) CHF (congestive heart failure) Code(s): I50.9 - HEART FAILURE, UNSPECIFIED Qualifiers: Heart failure type: diastolic Heart failure chronicity: chronic Qualified Code(s): I50.32 - Chronic diastolic (congestive) heart failure (2) CKD (chronic kidney disease) Code(s): N18.9 - CHRONIC KIDNEY DISEASE, UNSPECIFIED Qualifiers: Chronic kidney disease stage: stage 3 (moderate) Qualified Code(s): N18.3 - Chronic kidney disease, stage 3 (moderate) (3) Small bowel obstruction Code(s): K56.609 - UNSP INTESTNL OBST, UNSP TO PARTIAL VERSUS COMPLETE OBST (4) Atrial fibrillation Code(s): I48.91 - UNSPECIFIED ATRIAL FIBRILLATION Qualifiers: Atrial fibrillation type: persistent Qualified Code(s): I48.1 - Persistent atrial fibrillation (5) Coronary artery disease Code(s): I25.10 - ATHSCL HEART DISEASE OF [place] CORONARY ARTERY W/O ANG PCTRS Qualifiers: Coronary Disease-Associated Artery/Lesion type: [place] artery [place] vs. transplanted heart: [place] heart Associated angina: without angina Qualified Code(s): I25.10 - Atherosclerotic heart disease of [place] coronary artery without angina pectoris (6) Hyperlipidemia Code(s): E78.5 - HYPERLIPIDEMIA, UNSPECIFIED Qualifiers: Hyperlipidemia type: pure hypercholesterolemia Qualified Code(s): E78.00 - Pure hypercholesterolemia, unspecified; E78.0 - Pure hypercholesterolemia (7) Hypertension Code(s): I10 - ESSENTIAL (PRIMARY) HYPERTENSION Qualifiers: Hypertension type: essential hypertension Qualified Code(s): I10 - Essential (primary) hypertension (8) S/P CABG (coronary artery bypass graft) Code(s): Z95.1 - PRESENCE OF AORTOCORONARY BYPASS GRAFT (9) Chronic anticoagulation Code(s): Z79.01 - UNBUNDLER (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 Transition zone - distal ileum within R sided inguinal hernia sac. Calcifications of L inguinal hernia sac. Some fluid in hernia sacs, in peritoneal cavity.) 1. SBO referable to recurrent incarcerated/strangulated right inguinal hernia with mesh s/p repair (removal of right inguinal hernia mesh, segmental resection of small bowel) wound infection 2. CAD s/p CABG 3. Persistent AF 4. Chronic venous insufficiency 5. Carotid stenosis 6. Gout 7. Acute on ckd resolving to baseline PLAN: 1. Continue post op care, wound vac placed, analgesia as needed, abx resumed 2. Continue Allopurinol 100 mg QD, Lipitor 20 mg QD, Xarelto 20 mg QD, Aldactone 25 mg QD and Toprol XL 25 mg QD for rate-control. Demadex held 3. DVT prophylaxis, compression therapy and PT as tolerated 4. 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 Jairo Aldrich at [facility] upon discharge
--- NOTE | 2019-08-02 13:37 | PN ---
Progress Note, Physician Chief Complaint: Reccurent incarcerated right inguinal hernia with SBO History of Present Illness: 79 yo male PMH Afib on eliquis, HTN, CABG, CHF presented to the ED with three days of lower abdominal pain, nausea and vomiting. He reports that the pain began on Monday after eating a sandwhich and has been worsening since its onset. 8/10 intensity, no radiation, sharp. He has been stable post operatively and has resumed GI fucntion. VAC dressing was applied and in draining well. - Current Medication List Current Medications: Active Medications Acetaminophen (Tylenol -) 650 mg PO Q4H PRN PRN Reason: FEVER Last Admin: 08/01/19 19:18 Dose: 650 mg Allopurinol (Zyloprim -) 100 mg PO DAILY [facility] Last Admin: 08/02/19 10:50 Dose: 100 mg Atorvastatin Calcium (Lipitor -) 20 mg PO HS [facility] Last Admin: 08/01/19 23:02 Dose: 20 mg Docusate Sodium (Colace -) 100 mg PO DAILY [facility] Last Admin: 08/02/19 10:49 Dose: 100 mg Ceftriaxone Sodium 1 gm/ (Dextrose) 50 mls @ 100 mls/hr IVPB DAILY [facility]; Protocol Last Admin: 08/02/19 10:50 Dose: 100 mls/hr Metronidazole (Flagyl 500mg Premixed Ivpb -) 500 mg in 100 mls @ 100 mls/hr IVPB Q8H-IV ENDER Stop: 08/03/19 13:44 Metoprolol Succinate (Toprol Xl -) 25 mg PO DAILY [facility] Last Admin: 08/02/19 10:49 Dose: 25 mg Ondansetron HCl (Zofran Injection) 4 mg IVPUSH Q8H PRN PRN Reason: NAUSEA Oxycodone HCl (Roxicodone -) 5 mg PO Q4H PRN PRN Reason: PAIN LEVEL 7 - 10 Last Admin: 08/01/19 19:18 Dose: 5 mg Rivaroxaban (Xarelto) 20 mg PO DAILY@1800 [facility] Last Admin: 08/01/19 19:18 Dose: 20 mg Spironolactone (Aldactone -) 25 mg PO DAILY [facility] Last Admin: 08/02/19 10:50 Dose: 25 mg Tramadol HCl (Ultram -) 50 mg PO Q8H PRN PRN Reason: PAIN LEVEL 4 - 6 Last Admin: 08/02/19 10:52 Dose: 50 mg - Objective Vital Signs: Vital Signs Temperature 98.0 F 08/02/19 11:00 Pulse Rate 72 08/02/19 11:00 Respiratory Rate 17 08/02/19 11:00 Blood Pressure 119/73 08/02/19 11:00 O2 Sat by Pulse Oximetry (%) 94 L 08/01/19 21:00 Vital Signs Period Temp Pulse Resp BP Sys/Blas Pulse Ox Last 24 Hr 97.8 F-98.8 F 68-102 17-300 102-138/54-73 94 Constitutional: Yes: Well Nourished, No Distress, Calm Eyes: Yes: Conjunctiva Clear, EOM Intact HENT: Yes: Atraumatic, Normocephalic Neck: Yes: Supple, Trachea Midline Cardiovascular: Yes: Regular Rate and Rhythm, S1, S2 Respiratory: Yes: Regular, CTA Bilaterally Gastrointestinal: Yes: Normal Bowel Sounds, Soft ...Rectal Exam: Yes: Deferred Genitourinary: No: CVA Tenderness - Left, CVA Tenderness - Right Musculoskeletal: No: Muscle Pain, Muscle Weakness Extremities: No: Cool, Cyanosis Edema: Yes Edema: LLE: 2+, RLE: 2+ Peripheral Pulses WNL: Yes Peripheral Pulses: Left Radial: 2+, Right Radial: 2+, Left Doralis Pedis: 2+, Right Dorsalis Pedis: 2+, Left Femoral: 2+, Right Femoral: 2+ Integumentary: No: Jaundice, Rash Wound/Incision: Yes: Clean/Dry, Draining, Unapproximated Neurological: Yes: Alert, Oriented Psychiatric: Yes: Alert, Oriented Labs: CBC, BMP 08/02/19 07:15 07/29/19 15:00 INR, PTT INR 1.23 (0.83-1.09) H 07/22/19 21:05 Problem List - Problems (1) Incarcerated right inguinal hernia Assessment/Plan: 79 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 Tolerating his diet complaining of right flank pain. Draining from the wound. WBC is up to 15K Diet as tolerated Adequate analgesia OOB and ambulate f/u wound culture Wound VAC fucntioning minimal draining VAC dressing: size small granulofoam, change q3day, f/u in wound care center May be discharged on Augmentin and Flaygl but will defer to ID Physical therapy evaluation for mobilization discharge at discretion of primary team Code(s): K40.30 - UNIL INGUINAL HERNIA, W OBST, W/O GANGR, NOT SPCF RECUR (2) CHF (congestive heart failure) Code(s): I50.9 - HEART FAILURE, UNSPECIFIED Qualifiers: Heart failure type: diastolic Heart failure chronicity: chronic Qualified Code(s): I50.32 - Chronic diastolic (congestive) heart failure (3) CKD (chronic kidney disease) Code(s): N18.9 - CHRONIC KIDNEY DISEASE, UNSPECIFIED Qualifiers: Chronic kidney disease stage: stage 3 (moderate) Qualified Code(s): N18.3 - Chronic kidney disease, stage 3 (moderate) (4) Small bowel obstruction Code(s): K56.609 - UNSP INTESTNL OBST, UNSP TO PARTIAL VERSUS COMPLETE OBST (5) Atrial fibrillation Code(s): I48.91 - UNSPECIFIED ATRIAL FIBRILLATION Qualifiers: Atrial fibrillation type: persistent Qualified Code(s): I48.1 - Persistent atrial fibrillation
--- NOTE | 2019-08-02 15:24 | DS ---
Physical Examination Vital Signs: Vital Signs Temperature 97.8 F 08/02/19 15:08 Pulse Rate 79 08/02/19 15:08 Respiratory Rate 18 08/02/19 15:08 Blood Pressure 154/88 08/02/19 15:08 O2 Sat by Pulse Oximetry (%) 94 L 08/01/19 21:00 Constitutional: Yes: No Distress, Calm Eyes: Yes: Conjunctiva Clear HENT: Yes: Atraumatic Cardiovascular: Yes: Regular Rate and Rhythm Respiratory: Yes: Regular, CTA Bilaterally Gastrointestinal: Yes: Normal Bowel Sounds, Soft Musculoskeletal: Yes: Muscle Weakness Extremities: Yes: WNL Edema: No Wound/Incision: Yes: Dressing Dry and Intact, Other (wound vac noted to RLQ) Neurological: Yes: Alert, Oriented Psychiatric: Yes: Alert, Oriented Labs: CBC, BMP 08/02/19 07:15 07/29/19 15:00 Discharge Summary Reason For Visit: SMALL BOWEL OBSTRUCTION Current Active Problems CHF (congestive heart failure) (Acute) CKD (chronic kidney disease) (Acute) Chronic anticoagulation (Acute) Incarcerated right inguinal hernia (Acute) Small bowel obstruction (Acute) UTI (urinary tract infection) (Acute) Hospital Course: Mr. Arevalo is a 79 y/o M with hx afib on eliquis, HTN, CABG, CHF p/w three days of lower abdominal pain, N, V. He reports that the pain began on Monday after eating a sandwhich and has been worsening since its onset. 8/10 intensity, no radiation, sharp. He endorses nausea that also began on Monday, as well as 3x NBNB vomiting today. He reports that he has maintained a liquid diet since it's onset as he has been nauseated and concerned that he would vomit with solid food. He reports that the episodes of emesis today were after attempting to eat crackers. Hernia repair in 1992. Patient was noted to have saturated dressing, surgery re-called. Dressing and wound opened and noted with pus. Wound culture collected and wound vac placed. Restarted on IV antibiotics. Condition: Stable - Instructions Diet, Activity, Other Instructions: Postoperative instructions: You had a right inguinal hernia repair with segmental ressection of small bowel on 07/24/[address] Xavier Barone of [facility]. Activity: Resume your usual activities gradually, but no heavy exertion or lifting more than 10-15 pounds for 4-6 weeks. Remove dressings 48 hours after surgery, if they are not already off. You may shower daily starting then, just pat the incision areas dry. No bath or swimming until skin incisions have healed. [place] should not need to be recovered with any dressings, unless you have been told otherwise. Eat lightly at first, but advance to your usual diet as tolerated. Pain: For pain, you may use and alternate Tylenol (acetaminophen) 1-2 pills and/ or ibuprofen 200 mg (1-3 pills) every 6 hours each as needed; this means that you can take one OR the other at 3-hour intervals. If you are prescribed a Tylenol/narcotic combination for severe pain, use it instead of plain Tylenol as needed and switch back when your pain starts decreasing. Do not take more than 4000 mg of acetaminophen in a day. Take medications as prescribed or indicated on the labeling. Follow-up: Call Dr. Barone' office at [phone] to make your postop appointment (Monday in approximately 2 weeks after surgery as advised). Clinic is held in the [facility] on the fifth floor of [facility]. Call the office if you have: * increasing pain not responsive to pain medication * fever of 101F or higher * unusual or increasing bleeding or drainage from wounds * increasing redness or swelling at wound sites Also, see your primary medical doctor within 1-2 weeks. Referrals: Xavier Barone MD [Staff Physician] - Jairo Aldrich [Non Staff, Medical] - Disposition: [facility] - Home Medications Comprehensive Discharge Medication List: Ambulatory Orders Rivaroxaban [Xarelto] 15 mg PO DAILY 09/11/15 Atorvastatin Ca [Lipitor] 20 mg PO HS 10/10/18 Allopurinol [Zyloprim -] 100 mg PO DAILY #30 tablet MDD 1 07/26/19 Spironolactone [Aldactone -] 25 mg PO DAILY #30 tablet MDD 1 07/26/19 Nitrofurantoin Monohyd/M-Cryst [Macrobid -] 100 mg PO BID #14 capsule 08/01/19
--- NOTE | 2019-08-02 15:47 | PN ---
Progress Note, Physician History of Present Illness: ISOLATED TEMP SPIKE AND ELEVATED WBC NOTED SURGICAL WOUND OPENED; PURULENT FLUID DRAINED VAC PLACED NO C/O ABDOMINAL PAIN NO N/V + BM - Current Medication List Current Medications: Active Medications Acetaminophen (Tylenol -) 650 mg PO Q4H PRN PRN Reason: FEVER Last Admin: 08/01/19 19:18 Dose: 650 mg Allopurinol (Zyloprim -) 100 mg PO DAILY [facility] Last Admin: 08/02/19 10:50 Dose: 100 mg Atorvastatin Calcium (Lipitor -) 20 mg PO HS [facility] Last Admin: 08/01/19 23:02 Dose: 20 mg Docusate Sodium (Colace -) 100 mg PO DAILY [facility] Last Admin: 08/02/19 10:49 Dose: 100 mg Ceftriaxone Sodium 1 gm/ (Dextrose) 50 mls @ 100 mls/hr IVPB DAILY [facility]; Protocol Last Admin: 08/02/19 10:50 Dose: 100 mls/hr Metronidazole (Flagyl 500mg Premixed Ivpb -) 500 mg in 100 mls @ 100 mls/hr IVPB Q8H-IV [facility] Stop: 08/03/19 13:44 Metoprolol Succinate (Toprol Xl -) 25 mg PO DAILY [facility] Last Admin: 08/02/19 10:49 Dose: 25 mg Ondansetron HCl (Zofran Injection) 4 mg IVPUSH Q8H PRN PRN Reason: NAUSEA Oxycodone HCl (Roxicodone -) 5 mg PO Q4H PRN PRN Reason: PAIN LEVEL 7 - 10 Last Admin: 08/01/19 19:18 Dose: 5 mg Rivaroxaban (Xarelto) 20 mg PO DAILY@1800 [facility] Last Admin: 08/01/19 19:18 Dose: 20 mg Spironolactone (Aldactone -) 25 mg PO DAILY [facility] Last Admin: 08/02/19 10:50 Dose: 25 mg Tramadol HCl (Ultram -) 50 mg PO Q8H PRN PRN Reason: PAIN LEVEL 4 - 6 Last Admin: 08/02/19 10:52 Dose: 50 mg - Objective Vital Signs: Vital Signs Temperature 97.8 F 08/02/19 15:08 Pulse Rate 79 08/02/19 15:08 Respiratory Rate 18 08/02/19 15:08 Blood Pressure 154/88 08/02/19 15:08 O2 Sat by Pulse Oximetry (%) 94 L 08/01/19 21:00 Constitutional: Yes: No Distress Cardiovascular: Yes: Regular Rate and Rhythm, S1, S2 Respiratory: Yes: CTA Bilaterally Gastrointestinal: Yes: Normal Bowel Sounds, Soft, Tenderness, Other (+ TENDERNESS AROUND VAC BROWN FLUID IN DRAIN) Edema: Yes Integumentary: Yes: Venous Stasis Changes Labs: CBC, BMP 08/02/19 07:15 07/29/19 15:00 INR, PTT INR 1.23 (0.83-1.09) H 07/22/19 21:05 Assessment/Plan S/P TEMP; LEUKOCYTOSIS WOUND DEBRIDEMENT S/P REPAIR INCARCERATED HERNIA + E COLI/ VRE URINE AWAIT WOUND C/S BLOOD C/S CONTINUE CEFTRIAXONE/ FLAGYL REPEAT CBC AM
[2019-08-02] MEDS: RIVAROXABAN 20 MG TABLET PO SCH (17:18)
[2019-08-02] MEDS: ACETAMINOPHEN 325 MG TABLET (FP) PO PRN (17:18)
--- NOTE | 2019-08-02 19:09 | PN ---
Progress Note (short form) - Note Progress Note: Will repeat CBC in AM to monitor WBC. If trending down, afebrile, and no acute events during night can consider for discharge in AM. Problem List - Problems (1) CKD (chronic kidney disease) Code(s): N18.9 - CHRONIC KIDNEY DISEASE, UNSPECIFIED Qualifiers: Chronic kidney disease stage: stage 3 (moderate) Qualified Code(s): N18.3 - Chronic kidney disease, stage 3 (moderate) (2) Small bowel obstruction Code(s): K56.609 - UNSP INTESTNL OBST, UNSP TO PARTIAL VERSUS COMPLETE OBST (3) Atrial fibrillation Code(s): I48.91 - UNSPECIFIED ATRIAL FIBRILLATION Qualifiers: Atrial fibrillation type: persistent Qualified Code(s): I48.1 - Persistent atrial fibrillation (4) Hyperlipidemia Code(s): E78.5 - HYPERLIPIDEMIA, UNSPECIFIED Qualifiers: Hyperlipidemia type: pure hypercholesterolemia Qualified Code(s): E78.00 - Pure hypercholesterolemia, unspecified; E78.0 - Pure hypercholesterolemia
[2019-08-02] MEDS: ATORVASTATIN CA 20 MG TABLET (FP) PO SCH (21:23)
[2019-08-03 08:53] LABS: HEMATOCRIT 33.4 % (35.4-49); HEMOGLOBIN 11.1 GM/dL (11.7-16.9); MCH 29.3 pg (25.7-33.7); MCHC 33.4 g/dl (32.0-35.9); MEAN CELL VOLUME 87.8 fl (80-96); MEAN PLT VOLUME 7.2 fl (7.5-11.1); PLATELET COUNT 414 K/MM3 (134-434); RDW 15.1 % (11.9-15.9); WHITE BLOOD COUNT 8.6 K/mm3 (4.0-10.0)
[2019-08-03 09:10] LABS: BILIRUBIN,TOTAL 0.6 mg/dL (0.2-1); BLOOD UREA NITROGEN 29.1 mg/dL (7-18); CALCIUM 8.4 mg/dL (8.5-10.1); CREATININE 1.1 mg/dL (0.55-1.3); POTASSIUM 4.5 mmol/L (3.5-5.1); TOT PROT 6.5 g/dl (6.4-8.2)
[2019-08-03] MEDS ORDERED: cefTRIAXone SODIUM 1 GM VIAL ONE (09:49)
[2019-08-03] MEDS ORDERED: DEXTROSE 5%-WATER - 50 ML IVPB ONE (09:50)
[2019-08-03] MEDS: SPIRONOLACTONE 25 MG TABLET (FP) PO SCH (09:57)
[2019-08-03] MEDS: DOCUSATE SODIUM 100 MG CAPSULE (FP) PO SCH (09:57)
[2019-08-03] MEDS: metoPROLOL SUCCINATE 25 MG TAB.SR.24H (FP) PO SCH (09:57)
[2019-08-03] MEDS: ALLOPURINOL 100 MG TABLET (FP) PO SCH (09:57)
[2019-08-03] MEDS: CEFTRIAXONE 1 GM in DEXTROSE 5%-WATER - 50 ML IVPB SCH (09:57)
[2019-08-03] MEDS ORDERED: AMMONIUM LACTATE 12% LOTION 225 GM BOTTLE TP PRN (12:51)
--- NOTE | 2019-08-03 13:01 | PN ---
Progress Note, Physician Chief Complaint: AWAKE ALERT NAD EVENTS AND NOTES REVIEWED - Current Medication List Current Medications: Active Medications Acetaminophen (Tylenol -) 650 mg PO Q4H PRN PRN Reason: FEVER Last Admin: 08/02/19 17:18 Dose: 650 mg Allopurinol (Zyloprim -) 100 mg PO DAILY [facility] Last Admin: 08/03/19 09:57 Dose: 100 mg Atorvastatin Calcium (Lipitor -) 20 mg PO HS [facility] Last Admin: 08/02/19 21:23 Dose: 20 mg Docusate Sodium (Colace -) 100 mg PO DAILY [facility] Last Admin: 08/03/19 09:57 Dose: 100 mg Emollient Ointment (Aquaphor -) 1 applic TP BID [facility] Ceftriaxone Sodium 1 gm/ (Dextrose) 50 mls @ 100 mls/hr IVPB DAILY [facility]; Protocol Last Admin: 08/03/19 09:57 Dose: 100 mls/hr Metronidazole (Flagyl 500mg Premixed Ivpb -) 500 mg in 100 mls @ 100 mls/hr IVPB Q8H-IV [facility] Stop: 08/03/19 13:44 Last Admin: 08/03/19 10:36 Dose: 100 mls/hr Lactic Acid (Lac-Hydrin 12) 1 applic TP BID PRN PRN Reason: DRY SKIN Metoprolol Succinate (Toprol Xl -) 25 mg PO DAILY [facility] Last Admin: 08/03/19 09:57 Dose: 25 mg Ondansetron HCl (Zofran Injection) 4 mg IVPUSH Q8H PRN PRN Reason: NAUSEA Oxycodone HCl (Roxicodone -) 5 mg PO Q4H PRN PRN Reason: PAIN LEVEL 7 - 10 Last Admin: 08/01/19 19:18 Dose: 5 mg Rivaroxaban (Xarelto) 20 mg PO DAILY@1800 [facility] Last Admin: 08/02/19 17:18 Dose: 20 mg Spironolactone (Aldactone -) 25 mg PO DAILY [facility] Last Admin: 08/03/19 09:57 Dose: 25 mg Tramadol HCl (Ultram -) 50 mg PO Q8H PRN PRN Reason: PAIN LEVEL 4 - 6 Last Admin: 08/02/19 10:52 Dose: 50 mg - Objective Vital Signs: Vital Signs Temperature 97.7 F 08/03/19 08:03 Pulse Rate 70 08/03/19 08:03 Respiratory Rate 15 08/03/19 08:03 Blood Pressure 140/80 08/03/19 08:03 O2 Sat by Pulse Oximetry (%) 96 08/03/19 09:00 Constitutional: Yes: Mild Distress Cardiovascular: Yes: Pulse Irregular Respiratory: Yes: Regular Gastrointestinal: Yes: Soft, Other (DRAINING WOUND VAC LOWER ABD WOUND) Musculoskeletal: Yes: Muscle Weakness, Other Edema: Yes Edema: LLE: Trace, RLE: Trace Integumentary: Yes: Rash, Venous Stasis Changes Wound/Incision: Yes: Other (WOUND VAC ABD WOUND, LEGS DRY FLAKY LOWER EXTREMITY WITH CHRONIC CHANGES POOR HYGEINE) Neurological: Yes: Pre-Existing Deficit ...Motor Strength: LLE, RLE Psychiatric: Yes: Other Labs: CBC, BMP 08/03/19 07:04 08/03/19 07:04 INR, PTT INR 1.23 (0.83-1.09) H 07/22/19 21:05 Problem List - Problems (1) CHF (congestive heart failure) Code(s): I50.9 - HEART FAILURE, UNSPECIFIED Qualifiers: Heart failure type: diastolic Heart failure chronicity: chronic Qualified Code(s): I50.32 - Chronic diastolic (congestive) heart failure (2) CKD (chronic kidney disease) Code(s): N18.9 - CHRONIC KIDNEY DISEASE, UNSPECIFIED Qualifiers: Chronic kidney disease stage: stage 3 (moderate) Qualified Code(s): N18.3 - Chronic kidney disease, stage 3 (moderate) (3) Incarcerated right inguinal hernia Code(s): K40.30 - UNIL INGUINAL HERNIA, W OBST, W/O GANGR, NOT SPCF RECUR (4) Atrial fibrillation Code(s): I48.91 - UNSPECIFIED ATRIAL FIBRILLATION Qualifiers: Atrial fibrillation type: persistent Qualified Code(s): I48.1 - Persistent atrial fibrillation (5) Edema Code(s): R60.9 - EDEMA, UNSPECIFIED Qualifiers: Edema type: unspecified Qualified Code(s): R60.9 - Edema, unspecified (6) Hyperlipidemia Code(s): E78.5 - HYPERLIPIDEMIA, UNSPECIFIED Qualifiers: Hyperlipidemia type: pure hypercholesterolemia Qualified Code(s): E78.00 - Pure hypercholesterolemia, unspecified; E78.0 - Pure hypercholesterolemia (7) Hypertension Code(s): I10 - ESSENTIAL (PRIMARY) HYPERTENSION Qualifiers: Hypertension type: essential hypertension Qualified Code(s): I10 - Essential (primary) hypertension (8) S/P CABG (coronary artery bypass graft) Code(s): Z95.1 - PRESENCE OF AORTOCORONARY BYPASS GRAFT (9) Venous (peripheral) insufficiency Code(s): I87.2 - VENOUS INSUFFICIENCY (CHRONIC) (PERIPHERAL) Assessment/Plan IV ABX PER ID WOUND VAC PLACED TO ABDOMINAL WOUND WITH BROWN DISCHARGE APPLY LOTIONS LOWER EXTREMITY PT EVAL APPRECIATED PODIATRY EVAL SNF
[2019-08-03] MEDS: RIVAROXABAN 20 MG TABLET PO SCH (17:30)
[2019-08-03] MEDS: traMADol HCL 50 MG TABLET PO PRN (18:02)
[2019-08-03] MEDS: MINERAL OIL/PET HY-PHL TOPICAL OINTMENT 454 GM JAR TP SCH (21:48)
[2019-08-03] MEDS: ATORVASTATIN CA 20 MG TABLET (FP) PO SCH (21:49)
[2019-08-04] MEDS ORDERED: cefTRIAXone SODIUM 1 GM VIAL ONE (11:32)
[2019-08-04] MEDS ORDERED: DEXTROSE 5%-WATER - 50 ML IVPB ONE (11:32)
[2019-08-04] MEDS: CEFTRIAXONE 1 GM in DEXTROSE 5%-WATER - 50 ML IVPB SCH (11:39)
[2019-08-04] MEDS: SPIRONOLACTONE 25 MG TABLET (FP) PO SCH (11:40)
[2019-08-04] MEDS: metoPROLOL SUCCINATE 25 MG TAB.SR.24H (FP) PO SCH (11:40)
[2019-08-04] MEDS: ALLOPURINOL 100 MG TABLET (FP) PO SCH (11:40)
[2019-08-04] MEDS: DOCUSATE SODIUM 100 MG CAPSULE (FP) PO SCH (11:40)
[2019-08-04] MEDS: MINERAL OIL/PET HY-PHL TOPICAL OINTMENT 454 GM JAR TP SCH ×2 (11:42→22:25)
--- NOTE | 2019-08-04 15:38 | PN ---
Progress Note (short form) - Note Progress Note: PAPERWORK COMPLETE DC PLANNING SNF Problem List - Problems (1) CHF (congestive heart failure) Code(s): I50.9 - HEART FAILURE, UNSPECIFIED Qualifiers: Heart failure type: diastolic Heart failure chronicity: chronic Qualified Code(s): I50.32 - Chronic diastolic (congestive) heart failure (2) CKD (chronic kidney disease) Code(s): N18.9 - CHRONIC KIDNEY DISEASE, UNSPECIFIED Qualifiers: Chronic kidney disease stage: stage 3 (moderate) Qualified Code(s): N18.3 - Chronic kidney disease, stage 3 (moderate) (3) Incarcerated right inguinal hernia Code(s): K40.30 - UNIL INGUINAL HERNIA, W OBST, W/O GANGR, NOT SPCF RECUR (4) Atrial fibrillation Code(s): I48.91 - UNSPECIFIED ATRIAL FIBRILLATION Qualifiers: Atrial fibrillation type: persistent Qualified Code(s): I48.1 - Persistent atrial fibrillation (5) Edema Code(s): R60.9 - EDEMA, UNSPECIFIED Qualifiers: Edema type: unspecified Qualified Code(s): R60.9 - Edema, unspecified (6) Hyperlipidemia Code(s): E78.5 - HYPERLIPIDEMIA, UNSPECIFIED Qualifiers: Hyperlipidemia type: pure hypercholesterolemia Qualified Code(s): E78.00 - Pure hypercholesterolemia, unspecified; E78.0 - Pure hypercholesterolemia (7) Hypertension Code(s): I10 - ESSENTIAL (PRIMARY) HYPERTENSION Qualifiers: Hypertension type: essential hypertension Qualified Code(s): I10 - Essential (primary) hypertension (8) S/P CABG (coronary artery bypass graft) Code(s): Z95.1 - PRESENCE OF AORTOCORONARY BYPASS GRAFT (9) Venous (peripheral) insufficiency Code(s): I87.2 - VENOUS INSUFFICIENCY (CHRONIC) (PERIPHERAL)
[2019-08-04] MEDS: RIVAROXABAN 20 MG TABLET PO SCH (17:43)
[2019-08-04] MEDS: oxyCODONE HCL 5 MG TABLET PO PRN ×2 (17:43→22:02)
[2019-08-04] MEDS: ATORVASTATIN CA 20 MG TABLET (FP) PO SCH (22:02)
[2019-08-05] MEDS ORDERED: cefTRIAXone SODIUM 1 GM VIAL ONE (08:49)
[2019-08-05] MEDS ORDERED: DEXTROSE 5%-WATER - 50 ML IVPB ONE ×2 (08:49→17:38)
--- NOTE | 2019-08-05 10:30 | CONSULT ---
Consult Consult Specialty:: Podiatry Reason for Consultation:: Mycotic nails and dry skin both feet - History Source History Provided By: Patient, Medical Record - Past Medical History Cardio/Vascular: Yes: AFIB, CAD, CHF, HTN Musculoskeletal: Yes: Other (pvd/venous statsis b/l) - Past Surgical History Past Surgical History: Yes: CABG, Vein Stripping/Ligation (left leg) - Alcohol/Substance Use Hx Alcohol Use: No History of Substance Use: reports: None - Smoking History Smoking history: Current every day smoker Have you smoked in the past 12 months: No Aproximately how many cigarettes per day: 1 - Social History History of Recent Travel: No Home Medications - Allergies Allergies/Adverse Reactions: Allergies Allergy/AdvReac Type Severity Reaction Status Date / Time No Known Allergies Allergy Verified 01/03/17 13:19 - Home Medications Home Medications: Ambulatory Orders Rivaroxaban [Xarelto] 15 mg PO DAILY 09/11/15 Atorvastatin Ca [Lipitor] 20 mg PO HS 10/10/18 Allopurinol [Zyloprim -] 100 mg PO DAILY #30 tablet MDD 1 07/26/19 Spironolactone [Aldactone -] 25 mg PO DAILY #30 tablet MDD 1 07/26/19 Nitrofurantoin Monohyd/M-Cryst [Macrobid -] 100 mg PO BID #14 capsule 08/01/19 Physical Exam Vital Signs: Vital Signs Temperature 98 F 08/04/19 23:00 Pulse Rate 78 08/04/19 23:00 Respiratory Rate 20 08/04/19 23:00 Blood Pressure 130/68 08/04/19 23:00 O2 Sat by Pulse Oximetry (%) 96 08/04/19 09:00 Extremities: Yes: Other (+dressing right leg, +onychomyosis x 10, +xerosis b/l lower extremities, no wounds on feet,) Labs: CBC, BMP 08/03/19 07:04 08/03/19 07:04 Assessment/Plan onychomycosis xerosis Amonium lactae BID to feet and legs. Not to wound area. Vascular consult right leg wound and evaluate circulation. will follow.
[2019-08-05] MEDS: SPIRONOLACTONE 25 MG TABLET (FP) PO SCH (11:44)
[2019-08-05] MEDS: metoPROLOL SUCCINATE 25 MG TAB.SR.24H (FP) PO SCH (11:44)
[2019-08-05] MEDS: DOCUSATE SODIUM 100 MG CAPSULE (FP) PO SCH (11:44)
[2019-08-05] MEDS: MINERAL OIL/PET HY-PHL TOPICAL OINTMENT 454 GM JAR TP SCH ×2 (11:44→21:04)
[2019-08-05] MEDS: ALLOPURINOL 100 MG TABLET (FP) PO SCH (11:44)
[2019-08-05] MEDS: CEFTRIAXONE 1 GM in DEXTROSE 5%-WATER - 50 ML IVPB SCH (11:45)
--- NOTE | 2019-08-05 13:17 | PN ---
Progress Note, Physician History of Present Illness: Reports RLQ pain and tenderness improving after wound vac placed for wound drainage. - Current Medication List Current Medications: Active Medications Acetaminophen (Tylenol -) 650 mg PO Q4H PRN PRN Reason: FEVER Last Admin: 08/02/19 17:18 Dose: 650 mg Allopurinol (Zyloprim -) 100 mg PO DAILY [facility] Last Admin: 08/05/19 11:44 Dose: 100 mg Atorvastatin Calcium (Lipitor -) 20 mg PO HS [facility] Last Admin: 08/04/19 22:02 Dose: 20 mg Docusate Sodium (Colace -) 100 mg PO DAILY [facility] Last Admin: 08/05/19 11:44 Dose: 100 mg Emollient Ointment (Aquaphor -) 1 applic TP BID [facility] Last Admin: 08/05/19 11:44 Dose: 1 applic Ceftriaxone Sodium 1 gm/ (Dextrose) 50 mls @ 100 mls/hr IVPB DAILY [facility]; Protocol Last Admin: 08/05/19 11:45 Dose: 100 mls/hr Metronidazole (Flagyl 500mg Premixed Ivpb -) 500 mg in 100 mls @ 100 mls/hr IVPB Q8H-IV [facility] Last Admin: 08/05/19 11:44 Dose: 100 mls/hr Lactic Acid (Lac-Hydrin 12) 1 applic TP BID PRN PRN Reason: DRY SKIN Metoprolol Succinate (Toprol Xl -) 25 mg PO DAILY [facility] Last Admin: 08/05/19 11:44 Dose: 25 mg Ondansetron HCl (Zofran Injection) 4 mg IVPUSH Q8H PRN PRN Reason: NAUSEA Oxycodone HCl (Roxicodone -) 5 mg PO Q4H PRN PRN Reason: PAIN LEVEL 7 - 10 Last Admin: 08/04/19 22:02 Dose: 5 mg Rivaroxaban (Xarelto) 20 mg PO DAILY@1800 [facility] Last Admin: 08/04/19 17:43 Dose: 20 mg Spironolactone (Aldactone -) 25 mg PO DAILY [facility] Last Admin: 08/05/19 11:44 Dose: 25 mg Tramadol HCl (Ultram -) 50 mg PO Q8H PRN PRN Reason: PAIN LEVEL 4 - 6 Last Admin: 08/03/19 18:02 Dose: 50 mg - Objective Vital Signs: Vital Signs Temperature 97.5 F L 09/23/19 11:45 Pulse Rate 70 08/05/19 11:45 Respiratory Rate 19 08/05/19 11:45 Blood Pressure 145/81 08/05/19 11:45 O2 Sat by Pulse Oximetry (%) 96 08/04/19 09:00 Constitutional: Yes: No Distress, Calm Neck: Yes: Supple Cardiovascular: Yes: Pulse Irregular Respiratory: Yes: Regular, Diminished Gastrointestinal: Yes: Normal Bowel Sounds, Soft, Tenderness (RLQ wound vac in place) Edema: No Wound/Incision: Yes: [place] Intact, Other (Wound vac in place) Labs: CBC, BMP 08/03/19 07:04 08/03/19 07:04 INR, PTT INR 1.23 (0.83-1.09) H 07/22/19 21:05 Problem List - Problems (1) CHF (congestive heart failure) Code(s): I50.9 - HEART FAILURE, UNSPECIFIED Qualifiers: Heart failure type: diastolic Heart failure chronicity: chronic Qualified Code(s): I50.32 - Chronic diastolic (congestive) heart failure (2) CKD (chronic kidney disease) Code(s): N18.9 - CHRONIC KIDNEY DISEASE, UNSPECIFIED Qualifiers: Chronic kidney disease stage: stage 3 (moderate) Qualified Code(s): N18.3 - Chronic kidney disease, stage 3 (moderate) (3) Small bowel obstruction Code(s): K56.609 - UNSP INTESTNL OBST, UNSP TO PARTIAL VERSUS COMPLETE OBST (4) Atrial fibrillation Code(s): I48.91 - UNSPECIFIED ATRIAL FIBRILLATION Qualifiers: Atrial fibrillation type: persistent Qualified Code(s): I48.1 - Persistent atrial fibrillation (5) Coronary artery disease Code(s): I25.10 - ATHSCL HEART DISEASE OF [place] CORONARY ARTERY W/O ANG PCTRS Qualifiers: Coronary Disease-Associated Artery/Lesion type: [place] artery [place] vs. transplanted heart: [place] heart Associated angina: without angina Qualified Code(s): I25.10 - Atherosclerotic heart disease of [place] coronary artery without angina pectoris (6) Hyperlipidemia Code(s): E78.5 - HYPERLIPIDEMIA, UNSPECIFIED Qualifiers: Hyperlipidemia type: pure hypercholesterolemia Qualified Code(s): E78.00 - Pure hypercholesterolemia, unspecified; E78.0 - Pure hypercholesterolemia (7) Hypertension Code(s): I10 - ESSENTIAL (PRIMARY) HYPERTENSION Qualifiers: Hypertension type: essential hypertension Qualified Code(s): I10 - Essential (primary) hypertension (8) S/P CABG (coronary artery bypass graft) Code(s): Z95.1 - PRESENCE OF AORTOCORONARY BYPASS GRAFT (9) Chronic anticoagulation Code(s): Z79.01 - RETIREMENT (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 Transition zone - distal ileum within R sided inguinal hernia sac. Calcifications of L inguinal hernia sac. Some fluid in hernia sacs, in peritoneal cavity.) 1. SBO referable to recurrent incarcerated/strangulated right inguinal hernia with mesh s/p repair (removal of right inguinal hernia mesh, segmental resection of small bowel) wound infection 2. CAD s/p CABG 3. Persistent AF 4. Chronic venous insufficiency 5. Carotid stenosis 6. Gout 7. Acute on ckd resolving to baseline PLAN: 1. Continue post op wound care, wound vac placed, analgesia as needed, abx resumed per C&S 2. Continue Allopurinol 100 mg QD, Lipitor 20 mg QD, Xarelto 20 mg QD, Aldactone 25 mg QD and Toprol XL 25 mg QD for rate-control. Demadex held 3. DVT prophylaxis, compression therapy and PT as tolerated 4. Eventual f/u with his delinquency counselor Dr. Jairo Aldrich at [facility] upon discharge
--- NOTE | 2019-08-05 14:52 | PN ---
Progress Note, Physician Chief Complaint: patient seen and examined no distress - Current Medication List Current Medications: Active Medications Acetaminophen (Tylenol -) 650 mg PO Q4H PRN PRN Reason: FEVER Last Admin: 08/02/19 17:18 Dose: 650 mg Allopurinol (Zyloprim -) 100 mg PO DAILY [facility] Last Admin: 08/05/19 11:44 Dose: 100 mg Atorvastatin Calcium (Lipitor -) 20 mg PO HS [facility] Last Admin: 08/04/19 22:02 Dose: 20 mg Docusate Sodium (Colace -) 100 mg PO DAILY [facility] Last Admin: 08/05/19 11:44 Dose: 100 mg Emollient Ointment (Aquaphor -) 1 applic TP BID [facility] Last Admin: 08/05/19 11:44 Dose: 1 applic Ceftriaxone Sodium 1 gm/ (Dextrose) 50 mls @ 100 mls/hr IVPB DAILY [facility]; Protocol Last Admin: 08/05/19 11:45 Dose: 100 mls/hr Metronidazole (Flagyl 500mg Premixed Ivpb -) 500 mg in 100 mls @ 100 mls/hr IVPB Q8H-IV [facility] Last Admin: 08/05/19 11:44 Dose: 100 mls/hr Lactic Acid (Lac-Hydrin 12) 1 applic TP BID PRN PRN Reason: DRY SKIN Metoprolol Succinate (Toprol Xl -) 25 mg PO DAILY [facility] Last Admin: 08/05/19 11:44 Dose: 25 mg Ondansetron HCl (Zofran Injection) 4 mg IVPUSH Q8H PRN PRN Reason: NAUSEA Oxycodone HCl (Roxicodone -) 5 mg PO Q4H PRN PRN Reason: PAIN LEVEL 7 - 10 Last Admin: 08/04/19 22:02 Dose: 5 mg Rivaroxaban (Xarelto) 20 mg PO DAILY@1800 [facility] Last Admin: 08/04/19 17:43 Dose: 20 mg Spironolactone (Aldactone -) 25 mg PO DAILY [facility] Last Admin: 08/05/19 11:44 Dose: 25 mg Tramadol HCl (Ultram -) 50 mg PO Q8H PRN PRN Reason: PAIN LEVEL 4 - 6 Last Admin: 08/03/19 18:02 Dose: 50 mg - Objective Vital Signs: Vital Signs Temperature 97.5 F L 08/05/19 11:45 Pulse Rate 70 09/23/19 11:45 Respiratory Rate 19 08/05/19 11:45 Blood Pressure 145/81 08/05/19 11:45 O2 Sat by Pulse Oximetry (%) 96 08/04/19 09:00 Constitutional: Yes: Calm Cardiovascular: Yes: Regular Rate and Rhythm, S1, S2 Respiratory: Yes: CTA Bilaterally Gastrointestinal: Yes: Normal Bowel Sounds, Soft Extremities: Yes: Other (wrapped) Edema: No Labs: CBC, BMP 08/03/19 07:04 08/03/19 07:04 INR, PTT INR 1.23 (0.83-1.09) H 07/22/19 21:05 Problem List - Problems (1) Incarcerated right inguinal hernia Assessment/Plan: s/p surgery oob to chair analgesic iv abx wound vac Microbiology 08/01/19 19:46 Groin - Right Gram Stain - Final 08/01/19 19:46 Groin - Right Wound Culture - Preliminary Enterobacter Cloacae Enterococcus Faecium Pending Organism Code(s): K40.30 - UNIL INGUINAL HERNIA, W OBST, W/O GANGR, NOT SPCF RECUR (2) Atrial fibrillation Assessment/Plan: xarelto and toprol for rate control Code(s): I48.91 - UNSPECIFIED ATRIAL FIBRILLATION Qualifiers: Atrial fibrillation type: persistent Qualified Code(s): I48.1 - Persistent atrial fibrillation (3) Hyperlipidemia Assessment/Plan: statin Code(s): E78.5 - HYPERLIPIDEMIA, UNSPECIFIED Qualifiers: Hyperlipidemia type: pure hypercholesterolemia Qualified Code(s): E78.00 - Pure hypercholesterolemia, unspecified; E78.0 - Pure hypercholesterolemia
--- NOTE | 2019-08-05 16:06 | PN ---
Progress Note, Physician History of Present Illness: AWAKE, ALERT NO F/C WBC WNL NO C/O ABDOMINAL PAIN NO N/V + BM - Current Medication List Current Medications: Active Medications Acetaminophen (Tylenol -) 650 mg PO Q4H PRN PRN Reason: FEVER Last Admin: 08/02/19 17:18 Dose: 650 mg Allopurinol (Zyloprim -) 100 mg PO DAILY [facility] Last Admin: 08/05/19 11:44 Dose: 100 mg Atorvastatin Calcium (Lipitor -) 20 mg PO HS [facility] Last Admin: 08/04/19 22:02 Dose: 20 mg Docusate Sodium (Colace -) 100 mg PO DAILY [facility] Last Admin: 08/05/19 11:44 Dose: 100 mg Emollient Ointment (Aquaphor -) 1 applic TP BID [facility] Last Admin: 08/05/19 11:44 Dose: 1 applic Metronidazole (Flagyl 500mg Premixed Ivpb -) 500 mg in 100 mls @ 100 mls/hr IVPB Q8H-IV [facility] Last Admin: 08/05/19 11:44 Dose: 100 mls/hr Piperacillin Sod/Tazobactam (Sod 3.375 gm/ Dextrose) 50 mls @ 100 mls/hr IVPB Q8H-IV [facility]; Protocol Lactic Acid (Lac-Hydrin 12) 1 applic TP BID PRN PRN Reason: DRY SKIN Metoprolol Succinate (Toprol Xl -) 25 mg PO DAILY [facility] Last Admin: 08/05/19 11:44 Dose: 25 mg Ondansetron HCl (Zofran Injection) 4 mg IVPUSH Q8H PRN PRN Reason: NAUSEA Oxycodone HCl (Roxicodone -) 5 mg PO Q4H PRN PRN Reason: PAIN LEVEL 7 - 10 Last Admin: 08/04/19 22:02 Dose: 5 mg Rivaroxaban (Xarelto) 20 mg PO DAILY@1800 [facility] Last Admin: 08/04/19 17:43 Dose: 20 mg Spironolactone (Aldactone -) 25 mg PO DAILY [facility] Last Admin: 08/05/19 11:44 Dose: 25 mg Tramadol HCl (Ultram -) 50 mg PO Q8H PRN PRN Reason: PAIN LEVEL 4 - 6 Last Admin: 08/03/19 18:02 Dose: 50 mg - Objective Vital Signs: Vital Signs Temperature 97.5 F L 08/05/19 11:45 Pulse Rate 70 08/05/19 11:45 Respiratory Rate 19 08/05/19 11:45 Blood Pressure 145/81 08/05/19 11:45 O2 Sat by Pulse Oximetry (%) 96 08/04/19 09:00 Constitutional: Yes: No Distress Eyes: Yes: Conjunctiva Clear Cardiovascular: Yes: Regular Rate and Rhythm, S1, S2 Respiratory: Yes: CTA Bilaterally Gastrointestinal: Yes: Normal Bowel Sounds, Soft, Other (+ VAC IN PLACE RLQ SURGICAL WOUND). No: Tenderness Edema: Yes Integumentary: Yes: Venous Stasis Changes Labs: CBC, BMP 08/03/19 07:04 08/03/19 07:04 INR, PTT INR 1.23 (0.83-1.09) H 07/22/19 21:05 Assessment/Plan S/P WOUND DEBRIDEMENT, VAC S/P REPAIR INCARCERATED HERNIA + E COLI/ VRE URINE SUBSTITUTE ZOSYN PICC FOR OUTPATIENT IV ANTIBIOTICS AT [facility]
[2019-08-05] MEDS ORDERED: PIPERACILLIN/TAZOBACTAM 3.375 GM VIAL IVPB ONE (17:38)
[2019-08-05] MEDS: PIPERACILLIN/TAZOB 3.375 GM 3.375 GM in DEXTROSE 5%-WATER - 50 ML IVPB SCH (17:40)
[2019-08-05] MEDS: RIVAROXABAN 20 MG TABLET PO SCH (17:41)
[2019-08-05] MEDS: ATORVASTATIN CA 20 MG TABLET (FP) PO SCH (21:05)
[2019-08-06] MEDS: PIPERACILLIN/TAZOB 3.375 GM 3.375 GM in DEXTROSE 5%-WATER - 50 ML IVPB SCH ×2 (03:00→09:40)
[2019-08-06] MEDS: oxyCODONE HCL 5 MG TABLET PO PRN ×2 (05:48→14:31)
[2019-08-06] MEDS ORDERED: PIPERACILLIN/TAZOBACTAM 3.375 GM VIAL IVPB ONE (08:50)
[2019-08-06] MEDS ORDERED: DEXTROSE 5%-WATER - 50 ML IVPB ONE (08:50)
[2019-08-06] MEDS: metoPROLOL SUCCINATE 25 MG TAB.SR.24H (FP) PO SCH (09:39)
[2019-08-06] MEDS: DOCUSATE SODIUM 100 MG CAPSULE (FP) PO SCH (09:39)
[2019-08-06] MEDS: SPIRONOLACTONE 25 MG TABLET (FP) PO SCH (09:39)
[2019-08-06] MEDS: ALLOPURINOL 100 MG TABLET (FP) PO SCH (09:39)
[2019-08-06] MEDS: MINERAL OIL/PET HY-PHL TOPICAL OINTMENT 454 GM JAR TP SCH (09:41)
--- NOTE | 2019-08-06 09:47 | PN ---
Progress Note, Physician Chief Complaint: Reccurent incarcerated right inguinal hernia with SBO History of Present Illness: 79 yo male PMH Afib on eliquis, HTN, CABG, CHF presented to the ED with three days of lower abdominal pain, nausea and vomiting. He reports that the pain began on Monday after eating a sandwhich and has been worsening since its onset. 8/10 intensity, no radiation, sharp. He has been stable post operatively and has resumed GI fucntion. VAC dressing was applied and in draining well. - Current Medication List Current Medications: Active Medications Acetaminophen (Tylenol -) 650 mg PO Q4H PRN PRN Reason: FEVER Last Admin: 08/02/19 17:18 Dose: 650 mg Allopurinol (Zyloprim -) 100 mg PO DAILY [facility] Last Admin: 08/06/19 09:39 Dose: Not Given Atorvastatin Calcium (Lipitor -) 20 mg PO HS [facility] Last Admin: 08/05/19 21:05 Dose: 20 mg Docusate Sodium (Colace -) 100 mg PO DAILY [facility] Last Admin: 08/06/19 09:39 Dose: Not Given Emollient Ointment (Aquaphor -) 1 applic TP BID [facility] Last Admin: 08/06/19 09:41 Dose: Not Given Metronidazole (Flagyl 500mg Premixed Ivpb -) 500 mg in 100 mls @ 100 mls/hr IVPB Q8H-IV [facility] Last Admin: 08/06/19 02:00 Dose: 100 mls/hr Piperacillin Sod/Tazobactam (Sod 3.375 gm/ Dextrose) 50 mls @ 100 mls/hr IVPB Q8H-IV [facility]; Protocol Last Admin: 08/06/19 09:40 Dose: 100 mls/hr Lactic Acid (Lac-Hydrin 12) 1 applic TP BID PRN PRN Reason: DRY SKIN Metoprolol Succinate (Toprol Xl -) 25 mg PO DAILY [facility] Last Admin: 08/06/19 09:39 Dose: 25 mg Ondansetron HCl (Zofran Injection) 4 mg IVPUSH Q8H PRN PRN Reason: NAUSEA Oxycodone HCl (Roxicodone -) 5 mg PO Q4H PRN PRN Reason: PAIN LEVEL 7 - 10 Last Admin: 08/06/19 05:48 Dose: 5 mg Rivaroxaban (Xarelto) 20 mg PO DAILY@1800 [facility] Last Admin: 08/05/19 17:41 Dose: 20 mg Spironolactone (Aldactone -) 25 mg PO DAILY [facility] Last Admin: 08/06/19 09:39 Dose: 25 mg Tramadol HCl (Ultram -) 50 mg PO Q8H PRN PRN Reason: PAIN LEVEL 4 - 6 Last Admin: 08/03/19 18:02 Dose: 50 mg - Objective Vital Signs: Vital Signs Temperature 97.6 F 08/06/19 05:41 Pulse Rate 71 08/06/19 05:41 Respiratory Rate 20 08/06/19 05:41 Blood Pressure 125/65 08/06/19 05:41 O2 Sat by Pulse Oximetry (%) 98 08/05/19 21:00 Vital Signs Period Temp Pulse Resp BP Sys/Blas Pulse Ox Last 24 Hr 97.5 F-98.5 F 68-74 19-20 125-145/65-82 98 Intake & Output 08/05/19 08/06/19 08/06/19 23:59 07:59 15:59 Intake Total 450 350 Balance 450 350 Weight 214 lb Intake: IVPB 150 150 Oral 300 200 Other: Voiding Method Toilet # Unmeasured Voids [place] 3 Bowel Movement Yes # Bowel Movements 1 Weight Measurement Method Built in [facility] Constitutional: Yes: Well Nourished, No Distress, Calm Eyes: Yes: Conjunctiva Clear, EOM Intact HENT: Yes: Atraumatic, Normocephalic Neck: Yes: Supple, Trachea Midline Cardiovascular: Yes: Regular Rate and Rhythm, S1, S2 Respiratory: Yes: Regular, CTA Bilaterally Gastrointestinal: Yes: Normal Bowel Sounds, Soft, Abdomen, Obese. No: Tenderness ...Rectal Exam: Yes: Deferred Genitourinary: Yes: Scrotal Edema. No: CVA Tenderness - Left, CVA Tenderness - Right Musculoskeletal: No: Muscle Pain, Muscle Weakness Extremities: No: Cyanosis, Deformity Edema: No Peripheral Pulses WNL: Yes Peripheral Pulses: Left Radial: 2+, Right Radial: 2+, Left Doralis Pedis: 2+, Right Dorsalis Pedis: 2+, Left Femoral: 2+, Right Femoral: 2+ Wound/Incision: Yes: Clean/Dry, Well Approximated, Dressing Dry and Intact Neurological: Yes: Alert, Oriented Psychiatric: Yes: Alert, Oriented Labs: CBC, BMP 08/03/19 07:04 08/03/19 07:04 INR, PTT INR 1.23 (0.83-1.09) H 07/22/19 21:05 Problem List - Problems (1) Incarcerated right inguinal hernia Assessment/Plan: 79 yo male with MMP with recurrent incarcerated right inginal hernia causing SBO and a reducible left inguinal hernia POD#14 s/p repair of right recurrent incarcerated RIH with mesh. Tolerating his diet complaining of right flank pain. Draining from the wound. WBC is up to 15K --> down to 8K Diet as tolerated Adequate analgesia OOB and ambulate Wound VAC fucntioning minimal draining VAC dressing: size small granulofoam, change q3day, f/u in wound care center May be discharged on Augmentin and Flaygl but will defer to ID Physical therapy evaluation for mobilization discharge at discretion of primary team Code(s): K40.30 - UNIL INGUINAL HERNIA, W OBST, W/O GANGR, NOT SPCF RECUR (2) CHF (congestive heart failure) Code(s): I50.9 - HEART FAILURE, UNSPECIFIED Qualifiers: Heart failure type: diastolic Heart failure chronicity: chronic Qualified Code(s): I50.32 - Chronic diastolic (congestive) heart failure (3) CKD (chronic kidney disease) Code(s): N18.9 - CHRONIC KIDNEY DISEASE, UNSPECIFIED Qualifiers: Chronic kidney disease stage: stage 3 (moderate) Qualified Code(s): N18.3 - Chronic kidney disease, stage 3 (moderate) (4) Small bowel obstruction Code(s): K56.609 - UNSP INTESTNL OBST, UNSP TO PARTIAL VERSUS COMPLETE OBST (5) Atrial fibrillation Code(s): I48.91 - UNSPECIFIED ATRIAL FIBRILLATION Qualifiers: Atrial fibrillation type: persistent Qualified Code(s): I48.1 - Persistent atrial fibrillation
--- NOTE | 2019-08-06 11:30 | DS ---
Physical Examination Vital Signs: Vital Signs Temperature 97.6 F 08/06/19 09:49 Pulse Rate 71 08/06/19 09:49 Respiratory Rate 19 08/06/19 09:49 Blood Pressure 123/58 L 08/06/19 09:49 O2 Sat by Pulse Oximetry (%) 98 08/05/19 21:00 Findings/Remarks: Mr. Arevalo is a 79 y/o M with hx afib on eliquis, HTN, CABG, CHF p/w three days of lower abdominal pain, N, V. He reports that the pain began on Monday after eating a sandwhich and has been worsening since its onset. 06/22 intensity, no radiation, sharp. He endorses nausea that also began on Monday, as well as 3x NBNB vomiting today. He reports that he has maintained a liquid diet since it's onset as he has been nauseated and concerned that he would vomit with solid food. He reports that the episodes of emesis today were after attempting to eat crackers. Hernia repair in 1992. Patient was noted to have saturated dressing, surgery re-called. Dressing and wound opened and noted with pus. Wound culture collected and wound vac placed. Restarted on IV antibiotics. Constitutional: Yes: Well Nourished, No Distress, Calm Cardiovascular: Yes: Regular Rate and Rhythm Respiratory: Yes: Regular Gastrointestinal: Yes: Normal Bowel Sounds, Soft, Other (wound vac) Musculoskeletal: Yes: Muscle Weakness Extremities: Yes: WNL Edema: No Peripheral Pulses WNL: Yes Wound/Incision: Yes: Other (wound vac) Neurological: Yes: Alert, Oriented Psychiatric: Yes: Alert, Oriented Labs: CBC, BMP 08/03/19 07:04 08/03/19 07:04 Discharge Summary Reason For Visit: SMALL BOWEL OBSTRUCTION Current Active Problems CHF (congestive heart failure) (Acute) CKD (chronic kidney disease) (Acute) Chronic anticoagulation (Acute) Incarcerated right inguinal hernia (Acute) Small bowel obstruction (Acute) UTI (urinary tract infection) (Acute) Hospital Course: Laboratory Last Values WBC 8.6 K/mm3 (4.0-10.0) 08/03/19 07:04 RBC 3.80 M/mm3 (4.00-5.60) L 08/03/19 07:04 Hgb 11.1 GM/dL (11.7-16.9) L 08/03/19 07:04 Hct 33.4 % (35.4-49) L 08/03/19 07:04 MCV 87.8 fl (80-96) 08/03/19 07:04 MCH 29.3 pg (25.7-33.7) 08/03/19 07:04 MCHC 33.4 g/dl (32.0-35.9) 08/03/19 07:04 RDW 15.1 % (11.9-15.9) 08/03/19 07:04 Plt Count 414 K/MM3 (134-434) D 08/03/19 07:04 MPV 7.2 fl (7.5-11.1) L 08/03/19 07:04 Absolute Neuts (auto) 12.5 K/mm3 (1.5-8.0) H 08/02/19 07:15 Neutrophils % 83.1 % (42.8-82.8) H 08/02/19 07:15 Lymphocytes % 8.8 % (8-40) 08/02/19 07:15 Monocytes % 5.0 % (3.8-10.2) 08/02/19 07:15 Eosinophils % 2.6 % (0-4.5) 08/02/19 07:15 Basophils % 0.5 % (0-2.0) 08/02/19 07:15 Nucleated RBC % 0 % (0-0) 08/02/19 07:15 PT with INR 14.60 SEC (9.7-13.0) H 07/22/19 21:05 INR 1.23 (0.83-1.09) H 07/22/19 21:05 PTT (Actin FS) 34.8 SECONDS (25.2-36.5) 07/22/19 21:05 Sodium 135 mmol/L (136-145) L 08/03/19 07:04 Potassium 4.5 mmol/L (3.5-5.1) 08/03/19 07:04 Chloride 100 mmol/L (98-107) 08/03/19 07:04 Carbon Dioxide 29 mmol/L (21-32) 08/03/19 07:04 Anion Gap 6 MMOL/L (8-16) L 08/03/19 07:04 BUN 29.1 mg/dL (7-18) H 08/03/19 07:04 Creatinine 1.1 mg/dL (0.55-1.3) 08/03/19 07:04 Est GFR (CKD-EPI)AfAm 73.61 08/03/19 07:04 Est GFR (CKD-EPI)NonAf 63.51 08/03/19 07:04 Random Glucose 86 mg/dL (74-106) 08/03/19 07:04 Lactic Acid 2.0 mmol/L (0.4-2.0) 07/22/19 21:05 Calcium 8.4 mg/dL (8.5-10.1) L 08/03/19 07:04 Total Bilirubin 0.6 mg/dL (0.2-1) 08/03/19 07:04 AST 64 U/L (15-37) H 08/03/19 07:04 ALT 30 U/L (13-61) 08/03/19 07:04 Alkaline Phosphatase 165 U/L (45-117) H 08/03/19 07:04 Creatine Kinase 98 U/L (26-308) 07/22/19 21:05 Troponin I < 0.02 ng/ml (0.00-0.05) 07/22/19 21:05 Total Protein 6.5 g/dl (6.4-8.2) 08/03/19 07:04 Albumin 2.0 g/dl (3.4-5.0) L 08/03/19 07:04 Lipase 79 U/L (73-393) 07/22/19 21:05 Urine Color Dk yellow 07/23/19 00:45 Urine Appearance Cloudy 07/23/19 00:45 Urine pH 5.0 (5.0-8.0) 07/23/19 00:45 Ur Specific [place] 1.031 (1.010-1.035) 07/23/19 00:45 Urine Protein Trace (NEGATIVE) 07/23/19 00:45 Urine Glucose (UA) Negative (NEGATIVE) 07/23/19 00:45 Urine Ketones Trace (NEGATIVE) H 07/23/19 00:45 Urine Blood Negative (NEGATIVE) 07/23/19 00:45 Urine Nitrite Negative (NEGATIVE) 07/23/19 00:45 Urine Bilirubin 2+ (NEGATIVE) H 07/23/19 00:45 Urine Urobilinogen 1.0 mg/dL (0.2-1.0) 07/23/19 00:45 Ur Leukocyte Esterase 1+ (NEGATIVE) H 07/23/19 00:45 Urine WBC (Auto) 42 /hpf (0-5) 07/23/19 00:45 Urine RBC (Auto) 4 /hpf (0-4) 07/23/19 00:45 Urine Casts (Auto) 28 /lpf (0-8) 07/23/19 00:45 U Pathogenic Cast Auto None seen /lpf (NEGATIVE) 07/23/19 00:45 U Epithel Cells (Auto) 2.6 /HPF (0-5/HPF) 07/23/19 00:45 Urine Bacteria (Auto) 1185.1 /hpf (NEGATIVE) 07/23/19 00:45 Blood Type A2B POSITIVE 07/23/19 12:30 Antibody Screen Negative 07/23/19 09:10 Microbiology 08/02/19 21:00 Blood - Peripheral Venous Blood Culture - Preliminary NO GROWTH OBTAINED AFTER 72 HOURS, INCUBATION TO CONTINUE FOR 2 DAYS. 08/02/19 17:45 Blood - Peripheral Venous Blood Culture - Preliminary NO GROWTH OBTAINED AFTER 72 HOURS, INCUBATION TO CONTINUE FOR 2 DAYS. 08/01/19 19:46 Groin - Right Gram Stain - Final 08/01/19 19:46 Groin - Right Wound Culture - Preliminary Enterobacter Cloacae Enterococcus Faecium Pending Organism 07/27/19 12:10 Urine - Urine Clean Catch Urine Culture - Final Escherichia Coli Vr Ec Faecium 07/25/19 08:00 Urine - Urine Munroe Urine Culture - Final Contaminated: Please Repeat Vital Signs Temp 97.6 F 08/06/19 09:49 Pulse 71 08/06/19 09:49 Resp 19 08/06/19 09:49 BP 123/58 L 08/06/19 09:49 Pulse Ox 98 08/05/19 21:00 Intake & Output 08/05/19 08/05/19 08/06/19 11:59 23:59 11:59 Intake Total 450 350 Balance 450 350 Weight 96.615 kg 97.069 kg Intake: IVPB 150 150 Oral 300 200 Other: Voiding Method Urinal Toilet # Unmeasured Voids [place] 4 3 Bowel Movement No Yes # Bowel Movements 1 Weight Measurement Method [facility] Condition: Stable - Instructions Diet, Activity, Other Instructions: Postoperative instructions: You had a right inguinal hernia repair with segmental ressection of small bowel on 07/24/[address] Xavier Barone of [facility]. Activity: Resume your usual activities gradually, but no heavy exertion or lifting more than 10-15 pounds for 4-6 weeks. Remove dressings 48 hours after surgery, if they are not already off. You may shower daily starting then, just pat the incision areas dry. No bath or swimming until skin incisions have healed. Royce should not need to be recovered with any dressings, unless you have been told otherwise. Eat lightly at first, but advance to your usual diet as tolerated. Pain: For pain, you may use and alternate Tylenol (acetaminophen) 1-2 pills and/ or ibuprofen 200 mg (1-3 pills) every 6 hours each as needed; this means that you can take one OR the other at 3-hour intervals. If you are prescribed a Tylenol/narcotic combination for severe pain, use it instead of plain Tylenol as needed and switch back when your pain starts decreasing. Do not take more than 4000 mg of acetaminophen in a day. Take medications as prescribed or indicated on the labeling. Follow-up: Call Dr. Barone' office at [phone] to make your postop appointment (Monday in approximately 2 weeks after surgery as advised). Clinic is held in the Wound Care [facility] on the fifth floor of [facility]. Call the office if you have: * increasing pain not responsive to pain medication * fever of 101F or higher * unusual or increasing bleeding or drainage from wounds * increasing redness or swelling at wound sites Also, see your primary medical doctor within 1-2 weeks. follow up with PMD Wound Vac: size small granuloform, change q3day, f/u in wound care center discharge home with Augmentin and Flagyl antibiotic therapy continue med regimen return to ER if develop fever, severe abdominal pain, respiratory distress, chest pain Referrals: Xavier Barone MD [Staff Physician] - Jairo Aldrich [Non Staff, Medical] - Disposition: [facility] - Home Medications Comprehensive Discharge Medication List: Ambulatory Orders Rivaroxaban [Xarelto] 15 mg PO DAILY 09/11/15 Atorvastatin Ca [Lipitor] 20 mg PO HS 11/28/18 Allopurinol [Zyloprim -] 100 mg PO DAILY #30 tablet MDD 1 07/26/19 Spironolactone [Aldactone -] 25 mg PO DAILY #30 tablet MDD 1 07/26/19 Nitrofurantoin Monohyd/M-Cryst [Macrobid -] 100 mg PO BID #14 capsule 08/01/19
[2019-08-06] MEDS: ACETAMINOPHEN 325 MG TABLET (FP) PO PRN (14:32)
[2019-08-06 16:11] VITALS: BP 136/68; PULSE 86; TEMP 98.8
--- NOTE | 2019-08-06 16:43 | PN ---
Progress Note, Physician History of Present Illness: AWAKE, ALERT NO F/C WBC WNL NO C/O ABDOMINAL PAIN NO N/V + BM PICC INSERTED - Current Medication List Current Medications: Active Medications Acetaminophen (Tylenol -) 650 mg PO Q4H PRN PRN Reason: FEVER Last Admin: 08/06/19 14:32 Dose: 650 mg Allopurinol (Zyloprim -) 100 mg PO DAILY [facility] Last Admin: 08/06/19 09:39 Dose: Not Given Atorvastatin Calcium (Lipitor -) 20 mg PO HS [facility] Last Admin: 08/05/19 21:05 Dose: 20 mg Docusate Sodium (Colace -) 100 mg PO DAILY [facility] Last Admin: 08/06/19 09:39 Dose: Not Given Emollient Ointment (Aquaphor -) 1 applic TP BID [facility] Last Admin: 08/06/19 09:41 Dose: Not Given Metronidazole (Flagyl 500mg Premixed Ivpb -) 500 mg in 100 mls @ 100 mls/hr IVPB Q8H-IV [facility] Last Admin: 08/06/19 13:22 Dose: 100 mls/hr Piperacillin Sod/Tazobactam (Sod 3.375 gm/ Dextrose) 50 mls @ 100 mls/hr IVPB Q8H-IV [facility]; Protocol Last Admin: 08/06/19 09:40 Dose: 100 mls/hr Lactic Acid (Lac-Hydrin 12) 1 applic TP BID PRN PRN Reason: DRY SKIN Metoprolol Succinate (Toprol Xl -) 25 mg PO DAILY [facility] Last Admin: 08/06/19 09:39 Dose: 25 mg Ondansetron HCl (Zofran Injection) 4 mg IVPUSH Q8H PRN PRN Reason: NAUSEA Oxycodone HCl (Roxicodone -) 5 mg PO Q4H PRN PRN Reason: PAIN LEVEL 7 - 10 Last Admin: 08/06/19 14:31 Dose: 5 mg Rivaroxaban (Xarelto) 20 mg PO DAILY@1800 [facility] Last Admin: 08/05/19 17:41 Dose: 20 mg Spironolactone (Aldactone -) 25 mg PO DAILY [facility] Last Admin: 08/06/19 09:39 Dose: 25 mg Tramadol HCl (Ultram -) 50 mg PO Q8H PRN PRN Reason: PAIN LEVEL 4 - 6 Last Admin: 08/03/19 18:02 Dose: 50 mg - Objective Vital Signs: Vital Signs Temperature 98.8 F 08/06/19 16:06 Pulse Rate 86 08/06/19 16:06 Respiratory Rate 22 H 08/06/19 16:06 Blood Pressure 136/68 08/06/19 16:06 O2 Sat by Pulse Oximetry (%) 96 08/06/19 09:00 Constitutional: Yes: No Distress Cardiovascular: Yes: Regular Rate and Rhythm, S1, S2 Respiratory: Yes: CTA Bilaterally Gastrointestinal: Yes: Normal Bowel Sounds, Soft, Other (RLQ WOUND PACKED). No : Tenderness Edema: Yes Integumentary: Yes: Venous Stasis Changes Labs: CBC, BMP 08/03/19 07:04 08/03/19 07:04 INR, PTT INR 1.23 (0.83-1.09) H 07/22/19 21:05 Assessment/Plan S/P WOUND DEBRIDEMENT, VAC S/P REPAIR INCARCERATED HERNIA + E COLI/ VRE URINE PICC INSERTED FOR OUTPATIENT IV ANTIBIOTICS AT [facility] DISCUSSED WITH SURGEON WOUND INFECTION SUPERFICIAL; DID NOT EXTEND TO MESH ADVISE ZOSYN Q8H FOR ADDITIONAL 7-10D
== END 2019-08-06 17:27 | DRG 330 ==
LOC: JER 18:53 → JERBED 07-23 01:54 → J6S 07-23 18:31
PROVIDERS: ADMIT Family Medicine; ATTEND Family Medicine
PROC: 0DB80ZZ Excision of Small Intestine, Open Approach (ICD-10-PCS; 2019-07-23)
PROC: 0WPF0JZ Removal of Synthetic Substitute from Abdominal Wall, Open Approach (ICD-10-PCS; 2019-07-23)
PROC: 0YU50JZ Supplement Right Inguinal Region with Synthetic Substitute, Open Approach (ICD-10-PCS; principal; 2019-07-23 13:00)
PROC: 02HV33Z Insertion of Infusion Device into Superior Vena Cava, Percutaneous Approach (ICD-10-PCS; 2019-08-06)
PROC: B518ZZA Fluoroscopy of Superior Vena Cava, Guidance (ICD-10-PCS; 2019-08-06)
DX: K40.31 Unilateral inguinal hernia, with obstruction, without gangrene, recurrent (principal); I13.0 Hypertensive heart and chronic kidney disease with heart failure and stage 1 through stage 4 chronic kidney disease, or unspecified chronic kidney disease; I50.32 Chronic diastolic (congestive) heart failure; N17.9 Acute kidney failure, unspecified; I48.1 Persistent atrial fibrillation; N39.0 Urinary tract infection, site not specified; T81.42XA Infection following a procedure, deep incisional surgical site, initial encounter; I25.10 Atherosclerotic heart disease of native coronary artery without angina pectoris; I48.91 Unspecified atrial fibrillation; I73.89 Other specified peripheral vascular diseases; E66.8 Other obesity; Z68.27 Body mass index [BMI] 27.0-27.9, adult; N18.3 Chronic kidney disease, stage 3 (moderate); M10.9 Gout, unspecified; I65.29 Occlusion and stenosis of unspecified carotid artery; F41.9 Anxiety disorder, unspecified; R26.81 Unsteadiness on feet; B96.20 Unspecified Escherichia coli [E. coli] as the cause of diseases classified elsewhere; B35.1 Tinea unguium; S81.801A Unspecified open wound, right lower leg, initial encounter; L85.3 Xerosis cutis; I87.8 Other specified disorders of veins; Z79.01 Long term (current) use of anticoagulants; Z95.1 Presence of aortocoronary bypass graft
CPT/HCPCS: 36415; 36569; 71045-TC-FY; 74176-TC; 80048; 80053; 81003; 82550; 83605; 83690; 84484; 85025; 85027; 85610; 85730; 86850; 86900; 86901; 87040; 87070; 87086; 87186; 87205; 88304-TC; 88307-TC; 93005; 93010; 94010; 94760; 97116-GP; 97162-GP; 99285-25; J0131; J1644; J7030